=== PATIENT | male | born 1945 | race Caucasian/White ===

== ENCOUNTER 2019-09-16 11:16 | Outpatient (CLI) | payer MEDICARE, MEDICAID | END 2019-09-16 11:17 | disposition critical access hospital (66) | LOC: EMS 11:16 | PROVIDERS: ATTEND Surgery | DX: M54.5 Low back pain (principal) | CPT/HCPCS: A0425; A0429 ==

== ENCOUNTER 2019-09-16 11:35 | Emergency (ER) | payer MEDICARE, MEDICAID ==
[2019-09-16] MEDS ORDERED: KETOROLAC 60 MG/2 ML VIAL IM STA (13:05)
--- NOTE | 2019-09-16 13:08 | ED Physician Documentation ---
PD HPI BACK PAIN - Stated complaint Stated Complaint: BACK PX - Chief complaint Chief Complaint: Back Pain - History obtained from History obtained from: Patient (73-year-old male is brought in by EMS today with chief complaint of lower back pain right greater than left. The patient states that a week ago he was walking per his usual caring a bag of groceries when all of a sudden he felt a sharp pain in his lower back and he said that made him fall to the ground, he denies hitting his head or having any loss of consciousness. Since that time he has had this continued pain in his lower back radiating from side to side. He denies any loss of bowel or bladder function. He does have some numbness tingling to the balls of his feet, but he states this is chronic for him. He states he also has a chronic history of sciatica alternating sides. He has not taken any pain medicines or anti-inflammatories for this.) Review of Systems Constitutional: reports: Reviewed and negative Cardiac: reports: Reviewed and negative Respiratory: reports: Reviewed and negative Musculoskeletal: reports: Back pain. denies: Extremity pain Neurologic: reports: Reviewed and negative PD PAST MEDICAL HISTORY - Past Medical History Past Medical History: Yes Cardiovascular: None Respiratory: None Neuro: None Endocrine/Autoimmune: None GI: None : None Psych: None Musculoskeletal: None Derm: None - Past Surgical History Past Surgical History: No - Present Medications Home Medications: Ambulatory Orders Medication Instructions Recorded Confirmed Atorvastatin [Lipitor] 10 mg PO DAILY 07/29/19 07/29/19 Cholecalciferol (Vitamin D3) 25 mcg PO BID 07/29/19 07/29/19 [Vitamin D3] Cyanocobalamin (Vitamin B-12) 1,000 mcg PO BID 07/29/19 07/29/19 [Vitamin B-12] Saw [place] [Saw [place]] 450 mg PO BID 07/29/19 07/29/19 amLODIPine [Norvasc] 5 mg PO DAILY 07/29/19 07/29/19 traMADol [Ultram] 50 mg PO BID 07/29/19 07/29/19 Ibuprofen [Motrin] 800 mg PO Q8H PRN #30 tablet 09/16/19 - Allergies Allergies/Adverse Reactions: Allergies Allergy/AdvReac Type Severity Reaction Status Date / Time No Known Drug Allergies Allergy Unverified 09/16/19 11:45 - Social History Does the pt smoke?: Yes Smoking Status: Former smoker Does the pt drink ETOH?: Yes Does the pt have substance abuse?: No - Immunizations Immunizations are current?: No - POLST Patient has POLST: No PD ED PE NORMAL - General General: Alert and oriented X 3 - HEENT HEENT: Atraumatic, PERRL - Cardiac Cardiac: RRR - Respiratory Respiratory: No respiratory distress - Back Back: No CVA TTP - Extremities Extremities: No deformity, No tenderness to palpate, Normal ROM s pain, No edema PD ED PE EXPANDED - General General: No acute distress, Well developed/nourished - Back Back: Soft tissue tenderness (right paraspinous muscles. w/o sciatica pain. ), Limited ROM. No: Straight leg raise + R, Straight leg raise + L, CVA TTP right, CVA TTP left Results - Vitals Vitals: Vital Signs - 24 hr 09/16/19 09/16/19 11:42 13:44 Temperature 36.9 C Heart Rate 102 H 90 Respiratory 12 12 Rate Blood Pressure 156/69 H 150/70 H O2 Saturation 97 99 Oxygen O2 Source Room air PD MEDICAL DECISION MAKING - ED course Complexity details: reviewed results, re-evaluated patient, d/w patient (the pt was advised to start taking his Rx of Tramadol for pain control. The pt has improvement in pain after ketorolac IM. ) Departure - Departure Disposition: 01 Home, Self Care Clinical Impression: Back pain Qualifiers: Back pain location: low back pain Chronicity: acute Back pain laterality: right Sciatica presence: without sciatica Qualified Code(s): M54.5 - Low back pain Condition: Good Instructions: IBUPROFEN (Adult), ED Sciatica Prescriptions: Ibuprofen [Motrin] 800 mg PO Q8H PRN #30 tablet PRN Reason: PAIN &/OR FEVER Comments: Take the Tramadol prescription from your PCP for your pain control, use stool softners, fiber supplements to help prevent constipation. You can take the Ibuprofen as directed. Follow up with your PCP for further evaluation & testing. You may return to the ED for new or worsening symptoms. Discharge Date/Time: 09/16/19 13:46
[2019-09-16 13:46] VITALS: BP 150/70
== END 2019-09-16 13:46 | disposition home or self-care (01) ==
LOC: EDUNIT# → ED 11:35
DX: M54.5 Low back pain (principal); Z87.891 Personal history of nicotine dependence
CPT/HCPCS: 96372; 99283; 99284

== ENCOUNTER 2019-11-18 07:47 | Outpatient (CLI) | payer MEDICAID, MEDICARE, OTHER ==
[2019-11-18] MEDS ORDERED: IOVERSOL 320 100 ML VIAL IVP ONE (07:57)
[2019-11-18] MEDS ORDERED: IOVERSOL 320 50 ML VIAL ONE (07:57)
--- NOTE | 2019-11-18 15:17 | CT Report ---
Reason: CHRONIC LYMPHOCYTIC LEUKEMIA Procedure Date: 11/18/2019 Accession Number: [id number] / [id number] Procedure: CT - CHEST W CPT Code: Final Report FULL RESULT: EXAM: CT CHEST EXAM DATE: 11/18/2019 09:46 AM. CLINICAL HISTORY: CHRONIC LYMPHOCYTIC LEUKEMIA. COMPARISONS: L-SPINE 09/06/2006 12:44 PM T-SPINE 09/06/2006 12:11 PM. TECHNIQUE: Routine helical CT imaging was performed through the chest. IV contrast: None. Reconstructions: Coronal and sagittal. In accordance with CT protocol optimization, one or more of the following dose reduction techniques were utilized for this exam: automated exposure control, adjustment of mA and/or KV based on patient size, or use of iterative reconstructive technique. FINDINGS: Lungs/Pleura: Moderate paraseptal emphysema is present bilaterally. No lung masses or nodules. Mediastinum: No adenopathy or masses. Mild aortic and coronary arterial calcifications indicate atherosclerosis. Bones: Bones are diffusely osteopenic. Degenerative disk and facet disease is present at the cervicothoracic junction and there is also mild lower thoracic degenerative disk and facet disease. There are chronic appearing compression deformities of the T12, L1, and L2 vertebrae which are new since the lumbar and thoracic spine MRIs performed 09/06/2006. No bony lesion is apparent. Visualized Abdomen: Unremarkable. Other: None. IMPRESSION: 1. No thoracic adenopathy. 2. No lung masses are nodules. 3. Bilateral paraseptal emphysema. 4. Low-grade compression deformities of T12, L1, and L2, likely chronic. Bones are also osteopenic. RADIA
--- NOTE | 2019-11-18 15:29 | CT Report ---
Reason: CHRONIC LYMPHOCYTIC LEUKEMIA Procedure Date: 11/18/2019 Accession Number: [id number] / [id number] Procedure: CT - Abdomen/Pelvis W CPT Code: Final Report FULL RESULT: EXAM: CT ABDOMEN AND PELVIS WITH IV CONTRAST EXAM DATE: 11/18/2019 09:46 AM. CLINICAL HISTORY: Chronic lymphocytic leukemia. COMPARISONS: CT CHEST W 11/18/2019 9:28 AM. MRI L-SPINE 09/06/2006 12:44 PM. TECHNIQUE: Routine helical CT imaging was performed through the abdomen and pelvis. IV contrast: 100 mL Optiray 320. Enteric contrast: No. Reconstructions: Coronal and sagittal. In accordance with CT protocol optimization, one or more of the following dose reduction techniques were utilized for this exam: automated exposure control, adjustment of mA and/or KV based on patient size, or use of iterative reconstructive technique. FINDINGS: Lung Bases: Unremarkable. Liver: Normal. No masses. Gallbladder/Bile Ducts: Unremarkable. Spleen: Normal. Pancreas: Normal. Adrenal Glands: Normal. Kidneys: Normal. No masses or hydronephrosis. Retroaortic left renal vein, normal variant. Peritoneal Cavity/Bowel: Normal. No free fluid, free air or adenopathy. No masses or acute inflammatory process. The appendix is well visualized and normal. Pelvic Organs: Normal. The bladder and visualized pelvic organs are within normal limits. Vasculature: Some minimal vascular calcifications. No aneurysm. No leak. Bones: Comparing lumbar spine segments to the 2006 MRI study shows that there are multilevel areas of osteopenic anterior 2 column burst type compression injuries. T12 shows 50% height loss and about 3 mm posterior retropulsion. No stenosis. L1 shows about 30% superior endplate compression injury with posterior retropulsion of about 3 mm. L2 shows about 50% superior endplate compression with about 2 mm posterior retropulsion. No stenosis. L5 shows about 75% height loss with about 3 mm posterior retropulsion. There is diffuse global osteopenic change. No other bony fractures are noted. Left and right hip joint spaces are narrow. Other: None. IMPRESSION: 1. No abnormally enlarged lymph nodes, solid organs of the upper abdomen appear unremarkable. 2. Diffuse moderate to severe osteopenic change with multilevel old anterior 2 column compression burst type injuries involving T12, L1, L2 and L5. No severe stenosis. RADIA
[2019-11-19] MEDS ORDERED: IOVERSOL 320 100 ML VIAL IVP ONE (12:21)
[2019-11-19] MEDS ORDERED: IOVERSOL 320 50 ML VIAL PO ONE (12:21)
== END 2019-11-18 07:48 | disposition home or self-care (01) ==
LOC: LAB 07:47
PROVIDERS: ATTEND Internal Medicine
DX: C91.10 Chronic lymphocytic leukemia of B-cell type not having achieved remission (principal)
CPT/HCPCS: 71260; 74177

== ENCOUNTER 2020-09-28 10:59 | Emergency (ER) | payer MEDICAID, MEDICARE, OTHER ==
[2020-09-28] MEDS ORDERED: ALBUTEROL NEB 2.5 MG/3 ML INH STA (11:17)
[2020-09-28] MEDS ORDERED: DEXTROSE 50% ABBOJECT 25 GM/50 ML SYRINGE IVP STA (11:17)
[2020-09-28] MEDS ORDERED: INSULIN REGULAR HUMAN 100 UNIT/1 ML 10 ML MDV IVP STA (11:19)
[2020-09-28] MEDS ORDERED: SODIUM POLYSTYRENE SULFONATE 15 GM/60 ML BOTTLE PO STA (11:20)
[2020-09-28] MEDS ORDERED: CALCIUM GLUCONATE 1000 MG/10 ML VIAL IVP STA (12:15)
[2020-09-28 14:55] LABS: CALCIUM 9.2 mg/dL (8.5-10.3); POTASSIUM 5.3 mmol/L (3.5-5.0)
[2020-09-28 15:50] VITALS: BP 151/86
--- NOTE | 2020-09-28 15:53 | ED Physician Documentation ---
History of Present Illness - Stated complaint Stated Complaint: POTASSIUM LEVELS - Chief complaint Chief Complaint: General - History obtained from History obtained from: Patient - Additonal information Additional information: 74-year-old man with past medical history of multiple myeloma and CLL presents with fatigue over the past few days accompanied by elevated potassium at my clinic today of 6.6. Otherwise asymptomatic. Review of Systems Ten Systems: 10 systems reviewed and negative PD PAST MEDICAL HISTORY - Past Medical History Cardiovascular: None Respiratory: None Neuro: None Endocrine/Autoimmune: None GI: None : None Psych: None Musculoskeletal: None Derm: None - Past Surgical History Past Surgical History: No - Present Medications Home Medications: Ambulatory Orders Medication Instructions Recorded Confirmed Atorvastatin [Lipitor] 10 mg PO DAILY 07/29/19 09/28/20 Cholecalciferol (Vitamin D3) 25 mcg PO BID 07/29/19 09/28/20 [Vitamin D3] Cyanocobalamin (Vitamin B-12) 1,000 mcg PO BID 07/29/19 09/28/20 [Vitamin B-12] Saw [place] 450 mg PO BID 07/29/19 09/28/20 amLODIPine [Norvasc] 5 mg PO DAILY 07/29/19 09/28/20 traMADol [Ultram] 50 mg PO BID 07/29/19 09/28/20 Ibuprofen [Motrin] 800 mg PO Q8H PRN #30 tablet 09/16/19 09/28/20 Acyclovir [Zovirax] 400 mg PO BID 30 Days #60 tablet 09/06/20 Ondansetron HCl 8 mg PO Q8H PRN #30 tablet 09/06/20 Sulfamethox/Trimeth 800/160 1 each PO UD #12 tablet 09/06/20 [Bactrim Ds 800/160] dexAMETHasone [Decadron] 10 cap PO ONCE 09/27/20 09/28/20 - Allergies Allergies/Adverse Reactions: Allergies Allergy/AdvReac Type Severity Reaction Status Date / Time No Known Drug Allergies Allergy Verified 09/28/20 09:18 - Social History Does the pt smoke?: Yes Smoking Status: Former smoker Does the pt drink ETOH?: Yes Does the pt have substance abuse?: No - Immunizations Immunizations are current?: No - POLST Patient has POLST: No PD ED PE NORMAL - Vitals Vital signs reviewed: Yes - General General: Alert and oriented X 3, No acute distress, Well developed/nourished - HEENT HEENT: Atraumatic, PERRL, EOMI, Moist mucous membranes - Neck Neck: Supple, no meningeal sign - Cardiac Cardiac: RRR - Respiratory Respiratory: No respiratory distress - Abdomen Abdomen: Non tender, Non distended - Derm Derm: Normal color, Warm and dry - Extremities Extremities: No deformity - Neuro Neuro: Alert and oriented X 3 - Psych Psych: Normal mood, Normal affect Results - Vitals Vitals: Vital Signs - 24 hr 09/28/20 09/28/20 09/28/20 11:09 12:15 15:49 Temperature 37.1 C 36.5 C Heart Rate 96 85 99 Respiratory 19 17 12 Rate Blood Pressure 158/59 H 151/86 H O2 Saturation 100 98 Oxygen O2 Source Room air - Labs Labs: Laboratory Tests 09/28/20 14:40 Sodium 131 L Potassium 5.3 H Chloride 104 Carbon Dioxide 20 L Anion Gap 7.0 BUN 26 H Creatinine 2.0 H Estimated GFR (MDRD) 33 L Glucose 109 H Calcium 9.2 PD MEDICAL DECISION MAKING - ED course ED course: Repeat Potassium here improved to 5.3. EKG without peaked T waves. Patient will follow up outpatient on Saturday with Dr. Aguilar. Strict return precautions given. Departure - Departure Disposition: 01 Home, Self Care Clinical Impression: Hyperkalemia Condition: Good Instructions: Hyperkalemia Dc, Diet Low Potassium Dc Follow-Up: WENDY AGUILAR MD [Provider Admit Priv/Credential] - Comments: You were seen in the emergency department for hyperkalemia. The prior potassium down by giving you medications called Kayexalate, albuterol, insulin and dextrose. Please return to the emergency department if you experience any new o r worsening symptoms or other concerns. Follow-up with Dr. Aguilar on Saturday. You will need repeat blood work at that time. Discharge Date/Time: 09/28/20 16:28
== END 2020-09-28 16:28 | disposition home or self-care (01) ==
LOC: ED 10:59
DX: E87.5 Hyperkalemia (principal); Z87.891 Personal history of nicotine dependence
CPT/HCPCS: 36415; 80048; 93005; 94640; 96374; 96375; 99281; 99284; A9270; J1815

== ENCOUNTER 2021-12-20 08:20 | Outpatient (CLI) | payer OTHER ==
[2021-12-20 09:33] LABS: CHOL/HDL RATIO 3.3 (<5.0); CHOLESTEROL 132 mg/dL; HDL CHOLESTEROL 40 mg/dL; LDL CHOLESTEROL,CALCULATED 52 mg/dL; LDL/HDL RATIO 1.3 (<3.6); TRIGLYCERIDES 199 mg/dL; VLDL CHOLESTEROL 40 mg/dL
[2021-12-20 11:45] LABS: ESTIMATED AVERAGE GLUCOSE 108 mg/dL (70-100); HEMOGLOBIN A1c% 5.4 % (4.27-6.07)
== END 2021-12-20 08:21 | disposition home or self-care (01) ==
LOC: LAB 08:20
PROVIDERS: ATTEND Internal Medicine
DX: R73.03 Prediabetes (principal)
CPT/HCPCS: 36415; 80061; 83036; 83721

== ENCOUNTER 2022-04-25 08:59 | Outpatient (CLI) | payer OTHER ==
[2022-04-25 12:24] LABS: ESTIMATED AVERAGE GLUCOSE 128 mg/dL (70-100); HEMOGLOBIN A1c% 6.1 % (4.27-6.07)
== END 2022-04-25 09:00 | disposition home or self-care (01) ==
LOC: LAB 08:59
PROVIDERS: ATTEND Internal Medicine
DX: R73.03 Prediabetes (principal)
CPT/HCPCS: 36415; 83036

== ENCOUNTER 2022-05-02 15:09 | Outpatient (CLI) | payer OTHER ==
--- NOTE | 2022-05-02 17:18 | XRAY Report ---
PROCEDURE: Chest 2 View X-Ray INDICATIONS: PHENUMONIA,PLURTAL EFFUSION TECHNIQUE: 2 view(s) of the chest. COMPARISON: None. FINDINGS: Surgical changes and devices: None. Lungs and pleura: Large right-sided pleural effusion is likely present with complete opacification of right hemithorax. Left lung is clear. No left-sided pleural effusion or pneumothorax. Mediastinum: Mediastinal contours are normal. Heart size is normal. Bones and chest wall: No suspicious bony abnormalities. Soft tissues appear unremarkable. IMPRESSION: Likely large right pleural effusion with complete atelectasis of right lung. Left lung i s clear. Reviewed by: Dion Curry MD on 05/02/2022 5:17 PM PDT Approved by: Dion Curry MD on 05/02/2022 5:17 PM PDT Station ID: [id number]
== END 2022-05-02 15:10 | disposition home or self-care (01) ==
LOC: DI 15:09
PROVIDERS: ATTEND Internal Medicine
DX: C91.10 Chronic lymphocytic leukemia of B-cell type not having achieved remission (principal); C90.00 Multiple myeloma not having achieved remission

== ENCOUNTER 2022-05-03 10:19 | Outpatient (CLI) | payer OTHER ==
[2022-05-03 10:37] LABS: INR 1.3 (0.8-1.2); PT - PROTHROMBIN TIME 14.6 secs (9.9-12.6)
[2022-05-03] MEDS ORDERED: BUPIVACAINE 0.5% PF 10 ML VIAL ONE (11:07)
[2022-05-03] MEDS ORDERED: BUPIVACAINE 0.5% PF 10 ML VIAL IM ONE (12:40)
--- NOTE | 2022-05-03 12:44 | Ultrasound Report ---
PROCEDURE: Thoracentesis Puncture INDICATIONS: PLEURAL EFFUSION TECHNIQUE: The indications, alternatives, benefits, risks, and complications of the procedure were explained to the patient. Written informed consent was obtained and placed in the chart. The chest was examined sonographically, and an appropriate site was chosen for thoracentesis. The skin was prepared and sebastian ped in the usual sterile fashion, and 1% lidocaine was infiltrated from the skin down through the ple ural surface. A 19-gauge catheter-covered needle was then introduced into the pleural space, the cat heter was advanced and the needle was withdrawn, and thereafter pleural fluid was aspirated. The cat heter was then removed and a dressing was applied. COMPARISON: None. FINDINGS: Access site: Right hemithorax. Needle: One-Step centesis catheter with introducer needle. Fluid volume and description: Hemorrhagic 2 L Fluid sent for diagnostic testing: Yes Medications: 1% lidocaine for local anaesthesia. Complications: Small right pneumothorax on post chest x-ray. IMPRESSION: Successful ultrasound-guided thoracentesis. Reviewed by: Jade Enciso MD on 05/03/2022 12:42 PM PDT Approved by: Jade Enciso MD on 05/03/2022 12:42 PM PDT Station ID: [id number]
--- NOTE | 2022-05-03 12:44 | XRAY Report ---
PROCEDURE: Post Thoracentesis 1V CXR INDICATIONS: POST THORACENTESIS TECHNIQUE: One view of the chest was acquired. COMPARISON: Chest x-ray 05/02/2022 FINDINGS: Surgical changes and devices: None. Lungs and pleura: Interval decreased right pleural fluid although remaining prominent. There is a sm all right pneumothorax measuring approximately 6 mm. Mediastinum: Mediastinal contours appear normal. Heart size is normal. Bones and chest wall: No suspicious bony lesions. Overlying soft tissues appear unremarkable. IMPRESSION: Small right pneumothorax without midline shift. Reviewed by: Jade Enciso MD on 05/03/2022 12:43 PM PDT Approved by: Jade Enciso MD on 05/03/2022 12:43 PM PDT Station ID: [id number]
[2022-05-03 14:11] LABS: BF CLARITY BLOODY; BF COLOR BLOODY; BF SOURCE PLEURAL; CC,BF RBC 61000 /mm^3; CC,BF WBC 376 /mm^3
[2022-05-03 14:43] LABS: EOSINOPHILS %,BODY FLUID 9 %; LYMPHOCYTES %,BODY FLUID 68 %; MESOTHELIAL %, BF 10 %; MONOCYTES %,BODY FLUID 12 %; NEUTROPHILS %, BF 1 %
[2022-05-03 15:24] VITALS: BP 144/75
--- NOTE | 2022-05-03 15:57 | XRAY Report ---
PROCEDURE: Post Thoracentesis 1V CXR INDICATIONS: pnuemothorax TECHNIQUE: One view of the chest was acquired. COMPARISON: Chest x-ray 05/03/2022 FINDINGS: Surgical changes and devices: None. Lungs and pleura: Previous pneumothorax has increased in size currently measuring 1.3 cm compared to 0.6 cm. No midline shift Mediastinum: Mediastinal contours appear normal. Heart size is normal. Bones and chest wall: No suspicious bony lesions. Overlying soft tissues appear unremarkable. IMPRESSION: Interval increased size of pneumothorax without midline shift. Reviewed by: Jade Enciso MD on 05/03/2022 3:56 PM PDT Approved by: Jade Enciso MD on 05/03/2022 3:56 PM PDT Station ID: [id number]
== END 2022-05-03 10:20 | disposition home or self-care (01) ==
LOC: LAB 10:19
PROVIDERS: ATTEND Internal Medicine
DX: C91.10 Chronic lymphocytic leukemia of B-cell type not having achieved remission (principal); J90 Pleural effusion, not elsewhere classified; J95.811 Postprocedural pneumothorax
CPT/HCPCS: 32555; 36415; 85610; 87070; 87205; 89051

== ENCOUNTER 2022-05-03 16:03 | Observation (INO) | payer OTHER ==
[2022-05-03] MEDS ORDERED: LIDOCAINE 2%-EPI 1:100000 20 ML MDV SUBQ STA (16:29)
--- NOTE | 2022-05-03 16:37 | ED Physician Documentation ---
History of Present Illness - Stated complaint Stated Complaint: COMPLICATIONS - Chief complaint Chief Complaint: Resp - History obtained from History obtained from: Patient - History of Present Illness Timing: Today Pain level max: 0 Pain level now: 0 - Additonal information Additional information: 76-year-old male with chronic CLL who was having a thoracentesis today, after the thoracentesis for the pleural effusion noted to have a pneumothorax. They repeated an x-ray several hours later which showed an increase in size of pneumothorax. Patient was sent to the emergency department for tube thoracostomy. Patient states that he has felt short of breath at home but is currently not short of breath. Feels much better after the thoracentesis. No fever, no chills. No cough. No congestion. Nothing makes it better or worse Review of Systems Ten Systems: 10 systems reviewed and negative Constitutional: denies: Fever, Chills Nose: denies: Rhinorrhea / runny nose, Congestion Respiratory: denies: Cough, Wheezing GI: denies: Abdominal Pain, Nausea, Vomiting, Diarrhea Musculoskeletal: denies: Back pain Neurologic: denies: Headache PD PAST MEDICAL HISTORY - Past Medical History Cardiovascular: None Respiratory: None Neuro: None Endocrine/Autoimmune: None GI: None : None Psych: None Musculoskeletal: None Derm: None - Past Surgical History Past Surgical History: No - Present Medications Home Medications: Ambulatory Orders Medication Instructions Recorded Confirmed Atorvastatin [Lipitor] 10 mg PO DAILY 07/29/19 05/02/22 Cholecalciferol (Vitamin D3) 25 mcg PO BID 07/29/19 05/02/22 [Vitamin D3] Cyanocobalamin (Vitamin B-12) 1,000 mcg PO BID 07/29/19 05/02/22 [Vitamin B-12] Saw [place] 450 mg PO BID 07/29/19 05/02/22 amLODIPine [Norvasc] 5 mg PO DAILY 07/29/19 05/02/22 traMADol [Ultram] 50 mg PO BID 07/29/19 05/02/22 Ibuprofen [Motrin] 800 mg PO Q8H PRN #30 tablet 09/16/19 05/02/22 Acyclovir [Zovirax] 400 mg PO BID 30 Days #60 tablet 09/06/20 05/02/22 ondansetron HCL [Ondansetron HCl] 8 mg PO Q8H PRN #30 tablet 09/06/20 05/02/22 dexAMETHasone [Decadron] 10 cap PO ONCE 09/27/20 05/02/22 Lenalidomide [Revlimid] 10 mg PO DAILY 05/03/21 05/02/22 Sulfamethox/Trimeth 800/160 1 tablet PO UD 90 Days #36 tablet 08/14/21 05/02/22 [Bactrim Ds] Sulfamethox/Trimeth 800/160 1 tablet PO DAILY 30 Days #12 08/16/21 05/02/22 [Bactrim Ds] tablet Albuterol Sulf [Ventolin Hfa 1 - 2 puffs INH Q4HR PRN #18 gm 05/02/22 Inhaler] Albuterol Sulf [Ventolin Hfa 1 - 2 puffs INH Q4HR PRN #18 gm 05/02/22 Inhaler] Azithromycin [Zithromax] 250 mg PO UD 5 Days #6 tablet 05/02/22 predniSONE [Prednisone 21-TAB dose 10 mg PO UD #1 each 05/02/22 pack] - Allergies Allergies/Adverse Reactions: Allergies Allergy/AdvReac Type Severity Reaction Status Date / Time No Known Drug Allergies Allergy Verified 05/03/22 16:11 - Social History Does the pt smoke?: Yes Smoking Status: Former smoker Does the pt drink ETOH?: Yes Does the pt have substance abuse?: No - Immunizations Immunizations are current?: No - POLST Patient has POLST: No PD ED PE NORMAL - Vitals Vital signs reviewed: Yes - General General: Alert and oriented X 3, No acute distress, Well developed/nourished - HEENT HEENT: Moist mucous membranes - Neck Neck: Supple, no meningeal sign - Cardiac Cardiac: RRR - Respiratory Respiratory: No respiratory distress, Other (Diminished breath sounds right side) - Abdomen Abdomen: Soft, Non tender, Non distended - Back Back: No spinal TTP - Derm Derm: Warm and dry - Extremities Extremities: No edema - Neuro Neuro: Alert and oriented X 3 - Psych Psych: Normal mood, Normal affect Results - Vitals Vitals: Vital Signs - 24 hr 05/03/22 16:09 Temperature 36.8 C Heart Rate 103 H Respiratory 23 Rate Blood Pressure 165/75 H O2 Saturation 93 Oxygen O2 Source Room air - Rads (name of study) cxr Radiology: Final report received, EMP read contemporaneously, See rad report Procedures - Chest Tube (location) other Chest tube preparation: Consent obtained, Time out completed, Sterile prep and drape Chest tube location: Right, Intercostal space - enter (3rd), Other (anterior mid clavicular) Chest tube anesthesia: Lidocaine Chest tube size: 13 Chest tube return: Air, Blood, Connected to suction Chest tube after care: Confirmed with xray, Pt tolerated well PD MEDICAL DECISION MAKING - ED course Complexity details: reviewed old records, reviewed results, re-evaluated patient, considered differential, d/w patient, d/w property consultant ED course: 76-year-old male with a pneumothorax after a thoracentesis today. It was increasing in size on subsequent chest x-ray. Sent here for tube thoracostomy. Chest tube was placed. Tolerated well. Thora vent chest tube was used. Improved on repeat chest x-ray. Discussed the case with Dr. Redmond, general surgery who will place the patient in observation for further care. Had about 900 mL of serosanguineous fluid returned after chest tube placement. This document was made in part using voice recognition software. While efforts are made to proofread this document, sound alike and grammatical errors may occur. IMPRESSION: 1. Partial improvement of right pneumothorax post chest tube insertion. No evidence of tension. 2. Small to moderate residual right pleural effusion. Departure - Departure Disposition: ED Place in Observation Clinical Impression: Acute pneumothorax, Pleural effusion, Thoracostomy tube in place Condition: Stable Discharge Date/Time: 05/03/22 18:30
[2022-05-03] MEDS ORDERED: LIDOCAINE MPF 2%-EPI 1:200000 20 ML VIAL SUBQ STA (16:49)
[2022-05-03] MEDS ORDERED: SODIUM CHLORIDE FLUSH 0.9% 10 ML SYRINGE IVP PRN (17:11)
[2022-05-03] MEDS ORDERED: MORPHINE 2 MG/ML CARPUJECT IVP PRN (17:11)
[2022-05-03] MEDS ORDERED: ACETAMINOPHEN 325 MG TABLET PO PRN (17:11)
[2022-05-03] MEDS ORDERED: ONDANSETRON ODT 4 MG TABLET TL PRN (17:11)
[2022-05-03 17:23] LABS: BASOPHILS # (AUTO) 0.1 10^3/uL (0.0-0.1); BASOPHILS % (AUTO) 0.6 %; EOSINOPHILS # (AUTO) 0.1 10^3/uL (0.0-0.7); EOSINOPHILS % (AUTO) 0.7 %; HCT - HEMATOCRIT 35.8 % (42.0-52.0); HGB - HEMOGLOBIN 11.2 g/dL (14.0-18.0); LYMPHOCYTES # (AUTO) 1.2 10^3/uL (1.5-3.5); LYMPHOCYTES % (AUTO) 11.8 %; MEAN CORPUSCULAR HEMOGLOBIN 31.5 pg (27.0-31.0); MEAN CORPUSCULAR HGB CONC 31.3 g/dL (32.0-36.0); MEAN CORPUSCULAR VOLUME 100.6 fL (80.0-94.0); MEAN PLATELET VOLUME 8.9 fL (7.4-11.4); MONOCYTES % (AUTO) 9.8 %; NEUTROPHILS % (AUTO) 76.6 %; PLT - PLATELET COUNT 414 10^3/uL (130-450); RED BLOOD COUNT 3.56 10^6/uL (4.70-6.10); WHITE BLOOD COUNT 10.5 x10^3/uL (4.8-10.8)
[2022-05-03 17:34] LABS: ALBUMIN 2.9 g/dL (3.2-5.5); ALBUMIN/GLOBULIN RATIO 0.6 (1.0-2.2); BILIRUBIN,TOTAL 0.7 mg/dL (0.2-1.0); CALCIUM 8.7 mg/dL (8.5-10.3); CREATININE 1.2 mg/dL (0.6-1.2); TOTAL PROTEIN 7.5 g/dL (6.7-8.2)
--- NOTE | 2022-05-03 17:42 | XRAY Report ---
PROCEDURE: Chest 1 View X-Ray INDICATIONS: s/p chest tube TECHNIQUE: One view of the chest was acquired. COMPARISON: Films performed earlier the same day at 1516 hours FINDINGS: Surgical changes and devices: New right-sided chest tube. Lungs and pleura: There is been partial reinflation of the right lung with a small residual upper lo be pneumothorax. Residual small to moderate size right pleural effusion. The left lung is fully infla veronika and clear. Mediastinum: Stable mediastinal contour including a tortuous thoracic aorta. Normal size heart. Bones and chest wall: No suspicious bony lesions. Overlying soft tissues appear unremarkable. IMPRESSION: 1. Partial improvement of right pneumothorax post chest tube insertion. No evidence of tension. 2. Small to moderate residual right pleural effusion. Reviewed by: Mali Parmar MD on 05/03/2022 4:40 PM [facility] Approved by: Mali Parmar MD on 05/03/2022 4:40 PM D[facility] Station ID: [id number]
[2022-05-03] MEDS ORDERED: oxyCODONE 5 MG TABLET PO STA (17:55)
[2022-05-03] MEDS ORDERED: AZITHROMYCIN 250 MG TABLET PO ONE (18:00)
--- NOTE | 2022-05-03 18:13 | SURGERY HX AND PHYSICAL(T) ---
Surgical History & Physical - Chief Complaint/HPI Chief Complaint: shortness of breath, pneumothorax after thoracentesis History of Present Illness: This is a 76-year-old gentleman with chronic CLL who was seen by his oncologist yesterday and noted to have marked shortness of breath. The patient was noted to have a pneumonia about 3 weeks ago. Patient tells me he was unable to take more than 2 or 3 steps without being so short of breath he needed to sit down. The patient had a chest x-ray which demonstrated complete opacification of the right lung secondary to a pleural effusion. This morning, the patient underwent a thoracentesis by interventional radiology. Approximately 2 L of serosanguineous fluid was removed. Post procedure chest x-ray revealed a pneumothorax. Several hours later, repeat x-ray showed an increase in the size of the pneumothorax. At this time, the patient was transferred to the emergency department where a thoracostomy tube was placed with significant output of 1900 mL serosanguineous fluid and also a moderate amount of air. His chest tube is now to suction. I have been consulted for admission. At the time of my interview, the patient denies any shortness of breath. He has been coughing a little bit since his chest tube was placed. He complains of some chest pain at the chest tube insertion site. He has no other complaint of pain. He denies any fevers or chills. - PMH/PSH/Social Hx Neurological History: None Cardiovascular: Hypertension, High cholesterol Respiratory: None, Other (as per HPI, +smoking history, quit 5 years ago) Skin: None Endocrine/Autoimmune: None Gastrointestinal: None Urinary: None Musculoskeletal: None Blood Disorders: None Psychiatric: None PMH Other: CLL Smoking Status: Former smoker Does the pt drink ETOH?: Yes Frequency: Occasional Does the pt have substance abuse?: No - Family Hx Family Hx: Unremarkable - Home Meds and Allergies Home Medications: Atorvastatin [Lipitor] 10 mg PO DAILY 07/29/19 Cholecalciferol (Vitamin D3) [Vitamin D3] 25 mcg PO BID 07/29/19 Cyanocobalamin (Vitamin B-12) [Vitamin B-12] 1,000 mcg PO BID 07/29/19 Saw [place] 450 mg PO BID 07/29/19 amLODIPine [Norvasc] 5 mg PO DAILY 07/29/19 traMADol [Ultram] 50 mg PO BID 07/29/19 dexAMETHasone [Decadron] 10 cap PO ONCE 09/27/20 Lenalidomide [Revlimid] 10 mg PO DAILY 05/03/21 Allergies/Adverse Reactions: Allergies Allergy/AdvReac Type Severity Reaction Status Date / Time No Known Drug Allergies Allergy Verified 05/03/22 16:11 - Review of Systems Constitutional: Other (A complete 10 point review of symptoms is otherwise negative except for that noted in HPI and PMH.) - Vital Signs Heart Rate: 108 Blood Pressure: 144/68 Temperature: 36.8 C Respiratory Rate: 18 O2 Saturation: 94 Weight (kg): 82.554 kg Height: 1.91 m - Physical Exam General Appearance: positive: No acute distress, Alert Eyes Bilatera: positive: Normal inspection, PERRL, EOMI ENT: positive: ENT inspection nml Neck: positive: Trachea midline Respiratory: positive: Breath sounds nml (left), Rhonchi (R sided), Other (R anterior chest tube in place, 1900mL serosang fluid out since placement, 2+ air leak with cough) Cardiovascular: positive: Tachycardia (mild, 110s) Peripheral Pulses: positive: 2+ Abdomen: positive: Non-tender, No distention. negative: Guarding, Rebound Skin: positive: Color nml Extremities: positive: Non-tender, Full ROM Neurologic/Psychiatric: positive: Oriented x3 - Patient Review Patient Review: Problems were reviewed with the patient during this visit. Medications were reviewed with the patient during this visit. Allergies were reviewed this patient during this visit. Pertinent Tests Reviewed: All pertitent test for this patient were reviewed. - Assessment & Plan Assessment and Plan: 76-year-old gentleman with 3-week history of shortness of breath, status postthoracentesis, now with persist pleural effusion and new pneumothorax, status post chest tube placement on 05/03/2022. 1. Pleural effusion, pneumothorax -Fluid from thoracentesis this morning sent for cytology and analysis -2 L of fluid removed at the thoracentesis, and an additional 1900 mL of fluid have drained since the chest tube was placed. -R Lung is partially reexpanded on repeat chest x-ray after chest tube placement. -Chest tube is to continuous wall suction at -20 cm of water, 2+ airleak with cough -Plan to leave tube to suction overnight. If lung expanded on a.m. chest x-ray, plan to place tube to waterseal tomorrow morning. -Plan for chest tube removal when output has decreased and lung remains expanded when chest tube is to waterseal. -I discussed the imaging findings and plan of care with the patient. I explained that he will be here at least until tomorrow afternoon. He voiced understanding, his questions were answered, and he is agreeable to this plan of care. 2. Presumed community-acquired pneumonia -The patient was started on a steroid taper and Z-Bernardo by his oncology provider yesterday. These medications have been continued on admission 3. CLL, BPH, hypertension, hyperlipidemia -The patient's oncologist stopped his CLL medication yesterday -All other home medications have been restarted SCDs for DVT prophylaxis Regular diet Full code The patient has been admitted under observation status at this time. There are currently no beds available on the [facility] floor, so the patient will be observed in the ICU under floor status. I explained to the patient that his care will be transitioned to my partner Dr. Trav Yang tomorrow AM.
[2022-05-03] MEDS ORDERED: ALBUTEROL NEB 2.5 MG/3 ML INH PRN (18:23)
[2022-05-03] MEDS: ACYCLOVIR 200 MG CAPSULE PO SCH (20:29)
[2022-05-03] MEDS: ATORVASTATIN 10 MG TABLET PO SCH (20:31)
[2022-05-03] MEDS: SODIUM CHLORIDE FLUSH 0.9% 10 ML SYRINGE IVP SCH (20:31)
[2022-05-03] MEDS: oxyCODONE 5 MG TABLET PO PRN (23:05)
[2022-05-04] MEDS: oxyCODONE 5 MG TABLET PO PRN (02:59)
[2022-05-04] MEDS: predniSONE 20 MG TABLET PO SCH (08:43)
[2022-05-04] MEDS: amLODIPine 5 MG TABLET PO SCH (08:47)
[2022-05-04] MEDS: ACYCLOVIR 200 MG CAPSULE PO SCH ×2 (08:47→20:33)
[2022-05-04] MEDS: SODIUM CHLORIDE FLUSH 0.9% 10 ML SYRINGE IVP SCH ×3 (08:49→20:33)
[2022-05-04] MEDS ORDERED: SULFAMETH/TRIMETH DS 800/160 MG TABLET PO SCH ×2 (09:00)
[2022-05-04] MEDS ORDERED: LENALIDOMIDE 10 MG PO SCH (09:00)
--- NOTE | 2022-05-04 09:05 | XRAY Report ---
PROCEDURE: Chest 1 View X-Ray INDICATIONS: pleural effusion, PTX, s/p CT placement TECHNIQUE: One view of the chest was acquired. COMPARISON: Chest radiographs 05/03/2022 FINDINGS: Surgical changes and devices: Right-sided chest tube is seen in stable position. Lungs and pleura: Right pneumothorax has nearly completely resolved. Small to moderate pleural effus ion appears mildly increased in size. There is atelectasis of the adjacent right lung. Left lung is c lear. Mediastinum: No mediastinal shift. Cardiomediastinal silhouette is stable. Bones and chest wall: No suspicious bony lesions. Overlying soft tissues appear unremarkable. IMPRESSION: 1.Stable right-sided chest tube with near complete resolution of a right apical pneumothorax. 2.Mildly increased size of a small moderate right pleural effusion. Reviewed by: Shaun Mustafa MD on 05/04/2022 9:04 AM PDT Approved by: Shaun Mustafa MD on 05/04/2022 9:04 AM PDT Station ID: [id number]
--- NOTE | 2022-05-04 10:24 | PHARMACY PROGRESS NOTE ---
- Best Possible Medication History Admit Date and Time: 05/03/22 1711 Processed by: Pharmacy Medication History completed: Yes Patient Interview: Completed Secondary Source(s): Insurance records As the person ultimately responsible for medication therapy, providers are able to order a medication from an existing home medication list in [facility] via the "Reconcile Routine" prior to Confirmation of that medication by instructional support specialist. Such practice is discouraged except when the physician, in their clinical judgment, deems that a medical need exists for a medication without regard to previous use.
--- NOTE | 2022-05-04 14:28 | PROVIDER PROGRESS NOTE ---
Subjective - Subjective Pt reports feeling: Improved (breathing much improved) Objective - Vital Signs/Intake & Output Reviewed Vital Signs: Yes Vital Signs: Vital Signs x48h Temp Pulse Resp BP Pulse Ox O2 Flow Rate 05/04/22 12:50 37.1 C 106 H 22 136/76 H 95 0.5 05/04/22 09:00 36.8 C 114 H 21 140/66 H 93 0.5 05/04/22 07:49 1 Intake & Output: Intake & Output 05/01/22 05/02/22 05/03/22 05/04/22 23:59 23:59 23:59 23:59 Intake Total 390 Output Total 50 1050 Balance -50 -660 - Objective General Appearance: positive: No acute distress, Alert Eyes Bilateral: positive: PERRL, EOMI, No scleral icterus Respiratory: positive: No respiratory distress, Other (chest tube possible airleak dressing reinforced serosanguinous drainage) Abdomen: positive: No distention Neurologic/Psychiatric: positive: Oriented x3 - Lab Results Fish Bones: 05/03/22 17:18 05/03/22 17:18 Other Labs: Lab Results x24hrs 05/03/22 05/03/22 05/03/22 Range/Units 19:27 17:18 17:18 WBC 10.5 (4.8-10.8) x10^3/uL RBC 3.56 L (4.70-6.10) 10^6/uL Hgb 11.2 L (14.0-18.0) g/dL Hct 35.8 L (42.0-52.0) % MCV 100.6 H (80.0-94.0) fL MCH 31.5 H (27.0-31.0) pg MCHC 31.3 L (32.0-36.0) g/dL RDW 14.0 (12.0-15.0) % Plt Count 414 (130-450) 10^3/uL MPV 8.9 (7.4-11.4) fL Neut # (Auto) 8.0 H (1.5-6.6) 10^3/uL Lymph # (Auto) 1.2 L (1.5-3.5) 10^3/uL [place] # (Auto) 1.0 (0.0-1.0) 10^3/uL Eos # (Auto) 0.1 (0.0-0.7) 10^3/uL Baso # (Auto) 0.1 (0.0-0.1) 10^3/uL Absolute Nucleated RBC 0.00 x10^3/uL Nucleated RBC % 0.0 /100WBC Sodium 135 (135-145) mmol/L Potassium 4.0 (3.5-5.0) mmol/L Chloride 96 L (101-111) mmol/L Carbon Dioxide 27 (21-32) mmol/L Anion Gap 12.0 (6-13) BUN 14 (6-20) mg/dL Creatinine 1.2 (0.6-1.2) mg/dL Estimated GFR (MDRD) 59 L (>89) Glucose 115 H (70-100) mg/dL Calcium 8.7 (8.5-10.3) mg/dL Total Bilirubin 0.7 (0.2-1.0) mg/dL AST 20 (10-42) IU/L ALT 24 (10-60) IU/L Alkaline Phosphatase 100 (42-121) IU/L Total Protein 7.5 (6.7-8.2) g/dL Albumin 2.9 L (3.2-5.5) g/dL Globulin 4.6 H (2.1-4.2) g/dL Albumin/Globulin Ratio 0.6 L (1.0-2.2) Nasal Screen MRSA (PCR) NEGATIVE (NEGATIVE) SARS-CoV-2 (PCR) 05/03/22 Range/Units 17:17 WBC (4.8-10.8) x10^3/uL RBC (4.70-6.10) 10^6/uL Hgb (14.0-18.0) g/dL Hct (42.0-52.0) % MCV (80.0-94.0) fL MCH (27.0-31.0) pg MCHC (32.0-36.0) g/dL RDW (12.0-15.0) % Plt Count (130-450) 10^3/uL MPV (7.4-11.4) fL Neut # (Auto) (1.5-6.6) 10^3/uL Lymph # (Auto) (1.5-3.5) 10^3/uL [place] # (Auto) (0.0-1.0) 10^3/uL Eos # (Auto) (0.0-0.7) 10^3/uL Baso # (Auto) (0.0-0.1) 10^3/uL Absolute Nucleated RBC x10^3/uL Nucleated RBC % /100WBC Sodium (135-145) mmol/L Potassium (3.5-5.0) mmol/L Chloride (101-111) mmol/L Carbon Dioxide (21-32) mmol/L Anion Gap (6-13) BUN (6-20) mg/dL Creatinine (0.6-1.2) mg/dL Estimated GFR (MDRD) (>89) Glucose (70-100) mg/dL Calcium (8.5-10.3) mg/dL Total Bilirubin (0.2-1.0) mg/dL AST (10-42) IU/L ALT (10-60) IU/L Alkaline Phosphatase (42-121) IU/L Total Protein (6.7-8.2) g/dL Albumin (3.2-5.5) g/dL Globulin (2.1-4.2) g/dL Albumin/Globulin Ratio (1.0-2.2) Nasal Screen MRSA (PCR) (NEGATIVE) SARS-CoV-2 (PCR) NOT DETECTED - Diagnostic Imaging Diagnostic Imaging Results: positive: Final report reviewed (small right ptx present/ much improved), Read independently Assessment/Plan - Problem List (1) Acute pneumothorax Impression: continue present care cxr am tomorrow
[2022-05-04] MEDS: AZITHROMYCIN 250 MG TABLET PO SCH (16:12)
[2022-05-04] MEDS: IBUPROFEN 800 MG TABLET PO PRN (16:12)
[2022-05-04] MEDS: ATORVASTATIN 10 MG TABLET PO SCH (19:15)
[2022-05-05] MEDS: SODIUM CHLORIDE FLUSH 0.9% 10 ML SYRINGE IVP SCH ×2 (00:30→08:58)
[2022-05-05] MEDS: IBUPROFEN 800 MG TABLET PO PRN (05:26)
--- NOTE | 2022-05-05 07:31 | XRAY Report ---
PROCEDURE: Chest 1 View X-Ray INDICATIONS: f/u pt TECHNIQUE: One view of the chest was acquired. COMPARISON: Several prior CXR including 05/04/2022, 05/03/2022, 05/02/2022. CT chest of 11/18/2019. FINDINGS: Surgical changes and devices: Right pleural drain with the tip at the apex appears similar. Lungs and pleura: Right apical pneumothorax is no longer appreciated. Moderate right pleural effusio n is similar. No left pleural effusion. Right lung volume loss. Similar opacity at the right lung bas e Mediastinum: Mediastinal contours appear unchanged. Heart size is within normal limits. Bones and chest wall: No suspicious bony lesions. Overlying soft tissues appear unremarkable. IMPRESSION: Right apical pneumothorax is no longer appreciated. Right pleural drain is unchanged. Moderate right pleural effusion is similar. Reviewed by: Demarcus Villarreal MD on 05/05/2022 6:30 AM DIGNA Approved by: Demarcus Villarreal MD on 05/05/2022 6:30 AM DIGNA Station ID: [id number]
[2022-05-05] MEDS: predniSONE 20 MG TABLET PO SCH (08:57)
[2022-05-05] MEDS: ACYCLOVIR 200 MG CAPSULE PO SCH (08:58)
[2022-05-05] MEDS: AZITHROMYCIN 250 MG TABLET PO SCH (08:58)
[2022-05-05] MEDS: amLODIPine 5 MG TABLET PO SCH (08:58)
--- NOTE | 2022-05-05 14:37 | Discharge Plan ---
Discharge Plan Problem Reviewed?: Yes Disposition: Home, Self Care Condition: Good Diet: Regular Activity Restrictions: Activity as Tolerated Shower Restrictions: No (keep dressing dry) Driving Restrictions: No Instruction Topics: Effusion Pleural, Tubes Chest Health Concerns: fluid right lung and air leak right lung/ much improved Plan of Treatment: follow up emergency [facility] saturday or saturday please call to make an appointment [phone] Assessment: much improved after right chest fluid and air removed Additional Instructions or Follow Up instructions: as above follow up in the surgery office saturday or saturday please call to make an appointment [phone] No Smoking: If you smoke, Please STOP! Call for help. Follow-up with: Vince Ann MD [Primary Care Provider] -
--- NOTE | 2022-05-05 14:41 | DISCHARGE SUMMARY ---
"Discharge Summary Admit Date: 05/03/22 Discharge Date: 05/05/22 Discharging Provider: abiodun weaver md Code Status: Attempt Resuscitation Discharge Facility Name: [facility] - DIAGNOSES Admission Diagnoses: history right pleural effusion following pneumonia pneumothorax after pleuralcentesis requiring chest tube Discharge Diagnoses with Status of Each Condition: home with anterior chest tube in good condition. much improved - HPI History of Present Illness: as above - CONSULTS | PROCEDURES Procedures: chest tube per ED and then chest tube care and observation - HOSPITAL COURSE Hospital Course: much improved. little fluid drainage and air leak much improved by time of discharge - ALLERGIES Allergies/Adverse Reactions: Allergies Allergy/AdvReac Type Severity Reaction Status Date / Time No Known Drug Allergies Allergy Verified 05/03/22 16:11 - MEDICATIONS Home Medications: Ambulatory Orders Medication Instructions Recorded Confirmed Cholecalciferol (Vitamin D3) 25 mcg PO DAILY 07/29/19 05/04/22 [Vitamin D3] Cyanocobalamin (Vitamin B-12) 1,000 mcg PO DAILY 07/29/19 05/04/22 [Vitamin B-12] Saw [place] 450 mg PO DAILY 07/29/19 05/04/22 traMADol [Ultram] 50 mg PO TID PRN 07/29/19 05/04/22 Acyclovir [Zovirax] 400 mg PO BID 30 Days #60 tablet 09/06/20 05/04/22 Lenalidomide [Revlimid] 10 mg PO DAILY 05/03/21 05/04/22 Sulfamethox/Trimeth 800/160 1 tablet PO UD 90 Days #36 tablet 08/14/21 05/04/22 [Bactrim Ds] Albuterol Sulf [Ventolin Hfa 1 - 2 puffs INH Q4HR PRN #18 gm 05/02/22 05/04/22 Inhaler] Azithromycin [Zithromax] 250 mg PO UD 5 Days #6 tablet 05/02/22 05/04/22 predniSONE [Prednisone 21-TAB dose 10 mg PO UD #1 each 05/02/22 05/04/22 pack] Naproxen 250 mg PO TID PRN 05/04/22 05/04/22 metFORMIN [Glucophage] 500 mg PO BIDWM 05/04/22 05/04/22 - PHYSICAL EXAM AT DISCHARGE General Appearance: positive: No acute distress, Alert Eyes Bilateral: positive: PERRL, EOMI, No scleral icterus ENT: positive: No signs of dehydration Neck: positive: Thyroid nml, No JVD Respiratory: positive: No respiratory distress Abdomen: positive: No distention Neurologic/Psychiatric: positive: Oriented x3 - LABS Result Diagrams: 05/03/22 17:18 05/03/22 17:18 - DIAGNOSTIC IMAGING Diagnostic Imaging Results: Final report reviewed (no pneumothorax and minimal pleural effusion), Read independently - QUALITY (Female Hip Fx Only) Was patient sent home on osteoporosis medication?: No - FOLLOW UP Follow Up: surgery office saturday or saturday please call to make an appointment [phone]"
[2022-05-05 15:00] VITALS: BP 132/80
== END 2022-05-05 15:10 | disposition home or self-care (01) ==
LOC: ED 16:03 → ICU 17:11
PROVIDERS: ADMIT Surgery; ATTEND Surgery
DX: J95.811 Postprocedural pneumothorax (principal); C91.10 Chronic lymphocytic leukemia of B-cell type not having achieved remission; I10 Essential (primary) hypertension; E78.00 Pure hypercholesterolemia, unspecified; J90 Pleural effusion, not elsewhere classified; N40.0 Benign prostatic hyperplasia without lower urinary tract symptoms; Z20.822 Contact with and (suspected) exposure to COVID-19; Z79.52 Long term (current) use of systemic steroids; Z79.899 Other long term (current) drug therapy; Z87.891 Personal history of nicotine dependence
CPT/HCPCS: 32551; 36415; 71045; 80053; 85025; 87150; 87635; 99283; 99285; A9270; G0378; J7512; 80048

== ENCOUNTER 2022-05-10 10:50 | Outpatient (CLI) | payer MEDICARE ==
--- NOTE | 2022-05-10 12:21 | XRAY Report ---
PROCEDURE: Chest 1 View X-Ray INDICATIONS: Follow up for resolution of pneumothorax TECHNIQUE: One view of the chest was acquired. COMPARISON: Multiple prior studies including the most recent from 05/09/2022 FINDINGS: Surgical changes and devices: None. Lungs and pleura: Small apical right pneumothorax, similar size compared to the prior study. No evid ence of mediastinal shift. Stable moderate to large right pleural effusion, also without change. Left lung remains fully aerated. Mediastinum: Stable cardiomediastinal contour. No central vascular congestion. Bones and chest wall: Stable quantity of moderate subcutaneous emphysema in the right axillary regio n extending up the right neck. No acute osseous changes. IMPRESSION: 1. Stable size of small right apical pneumothorax. 2. Stable size of moderate to large residual right pleural effusion. 3. Stable quantity of subcutaneous emphysema. Reviewed by: Mali Parmar MD on 05/10/2022 12:19 PM PDT Approved by: Mali Parmar MD on 05/10/2022 12:19 PM PDT Station ID: [id number]
== END 2022-05-10 10:51 | disposition home or self-care (01) ==
LOC: DI 10:50
PROVIDERS: ATTEND Internal Medicine
DX: J93.9 Pneumothorax, unspecified (principal); J90 Pleural effusion, not elsewhere classified; T79.7XXA Traumatic subcutaneous emphysema, initial encounter

== ENCOUNTER 2022-05-30 12:25 | Emergency (ER) | payer OTHER ==
[2022-05-30 13:29] LABS: BASOPHILS % (AUTO) 0.3 %; EOSINOPHILS % (AUTO) 0.5 %; HCT - HEMATOCRIT 33.5 % (42.0-52.0); HGB - HEMOGLOBIN 10.7 g/dL (14.0-18.0); LYMPHOCYTES # (AUTO) 0.8 10^3/uL (1.5-3.5); LYMPHOCYTES % (AUTO) 12.8 %; MEAN CORPUSCULAR HEMOGLOBIN 31.6 pg (27.0-31.0); MEAN CORPUSCULAR HGB CONC 31.9 g/dL (32.0-36.0); MEAN CORPUSCULAR VOLUME 98.8 fL (80.0-94.0); MONOCYTES # (AUTO) 0.8 10^3/uL (0.0-1.0); MONOCYTES % (AUTO) 12.2 %; NEUTROPHILS # (AUTO) 4.8 10^3/uL (1.5-6.6); PLT - PLATELET COUNT 396 10^3/uL (130-450); RED BLOOD COUNT 3.39 10^6/uL (4.70-6.10); RED CELL DISTRIBUTION WIDTH 14.2 % (12.0-15.0); WHITE BLOOD COUNT 6.5 x10^3/uL (4.8-10.8)
[2022-05-30 13:36] LABS: INR 1.2 (0.8-1.2); PT - PROTHROMBIN TIME 13.2 secs (9.9-12.6)
[2022-05-30 13:38] LABS: CALCIUM 8.9 mg/dL (8.5-10.3); CREATININE 1.3 mg/dL (0.6-1.2); POTASSIUM 4.5 mmol/L (3.5-5.0)
--- NOTE | 2022-05-30 14:33 | XRAY Report ---
PROCEDURE: Chest 2 View X-Ray INDICATIONS: dyspnea TECHNIQUE: 2 views of the chest were acquired. COMPARISON: 07/10/2021 FINDINGS: Surgical changes and devices: None. Lungs and pleura: There is complete opacification of the right hemithorax with mediastinal deviation to the left. The left lung is grossly clear. Mediastinum: Mediastinal contours are normal. Heart size is normal. Bones and chest wall: No suspicious bony abnormalities. Soft tissues appear unremarkable. IMPRESSION: Findings are consistent with a massive pleural effusion and underlying atelectasis versus consolidati on. Findings are consistent with either an empyema or malignant effusion, as there is contralateral m ediastinal shift. Reviewed by: Amadou Hinton MD on 05/30/2022 2:32 PM PST Approved by: Amadou Hinton MD on 05/30/2022 2:32 PM PST Station ID: [id number]
[2022-05-30] MEDS ORDERED: LIDOCAINE 1%-EPI 1:100000 20 ML MDV SUBQ STA (15:57)
--- NOTE | 2022-05-30 15:57 | ED Physician Documentation ---
PD HPI DYSPNEA - Stated complaint Stated Complaint: SOA - Chief complaint Chief Complaint: Resp - History obtained from History obtained from: Patient - Additional information Additional information: 76-year-old gentleman with history of multiple myeloma and CLL has a recurrent right pleural effusion of unclear etiology. He had it drained in early May. Cytology was negative. The procedure was complicated by a postprocedural pneumothorax and did have a chest tube as well. Over the last week has become progressively short of breath again and now cannot walk across the room without symptomatology. He denies fever or cough. Review of Systems Ten Systems: 10 systems reviewed and negative Constitutional: denies: Fever, Chills Throat: reports: Reviewed and negative Cardiac: reports: Reviewed and negative PD PAST MEDICAL HISTORY - Past Medical History Cardiovascular: None Respiratory: None Neuro: None Endocrine/Autoimmune: None GI: None : None Psych: None Musculoskeletal: None Derm: None - Past Surgical History Past Surgical History: No Derm: Other - Present Medications Home Medications: Ambulatory Orders Medication Instructions Recorded Confirmed Cholecalciferol (Vitamin D3) 25 mcg PO DAILY 07/29/19 05/04/22 [Vitamin D3] Cyanocobalamin (Vitamin B-12) 1,000 mcg PO DAILY 07/29/19 05/04/22 [Vitamin B-12] Saw [place] 450 mg PO DAILY 07/29/19 05/04/22 traMADol [Ultram] 50 mg PO TID PRN 07/29/19 05/04/22 Acyclovir [Zovirax] 400 mg PO BID 30 Days #60 tablet 09/06/20 05/04/22 Lenalidomide [Revlimid] 10 mg PO DAILY 05/03/21 05/04/22 Sulfamethox/Trimeth 800/160 1 tablet PO UD 90 Days #36 tablet 08/14/21 05/04/22 [Bactrim Ds] Albuterol Sulf [Ventolin Hfa 1 - 2 puffs INH Q4HR PRN #18 gm 05/02/22 05/04/22 Inhaler] Azithromycin [Zithromax] 250 mg PO UD 5 Days #6 tablet 05/02/22 05/04/22 predniSONE [Prednisone 21-TAB dose 10 mg PO UD #1 each 05/02/22 05/04/22 pack] Naproxen 250 mg PO TID PRN 05/04/22 05/04/22 metFORMIN [Glucophage] 500 mg PO BIDWM 05/04/22 05/04/22 - Allergies Allergies/Adverse Reactions: Allergies Allergy/AdvReac Type Severity Reaction Status Date / Time No Known Drug Allergies Allergy Verified 05/03/22 16:11 - Social History Does the pt smoke?: Yes Smoking Status: Former smoker Does the pt drink ETOH?: Yes Does the pt have substance abuse?: No - Immunizations Immunizations are current?: No - POLST Patient has POLST: No PD ED PE NORMAL - Vitals Vital signs reviewed: Yes - General General: Alert and oriented X 3, No acute distress - HEENT HEENT: PERRL, EOMI - Neck Neck: Supple, no meningeal sign, No bony TTP - Cardiac Cardiac: RRR, No murmur - Respiratory Respiratory: Other (Absent right lung sounds except at the very apex where he has diminished right lung sounds.) - Extremities Extremities: Other (Trace pitting pedal edema) - Neuro Neuro: Alert and oriented X 3, Normal speech Results - Vitals Vitals: Vital Signs - 24 hr 05/30/22 05/30/22 12:57 15:40 Temperature 36.1 C L 36.5 C Heart Rate 102 H 102 H Respiratory 20 20 Rate Blood Pressure 132/74 H 132/74 H O2 Saturation 96 96 Oxygen O2 Source Room air - EKG (time done) 1308 Rate: Rate (enter#) (103) Rhythm: Sinus tachycardia [place]: Normal QRS: Normal Ischemia: Normal ST segments - Labs Labs: Laboratory Tests 05/30/22 05/30/22 05/30/22 13:22 13:22 13:22 WBC 6.5 RBC 3.39 L Hgb 10.7 L Hct 33.5 L MCV 98.8 H MCH 31.6 H MCHC 31.9 L RDW 14.2 Plt Count 396 MPV 8.0 Neut # (Auto) 4.8 Lymph # (Auto) 0.8 L [place] # (Auto) 0.8 Eos # (Auto) 0.0 Baso # (Auto) 0.0 Absolute Nucleated RBC 0.00 Nucleated RBC % 0.0 PT 13.2 H INR 1.2 Sodium 135 Potassium 4.5 Chloride 96 L Carbon Dioxide 30 Anion Gap 9.0 BUN 20 Creatinine 1.3 H Estimated GFR (MDRD) 54 L Glucose 117 H Calcium 8.9 Fluid Source Fluid Color Fluid Clarity Fluid WBC Fluid RBC 05/30/22 16:20 WBC RBC Hgb Hct MCV MCH MCHC RDW Plt Count MPV Neut # (Auto) Lymph # (Auto) [place] # (Auto) Eos # (Auto) Baso # (Auto) Absolute Nucleated RBC Nucleated RBC % PT INR Sodium Potassium Chloride Carbon Dioxide Anion Gap BUN Creatinine Estimated GFR (MDRD) Glucose Calcium Fluid Source PLEURAL Fluid Color BLOODY Fluid Clarity CLOUDY Fluid WBC 365 Fluid RBC [id number] Procedures - Thoracentesis Preparation: Consent obtained (Discussed risks and benefits, especially risks of pneumothorax given his history of same), Sterile prep and drape, Sitting Technique: Catheter over needle, Right, Ultrasound used Fluid: Bloody (But not opaque), Sent for cell count, Sent for culture, Other (Not sent for cytology as negative cytology on the last 1.) PD MEDICAL DECISION MAKING - ED course ED course: 76-year-old gentleman with the above history presents with a recurrent pleural effusion on the right of unclear etiology. He was feeling much better respiratory ramos after the thoracentesis of 2.3 L, and there was no evidence of postprocedural pneumothorax on chest x-ray. Departure - Departure Disposition: 01 Home, Self Care Clinical Impression: Pleural effusion Condition: Good Record reviewed to determine appropriate education?: Yes Instructions: ED Effusion Pleural Comments: Follow-up with Dr. Barfield next week as scheduled. Return for new or worsening symptoms. Let him know that we were able to drain 2.3 L of your pleural effusion with improvement in your symptoms, more work needs to be done to figure out why this keeps happening.
[2022-05-30 16:37] LABS: BF CLARITY CLOUDY; BF COLOR BLOODY; BF SOURCE PLEURAL; CC,BF RBC 94000 /mm^3; CC,BF WBC 365 /mm^3
--- NOTE | 2022-05-30 16:50 | XRAY Report ---
PROCEDURE: Post Thoracentesis 1V CXR INDICATIONS: post thoracentesis TECHNIQUE: One view of the chest was acquired. COMPARISON: CXR earlier today, 05/10/2022. FINDINGS: Surgical changes and devices: None. Lungs and pleura: No pneumothorax demonstrated. There is aeration in the right hemithorax now seen. Large right pleural effusion. No left pleural effusion. Left lung is clear. Mediastinum: Decreased leftward mediastinal shift.. Heart size is obscured. Bones and chest wall: No suspicious bony lesions. Overlying soft tissues appear unremarkable. IMPRESSION: No pneumothorax post right thoracentesis. Large right pleural effusion. Decreased mediastinal shift. Reviewed by: Demarcus Villarreal MD on 05/30/2022 4:49 PM PST Approved by: Demarcus Villarreal MD on 05/30/2022 4:49 PM PST Station ID: [id number]
[2022-05-30 17:05] VITALS: BP 143/82
[2022-05-30 17:13] LABS: LYMPHOCYTES %,BODY FLUID 46 %; MACROPHAGES %,BODY FLUID 18 %; NEUTROPHILS %, BF 21 %
[2022-05-30 17:14] LABS: BASOPHILS %,BODY FLUID 2 %; EOSINOPHILS %,BODY FLUID 7 %; MESOTHELIAL %, BF 6 %
== END 2022-05-30 17:10 | disposition home or self-care (01) ==
LOC: ED 12:25
DX: Z87.891 Personal history of nicotine dependence (principal); J90 Pleural effusion, not elsewhere classified
CPT/HCPCS: 32554; 36415; 80048; 85025; 85610; 87070; 87205; 89051; 93005; 99282

== ENCOUNTER 2022-06-08 10:32 | Inpatient (IN) | payer OTHER ==
[2022-06-08 11:16] LABS: BASOPHILS % (AUTO) 0.2 %; EOSINOPHILS % (AUTO) 0.1 %; HCT - HEMATOCRIT 33.1 % (42.0-52.0); HGB - HEMOGLOBIN 10.4 g/dL (14.0-18.0); LYMPHOCYTES # (AUTO) 0.6 10^3/uL (1.5-3.5); LYMPHOCYTES % (AUTO) 7.5 %; MEAN CORPUSCULAR HEMOGLOBIN 30.7 pg (27.0-31.0); MEAN CORPUSCULAR HGB CONC 31.4 g/dL (32.0-36.0); MEAN CORPUSCULAR VOLUME 97.6 fL (80.0-94.0); MEAN PLATELET VOLUME 8.4 fL (7.4-11.4); MONOCYTES # (AUTO) 0.9 10^3/uL (0.0-1.0); MONOCYTES % (AUTO) 11.2 %; NEUTROPHILS # (AUTO) 6.7 10^3/uL (1.5-6.6); NEUTROPHILS % (AUTO) 80.5 %; PLT - PLATELET COUNT 434 10^3/uL (130-450); RED BLOOD COUNT 3.39 10^6/uL (4.70-6.10); RED CELL DISTRIBUTION WIDTH 14.4 % (12.0-15.0); WHITE BLOOD COUNT 8.4 x10^3/uL (4.8-10.8)
--- NOTE | 2022-06-08 11:25 | XRAY Report ---
PROCEDURE: Chest 1 View X-Ray INDICATIONS: SOA TECHNIQUE: One view of the chest was acquired. COMPARISON: 05/30/2022. FINDINGS: Surgical changes and devices: None. Lungs and pleura: There is moderate to large right pleural effusion slightly decreased compared to p revious study. Left lung remains clear. No gross pneumothorax. Mediastinum: Mediastinal contours appear normal. Heart size is normal. Bones and chest wall: No suspicious bony lesions. Overlying soft tissues appear unremarkable. IMPRESSION: . Persistent moderate to large right pleural effusion slightly decreased since previous study. No wilian ss pneumothorax. Left lung remains clear. Reviewed by: Dion Curry MD on 06/08/2022 11:24 AM PST Approved by: Dion Curry MD on 06/08/2022 11:24 AM PST Station ID: [id number]
[2022-06-08 11:31] LABS: ALBUMIN 2.5 g/dL (3.2-5.5); ALBUMIN/GLOBULIN RATIO 0.5 (1.0-2.2); BILIRUBIN,TOTAL 0.4 mg/dL (0.2-1.0); CALCIUM 8.7 mg/dL (8.5-10.3); CREATININE 1.1 mg/dL (0.6-1.2); POTASSIUM 4.1 mmol/L (3.5-5.0); TOTAL PROTEIN 7.4 g/dL (6.7-8.2)
[2022-06-08 11:45] LABS: INR 1.6 (0.8-1.2); PT - PROTHROMBIN TIME 17.1 secs (9.9-12.6)
--- NOTE | 2022-06-08 13:00 | ED Physician Documentation ---
PD HPI DYSPNEA - Stated complaint Stated Complaint: FLUID ON CHEST - Chief complaint Chief Complaint: Resp - History obtained from History obtained from: Patient - Additional information Additional information: Patient is a 76-year-old male with a history of CLL And multiple myeloma presenting for evaluation of shortness of breath. He has had a recurrent right- sided pleural effusion that has required thoracentesis.He has had 2 this month, most recently 1 week ago. He reports he felt better for 3 to 4 days After the most recent 1 but then he started feeling very short of breath again. He states he is unsure of what the cause of the effusion is as they have ruled out cancer and infection. He does follow with Dr. Barfield. He did not contact Dr. Barfield with his recent symptoms. He does not take a blood thinner but has been using Aleve for back pain.He denies chest pain, fever. Review of Systems Constitutional: denies: Fever Nose: denies: Congestion Cardiac: denies: Chest pain / pressure Respiratory: reports: Dyspnea Neurologic: denies: Headache PD PAST MEDICAL HISTORY - Past Medical History Cardiovascular: None Respiratory: None Neuro: None Endocrine/Autoimmune: None GI: None : None Psych: None Musculoskeletal: None Derm: None - Past Surgical History Past Surgical History: No Derm: Other - Present Medications Home Medications: Ambulatory Orders Medication Instructions Recorded Confirmed Cholecalciferol (Vitamin D3) 25 mcg PO DAILY 07/29/19 05/04/22 [Vitamin D3] Cyanocobalamin (Vitamin B-12) 1,000 mcg PO DAILY 07/29/19 05/04/22 [Vitamin B-12] Saw [place] 450 mg PO DAILY 07/29/19 05/04/22 traMADol [Ultram] 50 mg PO TID PRN 07/29/19 05/04/22 Acyclovir [Zovirax] 400 mg PO BID 30 Days #60 tablet 09/06/20 05/04/22 Lenalidomide [Revlimid] 10 mg PO DAILY 05/03/21 05/04/22 Sulfamethox/Trimeth 800/160 1 tablet PO UD 90 Days #36 tablet 08/14/21 05/04/22 [Bactrim Ds] Albuterol Sulf [Ventolin Hfa 1 - 2 puffs INH Q4HR PRN #18 gm 05/02/22 05/04/22 Inhaler] Azithromycin [Zithromax] 250 mg PO UD 5 Days #6 tablet 05/02/22 05/04/22 predniSONE [Prednisone 21-TAB dose 10 mg PO UD #1 each 05/02/22 05/04/22 pack] Naproxen 250 mg PO TID PRN 05/04/22 05/04/22 metFORMIN [Glucophage] 500 mg PO BIDWM 05/04/22 05/04/22 - Allergies Allergies/Adverse Reactions: Allergies Allergy/AdvReac Type Severity Reaction Status Date / Time No Known Drug Allergies Allergy Verified 06/08/22 10:47 - Social History Does the pt smoke?: Yes Smoking Status: Current every day smoker Does the pt drink ETOH?: Yes Does the pt have substance abuse?: No - Immunizations Immunizations are current?: No - POLST Patient has POLST: No PD ED PE NORMAL - General General: Alert and oriented X 3, No acute distress, Well developed/nourished - HEENT HEENT: Atraumatic - Neck Neck: Supple, no meningeal sign - Cardiac Cardiac: RRR, No murmur - Respiratory Respiratory: No respiratory distress, Other (Absent lung sounds on the right; Bandage in place from most recent thoracentesis with no redness or swelling) - Abdomen Abdomen: Soft, Non tender, Non distended - Extremities Extremities: No calf tenderness / cord, Other (Trace pitting edema bilaterally) - Neuro Neuro: Alert and oriented X 3, Normal speech Results - Vitals Vitals: Vital Signs - 24 hr 06/08/22 06/08/22 06/08/22 10:39 11:22 13:00 Temperature 36.5 C Heart Rate 105 H 83 95 Respiratory 24 22 22 Rate Blood Pressure 140/73 H 140/72 H 132/78 H O2 Saturation 99 97 97 If not protocol : Oxygen Flow, liters/minute 06/08/22 06/08/22 13:26 17:00 Temperature Heart Rate 80 112 H Respiratory 13 25 H Rate Blood Pressure 96/78 141/83 H O2 Saturation 100 100 If not protocol 2 : Oxygen Flow, liters/minute Oxygen O2 Source Nasal cannula - EKG (time done) 1322 Rate: Rate (enter#) (95) Rhythm: NSR Intervals: No: Prolonged QT Ischemia: No: ST elevation c/w ischemia - Labs Labs: Laboratory Tests 06/08/22 06/08/22 06/08/22 11:11 11:11 11:11 WBC 8.4 RBC 3.39 L Hgb 10.4 L Hct 33.1 L MCV 97.6 H MCH 30.7 MCHC 31.4 L RDW 14.4 Plt Count 434 MPV 8.4 Neut # (Auto) 6.7 H Lymph # (Auto) 0.6 L [place] # (Auto) 0.9 Eos # (Auto) 0.0 Baso # (Auto) 0.0 Absolute Nucleated RBC 0.00 Nucleated RBC % 0.0 PT 17.1 H INR 1.6 H Sodium 135 Potassium 4.1 Chloride 97 L Carbon Dioxide 28 Anion Gap 10.0 BUN 18 Creatinine 1.1 Estimated GFR (MDRD) 65 L Glucose 127 H Calcium 8.7 Total Bilirubin 0.4 AST 17 ALT 16 Alkaline Phosphatase 88 Total Protein 7.4 Albumin 2.5 L Globulin 4.8 H Albumin/Globulin Ratio 0.5 L SARS-CoV-2 (PCR) 06/08/22 19:18 WBC RBC Hgb Hct MCV MCH MCHC RDW Plt Count MPV Neut # (Auto) Lymph # (Auto) [place] # (Auto) Eos # (Auto) Baso # (Auto) Absolute Nucleated RBC Nucleated RBC % PT INR Sodium Potassium Chloride Carbon Dioxide Anion Gap BUN Creatinine Estimated GFR (MDRD) Glucose Calcium Total Bilirubin AST ALT Alkaline Phosphatase Total Protein Albumin Globulin Albumin/Globulin Ratio SARS-CoV-2 (PCR) NOT DETECTED Procedures - Chest Tube (location) right 4th anterior axillary line Chest tube preparation: Consent obtained, Time out completed, Sterile prep and drape Chest tube location: Right, Anterior axillary line Chest tube anesthesia: Lidocaine Chest tube size: 8 Chest tube return: Other (Dark appearing pleural fluid easily aspirated and sent for cytology.) Chest tube after care: Sutured, Confirmed with xray, Pt tolerated well, Other (Unable to find adapter for pigtail to suction cannister; d/w Dr. Yang; able to find a tubing that would work after some time and able to hook to suction/water seal with bubbles visualized) PD MEDICAL DECISION MAKING - ED course Complexity details: reviewed results, re-evaluated patient, d/w patient ED course: Patient presenting for evaluation of shortness of breath. Has recurrent right pleural effusions. Has had previous complications from thoracentesis. His INR is slightly elevated. Discussed with IR who agrees to perform procedure with ultrasound. I did discuss with oncology given frequent presentations x 1 month. D/W Dr. Lozano. Requests to repeat cytology and also asks for mixing study due to elevated INR. Will pass on message to Dr. Barfield who will follow up on these labs. Post procedure pt reports feeling better but unfortunately has a pneumothorax. I placed a pigtail catheter without issue other than delay in finding appropriate connector for tubing. I have sent pleural fluid for cytology. I was told that [facility] no longer does mixing studies in house. Will attempt to order as a send out. D/W Dr. Yang who has seen the patient in the ER and will admit for further management. - Critical Care Time(min): 31 Time Includes: Direct patient care, Reassess patient, Coordinate care, Medical consult Procedures excluded from critical care time: Chest tube Departure - Departure Disposition: 66 [facility] DC/Xfer Clinical Impression: Postprocedural pneumothorax, Recurrent pleural effusion Condition: Good
[2022-06-08] MEDS ORDERED: lidocaine 1% 20 ML MDV ONE (13:59)
[2022-06-08] MEDS ORDERED: LIDOCAINE 1%-EPI 1:100000 20 ML MDV SUBQ STA (16:17)
[2022-06-08] MEDS ORDERED: fentaNYL 100 MCG/2 ML VIAL IVP STA (16:18)
[2022-06-08] MEDS ORDERED: ONDANSETRON 4 MG/2 ML VIAL IVP STA (16:18)
--- NOTE | 2022-06-08 16:22 | XRAY Report ---
PROCEDURE: Post Thoracentesis 1V CXR INDICATIONS: post procedure TECHNIQUE: One view of the chest was acquired. COMPARISON: None. FINDINGS: Surgical changes and devices: None. Lungs and pleura: Right pleural effusion. Poorly visualized lung markings. Mediastinum: Mediastinal contours appear normal. Heart size is normal. Bones and chest wall: No suspicious bony lesions. Overlying soft tissues appear unremarkable. IMPRESSION: Poorly visualized lung markings suspicious for pneumothorax. Lateral decubitus is recommended. Reviewed by: Jade Enciso MD on 06/08/2022 4:20 PM PST Approved by: Jade Enciso MD on 06/08/2022 4:20 PM PST Station ID: [id number]
--- NOTE | 2022-06-08 16:23 | Ultrasound Report ---
PROCEDURE: Thoracentesis Puncture INDICATIONS: recurrent pleural effusion TECHNIQUE: The indications, alternatives, benefits, risks, and complications of the procedure were explained to the patient. Written informed consent was obtained and placed in the chart. The chest was examined sonographically, and an appropriate site was chosen for thoracentesis. The skin was prepared and sebastian ped in the usual sterile fashion, and 1% lidocaine was infiltrated from the skin down through the ple ural surface. A 19-gauge catheter-covered needle was then introduced into the pleural space, the cat heter was advanced and the needle was withdrawn, and thereafter pleural fluid was aspirated. The cat heter was then removed and a dressing was applied. COMPARISON: None. FINDINGS: Access site: Right hemithorax. Needle: One-Step centesis catheter with introducer needle. Fluid volume and description: 1100 cc bloody Fluid sent for diagnostic testing: No Medications: 1% lidocaine for local anaesthesia. Complications: None; post-procedural chest radiograph is pending to assess for pneumothorax. IMPRESSION: Successful ultrasound-guided thoracentesis. Reviewed by: Jade Enciso MD on 06/08/2022 4:22 PM PST Approved by: Jade Enciso MD on 06/08/2022 4:22 PM PST Station ID: [id number]
--- NOTE | 2022-06-08 16:23 | XRAY Report ---
PROCEDURE: Post Thoracentesis 1V CXR INDICATIONS: post procedure TECHNIQUE: One view of the chest was acquired. COMPARISON: None. FINDINGS: Surgical changes and devices: None. Lungs and pleura: History right pleural effusion. No lateral lung markings. Mediastinum: Mediastinal contours appear normal. Heart size is normal. Bones and chest wall: No suspicious bony lesions. Overlying soft tissues appear unremarkable. IMPRESSION: Right pneumothorax. The above findings were discussed with Dr. [address] at 4:00 PM on 06/08/22 Reviewed by: Jade Enciso MD on 06/08/2022 4:21 PM PST Approved by: Jade Enciso MD on 06/08/2022 4:21 PM PST Station ID: [id number]
[2022-06-08] MEDS ORDERED: lidocaine 1% 20 ML MDV SUBQ ONE (16:29)
--- NOTE | 2022-06-08 18:40 | XRAY Report ---
PROCEDURE: Chest 1 View X-Ray INDICATIONS: post pigtail TECHNIQUE: One view of the chest was acquired. COMPARISON: Chest radiographs from earlier the same day. FINDINGS: Surgical changes and devices: Interval placement of a right-sided chest tube. Lungs and pleura: Large right hydropneumothorax is again seen with atelectasis of the majority of th e right lung. Left lung is clear. Mediastinum: Mediastinal contours appear normal. Heart size is normal. Bones and chest wall: No suspicious bony lesions. Overlying soft tissues appear unremarkable. IMPRESSION: Status post placement of a right-sided pleural drainage catheter. Large right hydropneumothorax is re demonstrated. Reviewed by: Shaun Mustafa MD on 06/08/2022 6:39 PM PST Approved by: Shaun Mustafa MD on 06/08/2022 6:39 PM PST Station ID: [id number]
[2022-06-08] MEDS ORDERED: SODIUM CHLORIDE FLUSH 0.9% 10 ML SYRINGE IVP PRN (19:03)
[2022-06-08] MEDS ORDERED: ALBUTEROL NEB 2.5 MG/3 ML INH PRN (19:10)
--- NOTE | 2022-06-08 19:12 | XRAY Report ---
PROCEDURE: Chest 1 View X-Ray INDICATIONS: tube to suction TECHNIQUE: One view of the chest was acquired. COMPARISON: Multiple radiographs from earlier the same day. FINDINGS: Surgical changes and devices: Stable right-sided pigtail pleural drainage catheter. Lungs and pleura: Moderate to large right hydropneumothorax has minimally decreased in size when com pared to the exam from approximately 1 hour prior. Left lung is clear. Mediastinum: Mediastinal contours appear normal. Heart size is normal. Bones and chest wall: No suspicious bony lesions. Overlying soft tissues appear unremarkable. IMPRESSION: Stable pleural drainage catheter and minimally decreased size of a right hydropneumothora x. Reviewed by: Shaun Mustafa MD on 06/08/2022 7:11 PM PST Approved by: Shaun Mustafa MD on 06/08/2022 7:11 PM PST Station ID: [id number]
--- NOTE | 2022-06-08 19:19 | HISTORY & PHYSICAL EXAMINATION ---
Chief Complaint - Chief Complaint Chief Complaint: pneumothorax after thoracentesis History of Present Illness - Admitted From Admitted From:: ed - History Obtained From Records Reviewed: yes History obtained from: pt and ED MD Exam Limitations: none - History of Present Illness HPI Comment/Other: recurrent right pleural effusion with recurrent aspiration and recurrent pneumothorax. no distress. work up to date no cancer as a cause History - Past Medical History Cardiovascular: reports: None Respiratory: reports: None Neuro: reports: None Endocrine/Autoimmune: reports: None GI: reports: None : reports: None Psych: reports: None Musculoskeletal: reports: None Derm: reports: None - Past Surgical History Derm: reports: Other - POLST Patient has POLST: No Meds/Allgy - Home Medications Home Medications: Ambulatory Orders Medication Instructions Recorded Confirmed Cholecalciferol (Vitamin D3) 25 mcg PO DAILY 07/29/19 05/04/22 [Vitamin D3] Cyanocobalamin (Vitamin B-12) 1,000 mcg PO DAILY 07/29/19 05/04/22 [Vitamin B-12] Saw [place] 450 mg PO DAILY 07/29/19 05/04/22 traMADol [Ultram] 50 mg PO TID PRN 07/29/19 05/04/22 Acyclovir [Zovirax] 400 mg PO BID 30 Days #60 tablet 09/06/20 05/04/22 Lenalidomide [Revlimid] 10 mg PO DAILY 05/03/21 05/04/22 Sulfamethox/Trimeth 800/160 1 tablet PO UD 90 Days #36 tablet 08/14/21 05/04/22 [Bactrim Ds] Albuterol Sulf [Ventolin Hfa 1 - 2 puffs INH Q4HR PRN #18 gm 05/02/22 05/04/22 Inhaler] Azithromycin [Zithromax] 250 mg PO UD 5 Days #6 tablet 05/02/22 05/04/22 predniSONE [Prednisone 21-TAB dose 10 mg PO UD #1 each 05/02/22 05/04/22 pack] Naproxen 250 mg PO TID PRN 05/04/22 05/04/22 metFORMIN [Glucophage] 500 mg PO BIDWM 05/04/22 05/04/22 - Allergies Allergies/Adverse Reactions: Allergies Allergy/AdvReac Type Severity Reaction Status Date / Time No Known Drug Allergies Allergy Verified 06/08/22 10:47 Review of Systems - Other Findings Other Findings: 10 pt ros as above otherwise unremarkable no respiratory distress Exam - Vital Signs Reviewed Vital Signs: Yes Vital Signs: Vital Signs x48h Pulse Resp BP Pulse Ox O2 Flow Rate 06/08/22 17:00 112 H 25 H 141/83 H 100 2 06/08/22 13:26 80 13 96/78 100 06/08/22 13:00 95 22 132/78 H 97 06/08/22 11:22 83 22 140/72 H 97 - Physical Exam General Appearance: positive: No acute distress, Alert Eyes Bilateral: positive: PERRL Respiratory: positive: No respiratory distress, Other (clear on the left diminished on the right) Cardiovascular: positive: Regular rate & rhythm Abdomen: positive: Non-tender, No distention Neurologic/Psychiatric: positive: Oriented x3 Conclusion/Plan - Problem List (1) Postprocedural pneumothorax Conclusion/Plan: plan admit chest tube has been placed per ED cxr in am and close observation - Lab Results Fish Bones: 06/08/22 11:11 06/08/22 11:11
[2022-06-08] MEDS: ACYCLOVIR 200 MG CAPSULE PO SCH (21:06)
[2022-06-08] MEDS: metFORMIN 500 MG TABLET PO SCH (21:06)
[2022-06-08] MEDS: traMADol 50 MG TABLET PO PRN (21:17)
[2022-06-08] MEDS: ZOLPIDEM 5 MG TABLET PO PRN (21:17)
[2022-06-08] MEDS: ACETAMINOPHEN 325 MG TABLET PO PRN (21:17)
[2022-06-09] MEDS: SODIUM CHLORIDE FLUSH 0.9% 10 ML SYRINGE IVP SCH ×3 (00:02→16:49)
--- NOTE | 2022-06-09 08:42 | XRAY Report ---
PROCEDURE: Chest 1 View X-Ray INDICATIONS: pneumothorax TECHNIQUE: One view of the chest was acquired. COMPARISON: Several priors on 06/08/2022 FINDINGS: Surgical changes and devices: There is a right-sided pleural drain Lungs and pleura: A small to moderate right-sided pneumothorax is seen, which is improved compared t o the 06/08/2022 study. Opacity seen at the right lung base. The left lung appears clear. Mediastinum: Mild to moderate cardiomegaly is seen. Bones and chest wall: No suspicious bony lesions. Age-appropriate degenerative changes are seen. O verlying soft tissues appear unremarkable. IMPRESSION: Right-sided pleural drain placed, with an improving pneumothorax. Opacity is seen at the right lung base. Pleural effusion with atelectasis are considered most likely. Reviewed by: Jose L Damon MD on 06/09/2022 7:41 AM [facility] Approved by: Jose L Damon MD on 06/09/2022 7:41 AM [facility] Station ID: [id number]
[2022-06-09] MEDS: SULFAMETH/TRIMETH DS 800/160 MG TABLET PO SCH (09:53)
[2022-06-09] MEDS: AZITHROMYCIN 250 MG TABLET PO SCH (09:54)
[2022-06-09] MEDS: metFORMIN 500 MG TABLET PO SCH ×2 (09:54→21:15)
[2022-06-09] MEDS: ACYCLOVIR 200 MG CAPSULE PO SCH ×2 (10:15→21:15)
[2022-06-09] MEDS: traMADol 50 MG TABLET PO PRN (10:15)
--- NOTE | 2022-06-09 11:26 | PROVIDER PROGRESS NOTE ---
Subjective - Subjective Pt reports feeling: Improved Subjective: appears well Objective - Vital Signs/Intake & Output Reviewed Vital Signs: Yes Vital Signs: Vital Signs x48h Temp Pulse Resp BP Pulse Ox O2 Flow Rate 06/09/22 11:04 116 H 26 H 116/78 98 2 06/09/22 10:00 110 H 20 121/60 98 2 06/09/22 08:07 36.5 C 113 H 24 154/104 H 100 06/09/22 06:55 97 24 97 06/09/22 05:44 87 20 125/71 99 06/09/22 04:15 36.9 C 95 24 117/71 98 2 Intake & Output: Intake & Output 06/06/22 06/07/22 06/08/22 06/09/22 23:59 23:59 23:59 23:59 Output Total 400 1100 Balance -400 -1100 - Objective General Appearance: positive: No acute distress, Alert Respiratory: positive: No respiratory distress, Other (chest tube is small and has pulled back. with sterile technique the tube is advanced and secured.) Abdomen: positive: Non-tender, No distention Neurologic/Psychiatric: positive: Oriented x3 - Lab Results Fish Bones: 06/08/22 11:11 06/08/22 11:11 Other Labs: Lab Results x24hrs 06/08/22 06/08/22 06/08/22 Range/Units 19:18 11:11 11:11 PT 17.1 H (9.9-12.6) secs INR 1.6 H (0.8-1.2) Sodium 135 (135-145) mmol/L Potassium 4.1 (3.5-5.0) mmol/L Chloride 97 L (101-111) mmol/L Carbon Dioxide 28 (21-32) mmol/L Anion Gap 10.0 (6-13) BUN 18 (6-20) mg/dL Creatinine 1.1 (0.6-1.2) mg/dL Estimated GFR (MDRD) 65 L (>89) Glucose 127 H (70-100) mg/dL Calcium 8.7 (8.5-10.3) mg/dL Total Bilirubin 0.4 (0.2-1.0) mg/dL AST 17 (10-42) IU/L ALT 16 (10-60) IU/L Alkaline Phosphatase 88 (42-121) IU/L Total Protein 7.4 (6.7-8.2) g/dL Albumin 2.5 L (3.2-5.5) g/dL Globulin 4.8 H (2.1-4.2) g/dL Albumin/Globulin Ratio 0.5 L (1.0-2.2) SARS-CoV-2 (PCR) NOT DETECTED - Diagnostic Imaging Diagnostic Imaging Results: positive: Read independently Assessment/Plan - Problem List (1) Postprocedural pneumothorax Impression: recurrent right pleural effusion and pneumothorax after aspiration. he has a small chest tube. it is advanced with sterile technique. he strongly does not want a larger tube placed at this time plan observation. recheck cxr in am. after tube was advanced air and several hundred ml serosanguinous fluid came out
[2022-06-09] MEDS: SENNA 8.6 MG TABLET PO SCH (18:52)
[2022-06-09] MEDS: DOCUSATE SODIUM 250 MG CAPSULE PO SCH (18:52)
[2022-06-10] MEDS: SODIUM CHLORIDE FLUSH 0.9% 10 ML SYRINGE IVP SCH ×3 (00:54→16:35)
[2022-06-10] MEDS: traMADol 50 MG TABLET PO PRN ×2 (02:22→09:03)
--- NOTE | 2022-06-10 08:49 | XRAY Report ---
PROCEDURE: Chest 1 View X-Ray INDICATIONS: follow up effusion and ptx TECHNIQUE: One view of the chest was acquired. COMPARISON: None. FINDINGS: Surgical changes and devices: A right-sided pleural drain is again seen in stable position. Lungs and pleura: There is a right-sided pneumothorax, which is smaller in size on the current study than on the prior. There is also improved right-sided pleural effusion. Mediastinum: The aorta is prominent and tortuous. The cardiac contours are within normal limits. Bones and chest wall: No suspicious bony lesions. Overlying soft tissues appear unremarkable. IMPRESSION: Improving right-sided pneumothorax and pleural effusion. Right-sided pleural drain seen in place. Reviewed by: Jose L Damon MD on 06/10/2022 7:48 AM [facility] Approved by: Jose L Damon MD on 06/10/2022 7:48 AM [facility] Station ID: [id number]
[2022-06-10] MEDS ORDERED: polyethylene glycoL 3350 17 GM PACKET PO SCH (09:00)
[2022-06-10] MEDS: SENNA 8.6 MG TABLET PO SCH (09:02)
[2022-06-10] MEDS: DOCUSATE SODIUM 250 MG CAPSULE PO SCH (09:03)
[2022-06-10] MEDS: SULFAMETH/TRIMETH DS 800/160 MG TABLET PO SCH (09:03)
[2022-06-10] MEDS: metFORMIN 500 MG TABLET PO SCH ×2 (09:03→21:48)
[2022-06-10] MEDS: AZITHROMYCIN 250 MG TABLET PO SCH (09:03)
[2022-06-10] MEDS: ACYCLOVIR 200 MG CAPSULE PO SCH ×2 (09:03→21:48)
--- NOTE | 2022-06-10 10:12 | PROVIDER PROGRESS NOTE ---
Subjective - Prog Note Date Prog Note Date: 06/10/22 Prog Note Time: 10:09 - Subjective Pt reports feeling: No change Subjective: Breathing ok. Patient states he is tolerating diet no n/v. He did not sleep well overnight, 2/2 pain. Objective - Vital Signs/Intake & Output Reviewed Vital Signs: Yes Vital Signs: Vital Signs x48h Temp Pulse Resp BP Pulse Ox 06/10/22 07:30 36.8 C 55 L 16 129/53 L 97 Intake & Output: Intake & Output 06/07/22 06/08/22 06/09/22 06/10/22 23:59 23:59 23:59 23:59 Intake Total 940 240 Output Total 400 8761 400 Balance -400 -6723 -160 - Objective General Appearance: positive: No acute distress, Alert Eyes Bilateral: positive: Normal inspection, PERRL, EOMI ENT: positive: ENT inspection nml, Pharynx nml Neck: positive: Nml inspection, Thyroid nml, Trachea midline Respiratory: positive: No respiratory distress, Other (decreased breath sounds on right, no wheezes or ronchi. CT dressing replaced to obtain occlusive dressing.) Cardiovascular: positive: Regular rate & rhythm Abdomen: positive: Non-tender, No distention Skin: positive: Color nml, No rash - Lab Results Fish Bones: 06/08/22 11:11 06/08/22 11:11 Other Labs: Lab Results x24hrs 06/08/22 Range/Units 21:15 POC Whole Bld Glucose 138 H (70 - 100) mg/dL - Diagnostic Imaging Diagnostic Imaging Results: positive: Final report reviewed, Read independently Diagnostic Imaging Comments: I personally reviewed the image and report from this study. 50% PTX today, improving slowly. Marked improvement in effusion since yesterday. Assessment/Plan - Problem List (1) Postprocedural pneumothorax Impression: PTX slowly improving on CXR. - pigtail to remain to suction today, suction increased to -[id number]. - repeat CXR in AM - patient had slow resolution of PTX previously as well. - Patient would benefit from CT surgery consult, likely VATS candidate given two recent PTX and recurrent effusion.
[2022-06-10] MEDS: HYDROcod/ACETAM 5/325 MG TABLET PO PRN ×2 (11:54→21:52)
[2022-06-10] MEDS: ACETAMINOPHEN 325 MG TABLET PO PRN (11:55)
[2022-06-10] MEDS: polyethylene glycoL 3350 17 GM PACKET PO SCH (21:48)
[2022-06-11] MEDS: SODIUM CHLORIDE FLUSH 0.9% 10 ML SYRINGE IVP SCH ×3 (01:34→17:25)
[2022-06-11] MEDS: HYDROcod/ACETAM 5/325 MG TABLET PO PRN ×4 (05:57→22:03)
--- NOTE | 2022-06-11 07:36 | PROVIDER PROGRESS NOTE ---
Subjective - Prog Note Date Prog Note Date: 06/11/22 Prog Note Time: 07:32 - Subjective Pt reports feeling: Improved Subjective: Patient feels his breathing is improved from yesterday. Notes persistent "bubbling" from [facility]. No BM. Poor appetite. He did sleep better last night. Objective - Vital Signs/Intake & Output Vital Signs: Vital Signs x48h Temp Pulse Resp BP Pulse Ox 06/11/22 00:00 36.7 C 102 H 18 123/66 96 Intake & Output: Intake & Output 06/08/22 06/09/22 06/10/22 06/11/22 23:59 23:59 23:59 23:59 Intake Total 940 720 Output Total 400 1555 800 380 Balance -400 -1135 -80 -380 - Lab Results Fish Bones: 06/08/22 11:11 06/08/22 11:11 Assessment/Plan - Problem List (1) Postprocedural pneumothorax Impression: Persistent air leak despite increased suction, PTX is stable to slightly smaller today. - pain controlled - patient refusing larger tube. He may need transfer for further discussion of VATS if he is not improving in the next day or two. (2) Constipation due to opioid therapy Impression: - on BID miralax, colace, bowel protocol - tolerating diet, though not very hungry
[2022-06-11] MEDS: polyethylene glycoL 3350 17 GM PACKET PO SCH ×2 (08:28→22:01)
[2022-06-11] MEDS: ACYCLOVIR 200 MG CAPSULE PO SCH ×2 (08:29→22:00)
[2022-06-11] MEDS: SULFAMETH/TRIMETH DS 800/160 MG TABLET PO SCH (08:29)
[2022-06-11] MEDS: DOCUSATE SODIUM 250 MG CAPSULE PO SCH ×3 (08:29→22:01)
[2022-06-11] MEDS: metFORMIN 500 MG TABLET PO SCH ×2 (08:29→22:01)
[2022-06-11] MEDS: AZITHROMYCIN 250 MG TABLET PO SCH (08:29)
--- NOTE | 2022-06-11 08:53 | XRAY Report ---
PROCEDURE: Chest 1 View X-Ray INDICATIONS: PTX TECHNIQUE: One view of the chest was acquired. COMPARISON: 06/10/2022 FINDINGS: Again noted is a small bore right-sided chest tube in unchanged position. Again there is a moderate s ized right pneumothorax which appears stable from prior examination. Areas of consolidation involving the patient's right lung are unchanged. Left lung is clear. Heart and mediastinal contours appear within normal limits. Pulmonary vascularity is normal. There may be a small right pleural effusion present. IMPRESSION: 1. Stable appearance of right-sided chest tube and moderate-sized right pneumothorax. 2. Stable consolidation involving the patient's right lung. 3. Question small right pleural effusion. Reviewed by: Rogelio Bennett MD on 06/11/2022 8:52 AM PST Approved by: Rogelio Bennett MD on 06/11/2022 8:52 AM PST Station ID: [id number]
[2022-06-11] MEDS: SENNA 8.6 MG TABLET PO SCH ×3 (11:11→22:05)
[2022-06-11] MEDS: ZOLPIDEM 5 MG TABLET PO PRN (22:10)
[2022-06-12] MEDS: SODIUM CHLORIDE FLUSH 0.9% 10 ML SYRINGE IVP SCH ×3 (00:38→15:50)
[2022-06-12] MEDS: HYDROcod/ACETAM 5/325 MG TABLET PO PRN ×4 (07:26→20:11)
[2022-06-12] MEDS: ACYCLOVIR 200 MG CAPSULE PO SCH ×2 (08:40→20:11)
[2022-06-12] MEDS: SULFAMETH/TRIMETH DS 800/160 MG TABLET PO SCH (08:40)
[2022-06-12] MEDS: DOCUSATE SODIUM 250 MG CAPSULE PO SCH ×2 (08:40→20:11)
[2022-06-12] MEDS: MULTIVITAMIN W/MINERALS TABLET PO SCH (08:40)
[2022-06-12] MEDS: polyethylene glycoL 3350 17 GM PACKET PO SCH ×2 (08:41→20:11)
[2022-06-12] MEDS: metFORMIN 500 MG TABLET PO SCH ×2 (08:41→20:11)
[2022-06-12] MEDS: SENNA 8.6 MG TABLET PO SCH ×2 (08:41→20:12)
[2022-06-12] MEDS: AZITHROMYCIN 250 MG TABLET PO SCH (08:41)
--- NOTE | 2022-06-12 10:30 | XRAY Report ---
PROCEDURE: Chest 1 View X-Ray INDICATIONS: Pneumothorax TECHNIQUE: One view of the chest was acquired. COMPARISON: 06/11/2022 FINDINGS: Slight increase in size of right pneumothorax when compared with prior study. Right-sided chest tube is in unchanged position. Areas of consolidation within the right lung are also stable. IMPRESSION: Slight increase in size of right pneumothorax when compared with prior exam. Reviewed by: Link Candelaria MD on 06/12/2022 9:28 AM [facility] Approved by: Link Candelaria MD on 06/12/2022 9:28 AM [facility] Station ID: [id number]
--- NOTE | 2022-06-12 11:12 | PHARMACY PROGRESS NOTE ---
- Best Possible Medication History Admit Date and Time: 06/08/221902 Processed by: Pharmacy Medication History completed: Yes Patient Interview: Pt unable to participate Secondary Source(s): Pharmacy records ([facility] since [facility] didn't know meds) As the person ultimately responsible for medication therapy, providers are able to order a medication from an existing home medication list in [facility] via the "Reconcile Routine" prior to Confirmation of that medication by application support technician. Such practice is discouraged except when the physician, in their clinical judgment, deems that a medical need exists for a medication without regard to previous use.
--- NOTE | 2022-06-12 11:58 | PROVIDER PROGRESS NOTE ---
Subjective - Subjective Pt reports feeling: No change (was feeling better yesterday with easier breathing. today much like he has been for many weeks) Objective - Vital Signs/Intake & Output Reviewed Vital Signs: Yes Vital Signs: Vital Signs x48h Temp Pulse Resp BP Pulse Ox 06/12/22 07:42 36.3 C L 92 16 108/66 100 Intake & Output: Intake & Output 06/09/22 06/10/22 06/11/22 06/12/22 23:59 23:59 23:59 23:59 Intake Total 421 774 1899 100 Output Total 2075 800 1130 385 Balance -1135 -80 140 -285 - Objective General Appearance: positive: No acute distress, Alert Eyes Bilateral: positive: PERRL, EOMI Respiratory: positive: No respiratory distress, Other (chest tube with continu ous air leak.) Abdomen: positive: Non-tender, No distention Neurologic/Psychiatric: positive: Oriented x3 - Lab Results Fish Bones: 06/08/22 11:11 06/08/22 11:11 - Diagnostic Imaging Diagnostic Imaging Results: positive: Read independently Assessment/Plan - Problem List (1) Postprocedural pneumothorax Impression: was slowly improving with small air leak by pleural vac inspection. now appears to have a continuous air leak no distress. he really would like to go home cxr shows right lung more down today. we discussed further treatment is recommended. he has not wanted a larger chest tube. this was suggested days ago. we discussed continuing with the current chest tube is not a good option recommend larger chest tube placement or transfer to a higher level of care facility with thoracic surgery. he has been having difficulties with a right pleural effusion for over 2 months and has developed a pneumothorax after thoracentesis twice now. to date no evidence of malignancy. called placed to [facility] thoracic surgery about an hour ago. waiting to hear. if cannot transfer for more definitive care, plan/ recommendation larger chest tube placement soon.
--- NOTE | 2022-06-12 12:09 | DISCHARGE TRANSFER SUMMARY ---
"Transfer Summary Admit Date: 06/08/22 Transfer Date: 06/12/22 Discharging Provider: abiodun weaver md Code Status: Attempt Resuscitation Discharge Disposition: Transfer Acute Care Hosp Discharge Facility Name: [facility] Transfer to Location: [facility] Dr Daniel Arce, thoracic surgery - DIAGNOSES Admission Diagnoses: recurrent pleural effusion and pneumothorax after aspiration Discharge Diagnoses with Status of Each Condition: transfer in stable condition with chest tube - HPI History of Present Illness: recurring right pleural effusion over the last couple months. negative work up for malignancy. he has had the pleural effusion drained twice with resulting pneumothorax twice. - CONSULTS | PROCEDURES Consultations: Discussed with Dr Andrey Arce, thoracic surgery at [facility]. Procedures: Chest tube placement per ED 06/08/2022 chest tube care - HOSPITAL COURSE Hospital Course: He is failing non operative management of a recurring right pleural effusion and now with persistent pneumothorax Plan transfer to [facility] for definitive care - ALLERGIES Allergies/Adverse Reactions: Allergies Allergy/AdvReac Type Severity Reaction Status Date / Time No Known Drug Allergies Allergy Verified 06/08/22 10:47 - MEDICATIONS Home Medications: Ambulatory Orders Medication Instructions Recorded Confirmed Acyclovir [Zovirax] 400 mg PO BID 30 Days #60 tablet 09/06/20 06/12/22 Sulfamethox/Trimeth 800/160 1 tablet PO UD 90 Days #36 tablet 08/14/21 06/12/22 [Bactrim Ds] metFORMIN [Glucophage] 500 mg PO BIDWM 05/04/22 06/12/22 Albuterol Sulf [Ventolin Hfa 2 puffs INH QID PRN 06/12/22 06/12/22 Inhaler] Ondansetron [Ondansetron Odt] 1 tab PO Q8H PRN 06/12/22 06/12/22 Sildenafil Citrate 1 tab PO DAILY PRN 06/12/22 06/12/22 - PHYSICAL EXAM AT DISCHARGE General Appearance: positive: No acute distress, Alert Eyes Bilateral: positive: PERRL, EOMI ENT: positive: No signs of dehydration Neck: positive: No JVD Abdomen: positive: Non-tender, No distention Neurologic/Psychiatric: positive: Oriented x3 - LABS Result Diagrams: 06/08/22 11:11 06/08/22 11:11 - DIAGNOSTIC IMAGING Diagnostic Imaging Results: Read independently - FOLLOW UP Follow Up: [facility] thoracic surgery"
[2022-06-12 23:16] LABS: B. PARAPERTUSSIS- RESP PCR PAN NOT DETECTED; B. PERTUSSIS- RESP PCR PANEL NOT DETECTED; C. PNEUMONIAE- RESP PCR PANEL NOT DETECTED; CORONAVIRUS 229E-RESP PCR NOT DETECTED; CORONAVIRUS HKU1-RESP PCR NOT DETECTED; CORONAVIRUS NL63-RESP PCR NOT DETECTED; CORONAVIRUS OC43-RESP PCR NOT DETECTED; HUMAN METAPNEUMOVIRUS NOT DETECTED; INFLUENZA A- RESP PCR PANEL NOT DETECTED; INFLUENZA B - RESP PCR PANEL NOT DETECTED; M. PNEUMONIAE- RESP PCR PANEL NOT DETECTED; PARAINFLUENZA VIRUS 1 NOT DETECTED; PARAINFLUENZA VIRUS 2 NOT DETECTED; PARAINFLUENZA VIRUS 3 NOT DETECTED; PARAINFLUENZA VIRUS 4 NOT DETECTED; RHINOVIRUS/ENTEROVIRUS NOT DETECTED; RSV- RESP PCR PANEL NOT DETECTED; SARS-CoV-2 -RESP PCR PANEL NOT DETECTED
[2022-06-13] MEDS: ZOLPIDEM 5 MG TABLET PO PRN (00:21)
[2022-06-13] MEDS: HYDROcod/ACETAM 5/325 MG TABLET PO PRN ×5 (00:21→20:12)
[2022-06-13] MEDS: SODIUM CHLORIDE FLUSH 0.9% 10 ML SYRINGE IVP SCH ×3 (00:21→17:05)
[2022-06-13] MEDS: DOCUSATE SODIUM 250 MG CAPSULE PO SCH ×2 (07:56→14:51)
[2022-06-13] MEDS: SENNA 8.6 MG TABLET PO SCH ×2 (07:56→20:12)
[2022-06-13] MEDS: metFORMIN 500 MG TABLET PO SCH ×2 (07:56→20:13)
[2022-06-13] MEDS: polyethylene glycoL 3350 17 GM PACKET PO SCH ×2 (07:56→20:12)
[2022-06-13] MEDS: SULFAMETH/TRIMETH DS 800/160 MG TABLET PO SCH (08:00)
[2022-06-13] MEDS: MULTIVITAMIN W/MINERALS TABLET PO SCH (08:00)
[2022-06-13] MEDS: AZITHROMYCIN 250 MG TABLET PO SCH (08:00)
[2022-06-13] MEDS: ACYCLOVIR 200 MG CAPSULE PO SCH ×2 (08:00→20:13)
[2022-06-13] MEDS: traMADol 50 MG TABLET PO PRN (08:00)
[2022-06-14] MEDS: HYDROcod/ACETAM 5/325 MG TABLET PO PRN ×5 (01:32→20:39)
[2022-06-14] MEDS: SENNA 8.6 MG TABLET PO SCH ×2 (01:32→16:12)
[2022-06-14] MEDS: SODIUM CHLORIDE FLUSH 0.9% 10 ML SYRINGE IVP SCH ×3 (01:40→16:13)
[2022-06-14] MEDS: AZITHROMYCIN 250 MG TABLET PO SCH (08:18)
[2022-06-14] MEDS: metFORMIN 500 MG TABLET PO SCH ×2 (08:19→20:40)
[2022-06-14] MEDS: MULTIVITAMIN W/MINERALS TABLET PO SCH (08:19)
[2022-06-14] MEDS: ACYCLOVIR 200 MG CAPSULE PO SCH ×2 (08:20→20:40)
[2022-06-14] MEDS: SULFAMETH/TRIMETH DS 800/160 MG TABLET PO SCH (08:20)
[2022-06-14] MEDS: DOCUSATE SODIUM 250 MG CAPSULE PO SCH (08:20)
[2022-06-14] MEDS: polyethylene glycoL 3350 17 GM PACKET PO SCH ×3 (08:21→20:42)
--- NOTE | 2022-06-14 09:52 | PROVIDER PROGRESS NOTE ---
Subjective - Subjective Pt reports feeling: No change (breathing is ok) Objective - Vital Signs/Intake & Output Reviewed Vital Signs: Yes Vital Signs: Vital Signs x48h Temp Pulse Resp BP Pulse Ox 06/14/22 08:00 36.5 C 103 H 16 128/67 93 Intake & Output: Intake & Output 06/11/22 06/12/22 06/13/22 06/14/22 23:59 23:59 23:59 23:59 Intake Total 1270 1010 1200 240 Output Total 1130 1135 1255 825 Balance 140 -125 -55 -585 - Objective General Appearance: positive: No acute distress, Alert Eyes Bilateral: positive: PERRL, EOMI Neck: positive: No JVD, Trachea midline Respiratory: positive: No respiratory distress, Other (chest tube with continued air leak and 350 to 500 ml serosanguinous fluid each day) Abdomen: positive: Non-tender Neurologic/Psychiatric: positive: Oriented x3 - Lab Results Fish Bones: 06/08/22 11:11 06/08/22 11:11 Assessment/Plan - Problem List (1) Postprocedural pneumothorax Impression: awaiting transfer to [facility] when bed is available he is to transfer to [facility] for definitive treatment by Dr Arce, thoracic surgery
[2022-06-15] MEDS: SODIUM CHLORIDE FLUSH 0.9% 10 ML SYRINGE IVP SCH ×3 (01:08→17:59)
[2022-06-15] MEDS: HYDROcod/ACETAM 5/325 MG TABLET PO PRN ×5 (03:06→23:10)
--- NOTE | 2022-06-15 09:07 | PROVIDER PROGRESS NOTE ---
Subjective - Subjective Pt reports feeling: No change (breathing is the same. not normal however, not bad either) Objective - Vital Signs/Intake & Output Reviewed Vital Signs: Yes Intake & Output: Intake & Output 06/12/22 06/13/22 06/14/22 06/15/22 23:59 23:59 23:59 23:59 Intake Total 1010 1200 1320 640 Output Total 1135 1255 1125 485 Balance -125 -55 195 155 - Objective General Appearance: positive: No acute distress, Alert Eyes Bilateral: positive: PERRL, EOMI Respiratory: positive: No respiratory distress Abdomen: positive: No distention Neurologic/Psychiatric: positive: Oriented x3 - Lab Results Fish Bones: 06/08/22 11:11 06/08/22 11:11 Assessment/Plan - Problem List (1) Postprocedural pneumothorax Impression: persistent pneumothorax and 300 to 500 ml right chest thin serosanguinous drainage per day still awaiting transfer to [facility] for definite care per thoracic surgery Dr Arce transfer delay due to bed availability
[2022-06-15] MEDS: DOCUSATE SODIUM 250 MG CAPSULE PO SCH (09:19)
[2022-06-15] MEDS: SULFAMETH/TRIMETH DS 800/160 MG TABLET PO SCH (09:19)
[2022-06-15] MEDS: MULTIVITAMIN W/MINERALS TABLET PO SCH (09:19)
[2022-06-15] MEDS: ACYCLOVIR 200 MG CAPSULE PO SCH ×2 (09:22→20:41)
[2022-06-15] MEDS: AZITHROMYCIN 250 MG TABLET PO SCH (09:22)
[2022-06-15] MEDS: metFORMIN 500 MG TABLET PO SCH ×2 (09:22→20:41)
[2022-06-15] MEDS: SENNA 8.6 MG TABLET PO SCH ×2 (09:23→20:42)
[2022-06-15] MEDS: polyethylene glycoL 3350 17 GM PACKET PO SCH ×2 (09:23→20:41)
--- NOTE | 2022-06-15 11:49 | PROVIDER PROGRESS NOTE ---
Progress Note I contacted the [facility] ([phone]) regarding information about bed availability. The nursing postal supervisor was unaware of the request for this patient's transfer. I arranged to have the patient's face sheet faxed to their nursing postal supervisor ( ) and provided my phone number to the nursing postal supervisor so that he could contact me when a bed became available. Keron Joseph. General Surgery Service
--- NOTE | 2022-06-15 14:52 | Discharge Plan ---
Discharge Plan Problem Reviewed?: No Disposition: 02 Transfer Acute Care Hosp Condition: Good Diet: Regular Activity Restrictions: No Restrictions Shower Restrictions: Yes (Need to protect pleural catheter if in shower) Instruction Topics: Tubes Chest, Pneumothorax Plan of Treatment: Transfer to Medical Hospitalist Service at [facility] for evaluation and management of malignant right pleural effusion and persistent air leak. Dr. Arce was notified last week of this intent by Dr. Paul Yang. Assessment: Evaluation and management of malignant right pleural effusion Additional Instructions or Follow Up instructions: None No Smoking: If you smoke, Please STOP! Call for help. Follow-up with: Vince Ann MD [Primary Care Provider] -
[2022-06-15] MEDS: traMADol 50 MG TABLET PO PRN (20:41)
[2022-06-16] MEDS: SODIUM CHLORIDE FLUSH 0.9% 10 ML SYRINGE IVP SCH ×3 (00:44→16:46)
[2022-06-16] MEDS: traMADol 50 MG TABLET PO PRN ×3 (02:39→20:44)
[2022-06-16] MEDS: HYDROcod/ACETAM 5/325 MG TABLET PO PRN ×5 (04:55→21:35)
--- NOTE | 2022-06-16 08:39 | PROVIDER PROGRESS NOTE ---
Progress Note S: No complaints other than SOB with exertion. Tolerating a diet; Moving his bowels O: VSS afeb; AAO; In no pain and minimal SOB. The right pleural catheter continued to drain fluid. There is a persistent air leak in the pleuravac but it seems to be less than yesterday. The amount of fluid from the pleuravac was 745 ml yesterday and 150 ml so far today on 20 cm wall suction to the pleuravac. A: Chronic, recurrent right pleural effusion with post-thoracentesis pneumothorax with a persistent air-leak. The patient is awaiting transfer to [facility] with the intent to receive future care from Dr. Arce, a thoracic surgeon. This transfer was arranged by Dr Yang earlier this week. I contacted the [facility] ([phone]) regarding information about bed availability this morning and they do not anticipate an open bed until after the weekend. P: Continue supportive care. Increase wall suction to 40 and obtain a CXR at noon today. Transfer when bed available. Keron Joseph MD General Surgery Service
[2022-06-16] MEDS: SENNA 8.6 MG TABLET PO SCH ×2 (09:08→21:34)
[2022-06-16] MEDS: ACYCLOVIR 200 MG CAPSULE PO SCH ×2 (09:08→21:33)
[2022-06-16] MEDS: SULFAMETH/TRIMETH DS 800/160 MG TABLET PO SCH (09:08)
[2022-06-16] MEDS: MULTIVITAMIN W/MINERALS TABLET PO SCH (09:08)
[2022-06-16] MEDS: AZITHROMYCIN 250 MG TABLET PO SCH (09:09)
[2022-06-16] MEDS: polyethylene glycoL 3350 17 GM PACKET PO SCH ×2 (09:09→21:32)
[2022-06-16] MEDS: metFORMIN 500 MG TABLET PO SCH ×2 (09:10→21:34)
[2022-06-16] MEDS: DOCUSATE SODIUM 250 MG CAPSULE PO SCH (09:10)
--- NOTE | 2022-06-16 12:05 | XRAY Report ---
PROCEDURE: Chest 1 View X-Ray INDICATIONS: FU left pleural effusion and pneumothorax TECHNIQUE: One view of the chest was acquired. COMPARISON: 06/12/2022 FINDINGS: Surgical changes and devices: Pigtail catheter projects over the right lower chest Lungs and pleura: There is a possible small right pleural effusion. No change in large right pneumot horax. Mediastinum: Mediastinal contours appear normal. Heart size is normal. Bones and chest wall: No suspicious bony lesions. Overlying soft tissues appear unremarkable. IMPRESSION: No significant change in large right pneumothorax. Possible small right pleural effusion. Right later al decubitus positioning may help with drainage of the effusion. Reviewed by: Megan Mckeon MD on 06/16/2022 11:03 AM [facility] Approved by: Megan Mckeon MD on 06/16/2022 11:03 AM [facility] Station ID: [id number]
--- NOTE | 2022-06-16 13:20 | PROVIDER PROGRESS NOTE ---
Progress Note Kaleb is resting comfortably watching soccer on television. He has no resting SOB. His pleuravac still demonstrates an air leak and continues to drain pleural fluid. His 1200 CXR is unchanged from previous - the right lung is poorly inflated and surrounded by pleural fluid below and air above. The pigtail catheter is within the pleural space. Although I think Kaleb might benefit from one (or two) large bore pleural catheters to evacuate the pleural fluid with the intent to permit the lung to expand and hopefully seal the air leak, he refuses this option and only wants to wait until he can be evaluated by Dr. Arce, a Thoracic surgeon he has been advised to see by his friends. I think this is a better option as a VATS proced ure would be definitive therapy of his chronic, recurrent pleural effusion. Of concern, however, is that the catheter has already been in place for 8 days. Continued supportive care until a bed becomes available at [facility] is the current plan. Keron Joseph MD General Surgery Service
[2022-06-17] MEDS: SODIUM CHLORIDE FLUSH 0.9% 10 ML SYRINGE IVP SCH ×4 (00:44→20:18)
[2022-06-17] MEDS: HYDROcod/ACETAM 5/325 MG TABLET PO PRN ×5 (01:45→20:15)
[2022-06-17] MEDS: polyethylene glycoL 3350 17 GM PACKET PO SCH ×2 (08:40→21:08)
[2022-06-17] MEDS: ACYCLOVIR 200 MG CAPSULE PO SCH ×2 (08:40→20:14)
[2022-06-17] MEDS: SULFAMETH/TRIMETH DS 800/160 MG TABLET PO SCH (08:40)
[2022-06-17] MEDS: traMADol 50 MG TABLET PO PRN ×2 (08:40→15:09)
[2022-06-17] MEDS: DOCUSATE SODIUM 250 MG CAPSULE PO SCH ×2 (08:40→21:08)
[2022-06-17] MEDS: MULTIVITAMIN W/MINERALS TABLET PO SCH (08:40)
[2022-06-17] MEDS: SENNA 8.6 MG TABLET PO SCH ×2 (08:40→20:15)
[2022-06-17] MEDS: AZITHROMYCIN 250 MG TABLET PO SCH (08:40)
[2022-06-17] MEDS: metFORMIN 500 MG TABLET PO SCH (08:41)
--- NOTE | 2022-06-17 10:44 | PROVIDER PROGRESS NOTE ---
Progress Note S: Kaleb feels fine. He is frustrated at the delay regarding transfer to [facility] but understands the circumstances. He has no worsening of his SOB. O: His pleural catheter is well secured to the right chest wall and is functioning. The dressing is clean and dry. He continues to demonstrate a continuous air leak in the pleura-vac and the daily output of pleural effusion is between 500 ml and 800 ml. A/P: Continue supportive care until transfer to [facility] Tomorrow I will contact the Thoracic Surgeon to see if he can accelerate the transfer process. Keron Joseph MD General Surgery Service
[2022-06-18] MEDS: HYDROcod/ACETAM 5/325 MG TABLET PO PRN ×4 (00:25→23:35)
[2022-06-18] MEDS: traMADol 50 MG TABLET PO PRN ×3 (03:38→17:18)
[2022-06-18] MEDS: AZITHROMYCIN 250 MG TABLET PO SCH (08:43)
[2022-06-18] MEDS: MULTIVITAMIN W/MINERALS TABLET PO SCH (08:43)
[2022-06-18] MEDS: DOCUSATE SODIUM 250 MG CAPSULE PO SCH ×3 (08:44→21:21)
[2022-06-18] MEDS: ACYCLOVIR 200 MG CAPSULE PO SCH ×2 (08:45→21:20)
[2022-06-18] MEDS ORDERED: PROCHLORPERAZINE 5 MG TABLET PO PRN (08:48)
[2022-06-18] MEDS: SULFAMETH/TRIMETH DS 800/160 MG TABLET PO SCH (08:50)
[2022-06-18] MEDS: SODIUM CHLORIDE FLUSH 0.9% 10 ML SYRINGE IVP SCH ×2 (08:50→15:59)
[2022-06-18] MEDS: SENNA 8.6 MG TABLET PO SCH ×2 (08:51→23:35)
[2022-06-18] MEDS: polyethylene glycoL 3350 17 GM PACKET PO SCH ×2 (08:52→21:21)
--- NOTE | 2022-06-18 09:07 | PROVIDER PROGRESS NOTE ---
Progress Note Kaleb's clinical status is unchanged. His air leak persists and he continues to drain 400- 500 ml from his pleural catheter. The dressing is dry and the catheter is secured. Regarding our efforts to execute the transfer: I called the [facility] ([phone]). I was directed to the voice mail system and so I left a message for them to contact me at [phone] regarding this patient's transfer status. I called [facility] ([phone]) in an attempt to determine if Dr. Arce could somehow expedite this patient's transfer. I was told that Dr. Arce was in surgery until later this morning and that he would call me back when he became available. My name and phone number were provided. I called the [facility] on [address] in [place] ([phone]) in an attempt to reach Dr. Ann, the load out worker that directed the patient to seek out Dr. Arce for management of his recurrent pleural effusion and persistent air leak with the hope that he could expedite this patient's transfer. I left a message for him to return my call at his earliest convenience as this was the only option available to me. Keron Joseph MD General Surgery Service
--- NOTE | 2022-06-18 10:17 | PROVIDER PROGRESS NOTE ---
Progress Note S: Dr Ann was kind enough to call back and provide me additional information. Although the 05/03/22 thoracentesis results were negative for cancer, the June 08, 2022 thoracentesis results are highly suspicious for malignancy with the primary suspected to be in the UGI tract or biliary tree. These results can now be found in [facility], Laboratory, Visit 06/08/22. We also discussed the possibility of transfer to the Thor[facility] Surgeons in [place] if [facility] remains full. I discussed the report with Kaleb and in my opinion, the cytology results do not change our plan for him to be seen by our Thoracic Surgery colleagues because one of the options for management of malignant pleural effusions is VATS with pleural biopsy and talc poudrage. In addition, the persistent air leak may be amenable to staple closure. I also contacted the oncology clinic and they will let his oncologist, Dr. Barfield, know of this malignant pleural effusion and how he would to proceed with workup while an in-patient. O: Right pleural catheter continues to pull 500-800 ml/day of effusion - this results in an enormous loss of daily protein. The air leak persists. He has considerable extremity muscle wasting and his oral intake is less than 50% of that recommended during this hospitalization. He continues to lose weight (>7.5% over the last 3 months) and has lost over 22 kg since October 2021. 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 Will discuss with Dr. Barfield. 2) Persistent right lung air leak -controlled with pleural pigtail catheter. Will require full lung expansion and/or stapled closure for resolution. 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
[2022-06-18] MEDS ORDERED: iohexoL-300 100 ML VIAL ONE (14:16)
[2022-06-18] MEDS ORDERED: DIATRIZOATE MEGLU/DIATRIZO SOD 30 ML BOTTLE PO ONE ×2 (14:16→17:22)
[2022-06-18] MEDS ORDERED: SENNA 8.6 MG TABLET PO SCH (15:59)
--- NOTE | 2022-06-18 16:50 | CT Report ---
PROCEDURE: ABDOMEN/PELVIS W INDICATIONS: Malignant pleural effusion CONTRAST: 100ml Omnipaque 300 TECHNIQUE: After the administration of intravenous and oral contrast, 5 mm thick sections acquired from the diap hragms to the symphysis. 5 mm thick coronal and sagittal reformats were acquired. For radiation dos e reduction, the following was used: automated exposure control, adjustment of mA and/or kV accordin g to patient size. COMPARISON: None. FINDINGS: Image quality: Excellent. ABDOMEN: Lung bases: There is a right basilar hydropneumothorax present. Visualized portions of the right ther e is likely trace focal fat at the falciform ligament. Lung base appear consolidated with trace air b ronchograms suggesting a trapped lung. The left lung base is clear. Solid organs: Liver and spleen are normal in size and enhancement. Gallbladder is unremarkable Tommy iary system is non dilated. Pancreas enhances normally. No adrenal nodules. Kidneys demonstrate no rmal size and enhancement, without hydronephrosis. Peritoneum and bowel: Bowel loops demonstrate normal wall thickness and caliber. The appendix is thi n-walled and gas-filled. No free fluid or air. Nodes and vessels: No retroperitoneal or mesenteric adenopathy by size criteria. Aorta and inferior vena cava are normal in size. There are scattered atheromatous calcifications throughout the abdomi nal aorta. Miscellaneous: No ventral hernias. PELVIS: Genitourinary: Bladder wall thickness is normal. Miscellaneous: No inguinal hernias or adenopathy. Bones: No suspicious bony lesions. Multilevel severe compression deformities are present, some of wh ich are new when compared with the prior CT dated 11/18/2019. Findings suggest severe multilevel osteo porotic fractures. IMPRESSION: 1. 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 2. No infradiaphragmatic metastasis. However, there are multiple severe compression deformities of th e lumbar spine. These likely represent osteoporotic fractures although pathologic fractures in the se tting of spine metastasis cannot be excluded. 3. No acute intra-abdominal findings. Normal appendix. Reviewed by: Dominga Rico MD on 06/18/2022 4:48 PM PST Approved by: Dominga Rico MD on 06/18/2022 4:48 PM PST Station ID: [id number]
[2022-06-18] MEDS ORDERED: iohexoL-300 100 ML VIAL IVP ONE (17:22)
--- NOTE | 2022-06-18 17:28 | CONSULTATION NOTE ---
Palliative Care Consultation - Referral Referring Provider: Dr. Rickie Joseph MD Time of Visit: [id number] Referral setting: Hospitalized patient Referral Reason: Goals of Care/Symptom Management - Information Sources Records reviewed: Previous records reviewed History/Review of Systems obtained from: Patient Exam limitations: No limitations - History of Present Illness Brief History of Present Illness: This is a 76-year-old gentleman who has been hospitalized since 06/08 with pneumothorax, currently awaiting transfer to tertiary care center for further thoracic surgery evaluation and management. He does have a right pleural catheter which continues to pull significant amount of fluid of effusion, with persistent air leak. He does understand this is a priority. Patient's other understanding is that he does have now cancer cells in his lung fluid, and are trying to understand the underlying etiology of this. Patient in the context of this wants to "get his ducks in a row". I am familiar with patient from caring for his friend who on hospice. Patient has history of chronic lymphocytic leukemia since 05/2019, as well as presented with multiple myeloma, he was getting Revlimid, which since has been held secondary to awaiting resolution of her underlying etiology of pleural effusions. Patient has received Velcade, and was on maintenance. Patient does have known burst fractures of T12, L1, L2 and L5. And reports that he was having increased issues with shortness of breath, limiting his functional status as well as concern for his independence. Patient does live alone, has many friends and family who are willing to help. Patient also has a history of hypercalcemia. Patient just received CT scan of his abdomen, they are looking given his pathology from his last thoracentesis, on 06/08 showed suspicion for malignancy of the GI tract or biliary tree. He most likely is going to need scoping EGD and colonoscopy for further evaluation, CT scan does not appear to have shown any definitive findings. In follow-up with Dr. Barfield, this does make patient stage IV disease, with findin gs in the pleura, and currently unknown primary. Palliative care meeting with patient to define goals of care, evaluate priorities, establish rapport, and evaluate symptom management. Palliative care is consultative in nature, will review recommendations at end of note. Medical/Surgical History - Past Medical History Cardiovascular: reports: None Respiratory: reports: Shortness of breath, Other (recurrent pleural effusion/pneumothorax) Neuro: None Endocrine/Autoimmune: reports: None GI: reports: None : reports: Renal insuffiency (CKD III) HEENT: reports: Chronic hearing loss Psych: reports: None Musculoskeletal: reports: Other (Multiple Myeloma with hx pathological fx) Derm: reports: Other (hx of cyst on right eyebrow) MRSA Hx?: No - Past Surgical History Derm: reports: Other Social History - Living Situation Living arrangement: At home Living Situation: Alone Support System: Patient social history is quite complex, he has been 4 times, does have son whom he does not want involved in his care, [place], he does stay in contact with his daughter Abigail, and sees his granddaughter Delmi who is the apple of his eye. He is very much estranged from his son. He also has a daughter in [place], whom he is in contact with whom he finds most supportive is his stepdaughter Meg, who is also the executor for his will. He would also like her to be his healthcare DPOA, as well as to finish putting his affairs in order.Patient has had a long and colorful life, has been in construction, has been able to go around the world, reports he is been in movies, and feels like he has lived a good life. He does not perceive himself as depressed. He has some very good friends, who are quite supportive and will continue to support him through his current process. He does though live alone, has had more trouble meeting his care needs, mostly this is related to his dyspnea and progressive weakness. He has had functional decline. Family History - Family History Family History: Mother: (there were six children, 4 alive, one brother has "bone cancer"), Father: , Sister: , Brother: Medications/Allergies - Medications Active Medication List: Active Medications Acetaminophen (Acetaminophen 325 Mg Tablet) 650 mg PO Q4HR PRN PRN Reason: Pain 1 to 4, or Fever Last Admin: 06/10/22 11:55 Dose: 650 mg Hydrocodone Bitart/Acetaminophen (Hydrocod/Acetam 5/325 Mg Tablet) 1 tab PO Q4HR PRN PRN Reason: Pain 5 to 7 Last Admin: 06/18/22 06:16 Dose: 1 tab Acyclovir (Acyclovir 200 Mg Capsule) 400 mg PO BID AYANNA Last Admin: 06/18/22 08:45 Dose: 400 mg Albuterol (Albuterol Neb 2.5 Mg/3 Ml) 2.5 mg INH Q4H PRN PRN Reason: Wheezing Azithromycin (Azithromycin 250 Mg Tablet) 250 mg PO DAILY [facility] Last Admin: 06/18/22 08:43 Dose: 250 mg Diatrizoate Meglum/Diatrizoate Sod (Diatrizoate Meglu/Diatrizo Sod 30 Ml Bottle) 30 ml PO ONCE ONE Stop: 06/18/22 17:23 Last Admin: 06/18/22 17:22 Dose: 30 ml Docusate Sodium (Docusate Sodium 250 Mg Capsule) 250 - 500 mg PO BID [facility] Last Admin: 06/18/22 17:18 Dose: 500 mg Iohexol (Iohexol-300 100 Ml Vial) 100 ml IVP ONCE ONE Stop: 06/18/22 17:23 Last Admin: 06/18/22 17:22 Dose: 100 ml Multivitamins/Minerals (Multivitamin W/Minerals Tablet) 1 tab PO DAILYWM [facility] Last Admin: 06/18/22 08:43 Dose: 1 tab Polyethylene Glycol (Polyethylene Glycol 3350 17 Gm Packet) 17 gm PO BID [facility] Last Admin: 06/18/22 08:52 Dose: 17 gm Prochlorperazine Maleate (Prochlorperazine 5 Mg Tablet) 5 mg PO Q6HR PRN PRN Reason: Nausea / Vomiting Last Admin: 06/18/22 11:01 Dose: 5 mg Senna (Senna 8.6 Mg Tablet) 8.6 - 17.2 mg PO BID [facility] Last Admin: 06/18/22 17:18 Dose: 17.2 mg Sodium Chloride (Sodium Chloride Flush 0.9% 10 Ml Syringe) 10 ml IVP PRN PRN PRN Reason: NEEDED PER PROVIDER ORDERS Sodium Chloride (Sodium Chloride Flush 0.9% 10 Ml Syringe) 10 ml IVP 0100,0900,1700 [facility] Last Admin: 06/18/22 15:59 Dose: 10 ml Tramadol HCl (Tramadol 50 Mg Tablet) 50 mg PO Q6H PRN PRN Reason: PAIN Last Admin: 06/18/22 17:18 Dose: 50 mg Trimethoprim/Sulfamethoxazole (Sulfameth/Trimeth Ds 800/160 Mg Tablet) 1 tab PO DAILY [facility] Last Admin: 06/18/22 08:50 Dose: 1 tab Zolpidem Tartrate (Zolpidem 5 Mg Tablet) 5 mg PO QPM PRN PRN Reason: Insomnia Last Admin: 06/13/22 00:21 Dose: 5 mg metFORMIN [Glucophage] 500 mg PO BIDWM 05/04/22 Albuterol Sulf [Ventolin Hfa Inhaler] 2 puffs INH QID PRN 06/12/22 Ondansetron [Ondansetron Odt] 1 tab PO Q8H PRN 06/12/22 Sildenafil Citrate 1 tab PO DAILY PRN 06/12/22 - Allergies Allergies/Adverse Reactions: Allergies Allergy/AdvReac Type Severity Reaction Status Date / Time No Known Drug Allergies Allergy Verified 06/08/22 10:47 Review of Systems - Constitutional Constitutional: reports: Fatigue, Weakness, Poor appetite, Weight loss (severe was originally 220; after regained weight to 195 two months ago felt good; now 154 reports part poor appetite and some issues with meal prep) - Ears, Nose & Throat Ears, Nose & Throat: reports: Hearing loss - Cardiovascular Cardiovascular: reports: Exertional dyspnea, Decr. exercise tolerance. denies: Chest pain - Respiratory Respiratory: reports: Cough, SOB at rest, SOB with exertion, Pleuritic pain - Gastrointestinal Gastrointestinal: reports: Constipation (has been problematic), Nausea (today), Poor appetite, Early satiety, Other (taste changes) - Genitourinary Genitourinary: denies: Incontinence - Musculoskeletal Musculoskeletal: reports: Muscle weakness - Integumentary Integumentary: reports: Dryness - Neurological Neurological: reports: General weakness - Psychiatric Psychiatric: denies: Depression, Anxiety - Hematologic/Lymphatic Hematologic/Lymph: reports: Anemia (10.4 worsening) - All Other Systems All Other Systems: reports: Reviewed and negative Physical Exam - Vital Signs Vital Signs: Vital Signs x48h Temp Pulse Resp BP Pulse Ox 06/18/22 16:00 36.7 C 97 18 136/86 H 95 - Physical Exam General Appearance: positive: No acute distress Eyes Bilateral: positive: Normal inspection ENT: positive: No signs of dehydration Neck: positive: Trachea midline Respiratory: positive: Other (respiratory effort with conversation) Abdomen: positive: Non-tender, Soft Skin: positive: Pallor, Other (CT with dressing) Extremities: positive: No pedal edema, Other (mostly in room; limited mobililty with chest tube; has had decline in functional status prioir to this with dyspnea) Neurologic/Psychiatric: positive: Oriented x3, Mood/affect nml, Weakness Palliative Care - POLST Patient has POLST: No Pain: Pain worsening, Location (at chest tube exit site; worsens with cough and movement), Severity (3-4 /10; "pain pills" lasting only about 3 hours, understands he can have them every 4), Pattern (pain persistent) Tiredness/Fatigue: Severe (7-10) Drowsiness/Sedation: Moderate (4-6) Nausea: Mild (1-3) Anorexia: Severe (7-10), Weight loss Dyspnea: Severe (7-10) Depression: None Anxiety: Mild (1-3) Feelings of wellbeing/Perceived Quality of Life: Fair, Worsening Sleep: Variable sleep pattern Constipation: Yes, Opoid induced, Unmanaged - Palliative Care Discussion: Patient is aware of the seriousness of his illness, is aware they are trying to work him up. He understands it is positive for cancer, and most likely could be "terminal". He had had a good experience with his friend whom he had taken care of with hospice support, and his ultimate goal is to have the same. He wants to get his ducks in a row, he has identified friends and family who are willing to be caregivers if things continue to progress quickly, he does understand that he is waiting for further follow-ups and staging, though this does make him stage IV at this time with it in the pleural fluid. For his quality of life, he does need follow-up from the thoracic surgery, to be able to manage his current acute pneumothorax.We did discuss in the context of what is most important to him, he feels like he has lived a good life, is not to prolong suffering, and to make sure he is taking care of everything ahead of time. Did provide patient with advance care planning form that includes the range of both DPOA, directives, and care after . He is going to read through and we will meet in follow-up tomorrow. He is aware he may leave it anytime, have talked to his oncologist, will get an outpatient referral to follow along with patient's journey. Palli ative care will continue to build rapport, and help define goals of care further as work-up continues. Results - Lab Results Lab results reviewed: Yes Jacob Bones: 06/08/22 11:11 06/08/22 11:11 Impression and Recommendations - Palliative Care Impression: This is a 76-year-old gentleman with known CLL and multiple myeloma, now presenting a second time with pneumothorax, pleural effusion, awaiting transfer to thoracic surgery. Patient does present with fairly high symptom burden, weight loss, and functional decline. Patient is interested in "getting his ducks in a row" and working on his advanced care planning goals. Palliative care meeting with patient, to review pain and symptom management advance care planning and anticipatory guidance. Recommendations/Counseling Done: 1. Acute pain. Patient does present with persistent acute pain at chest tube exit site, patient has both hydrocodone 5 mg / 325 mg and tramadol 50 mg ordered, these are equanalgesic. Would consider given patient's level of acute pain, and medications only lasting 3 hours, transitioning to oxycodone 5 mg every 3 hours as needed for acute uncontrolled pain. This would not limit with acetaminophen, and be more consistent as patient is not benefiting from all terminating [place] and tramadol. 2.Anorexia. Did follow-up with Dr. Barfield, patient is no longer on Velcade, does not need to be on prophylaxis, can discontinue the Bactrim, as well as acyclovir. This may help with his appetite. Would also recommend and patient in agreement to try mirtazapine, I would initiate at 7.5 mg at bedtime, as patient has both insomnia, and would benefit appetite sleep and address any underlying depression. Then increase to 15 mg in 1 week. 3. Constipation. Patient on adequate bowel program. 4. Advance care planning. Counseling provided regarding the continuum of care, introducing advance care planning documents, creating report in the setting of goals clarification. We will continue to follow, until transfer, and patient aware to contact me after he returns home, for ongoing outpatient support. 60 minutes with getting 50% of this done in counseling regarding the continuum of care, pain and symptom management, role of palliative care, and anticipatory guidance.
[2022-06-19] MEDS: SODIUM CHLORIDE FLUSH 0.9% 10 ML SYRINGE IVP SCH ×3 (01:20→16:00)
[2022-06-19] MEDS: HYDROcod/ACETAM 5/325 MG TABLET PO PRN ×4 (04:45→20:23)
[2022-06-19] MEDS: SENNA 8.6 MG TABLET PO SCH ×3 (05:51→16:00)
--- NOTE | 2022-06-19 07:49 | PROVIDER PROGRESS NOTE ---
Progress Note Patient comfortable; Chest tube still with air leak and evacuation of pleural fluid. Patient's appetite is poor and he may benefit from an appetite stimulant (Mirtazapine, 7.5 mg PO QHS) which I will start today. He is having bowel motions and is not uncomfortable. Was seen at his request by Palliative Care yesterday and I appreciate the recommendations. I spoke with Dr. Ann last evening and he will try to contact a couple Thoracic Surgeons to see if they can assist us in this patient's care. Keron Joseph MD General Surgery Service
[2022-06-19] MEDS: polyethylene glycoL 3350 17 GM PACKET PO SCH ×2 (09:01→22:25)
[2022-06-19] MEDS: AZITHROMYCIN 250 MG TABLET PO SCH (09:02)
[2022-06-19] MEDS: traMADol 50 MG TABLET PO PRN (09:02)
[2022-06-19] MEDS: MULTIVITAMIN W/MINERALS TABLET PO SCH (09:02)
[2022-06-19] MEDS: DOCUSATE SODIUM 250 MG CAPSULE PO SCH ×2 (09:12→22:25)
[2022-06-19] MEDS ORDERED: MIRTAZAPINE 15 MG TABLET PO SCH (21:00)
[2022-06-20] MEDS: HYDROcod/ACETAM 5/325 MG TABLET PO PRN ×4 (00:03→16:26)
[2022-06-20] MEDS: SODIUM CHLORIDE FLUSH 0.9% 10 ML SYRINGE IVP SCH ×2 (00:04→08:54)
[2022-06-20] MEDS: traMADol 50 MG TABLET PO PRN (03:15)
[2022-06-20] MEDS: ZOLPIDEM 5 MG TABLET PO PRN (03:15)
[2022-06-20] MEDS: MULTIVITAMIN W/MINERALS TABLET PO SCH (07:56)
[2022-06-20] MEDS: AZITHROMYCIN 250 MG TABLET PO SCH (07:56)
[2022-06-20] MEDS: DOCUSATE SODIUM 250 MG CAPSULE PO SCH (07:56)
[2022-06-20] MEDS: polyethylene glycoL 3350 17 GM PACKET PO SCH (08:46)
--- NOTE | 2022-06-20 08:46 | PROVIDER PROGRESS NOTE ---
Progress Note S: Kaleb is clinically stable. He has SOB on exertion but is otherwise comfortable. He is tolerating a diet and his bowels are functional. O: There is a persistent air leak from the right pleural catheter. The catheter is now pulling 200-400 ml of clear serous effusion daily. The catheter is secured to the right chest wall. A: Malignant right pleural effusion with continuous air leak, awaiting transfer to a facility with VATS capabilities. The patient has a preference for Dr. Arce, (Thoracic Surgery at [facility] [place]) as Dr. rAce was recommended by his PCP. Plan: 1) I contacted the nursing drilling supervisor at [facility] [place] this morning and she thinks they may have a bed open up today on the surgical floor. She will contact me later with an update. I will check a CBC and BMP today as his last set of labs were on admission. 2) Another option (which is less than ideal) would be to discharge the patient to home with the pleura-vac, have home nursing care by Hospice or Visiting nurses or have him seen in our Surgery clinic or our ED for assistance with the pleura-vac, and arrange for this patient to be seen by Dr. Arce as an out- patient. He would need an out-patient referral from his PCP, Dr. Ann who is not in the office today. I discussed this with Dr. Barfield, the patient's oncologist who sees this option as reasonable given the delay in transfer. Keron Joseph MD General Surgery Service
[2022-06-20 09:03] LABS: BASOPHILS % (AUTO) 0.3 %; EOSINOPHILS % (AUTO) 0.2 %; HCT - HEMATOCRIT 35.4 % (42.0-52.0); HGB - HEMOGLOBIN 11.3 g/dL (14.0-18.0); LYMPHOCYTES % (AUTO) 9.7 %; MEAN CORPUSCULAR HEMOGLOBIN 30.7 pg (27.0-31.0); MEAN CORPUSCULAR HGB CONC 31.9 g/dL (32.0-36.0); MEAN CORPUSCULAR VOLUME 96.2 fL (80.0-94.0); MEAN PLATELET VOLUME 8.1 fL (7.4-11.4); MONOCYTES # (AUTO) 1.1 10^3/uL (0.0-1.0); MONOCYTES % (AUTO) 10.4 %; NEUTROPHILS # (AUTO) 8.1 10^3/uL (1.5-6.6); NEUTROPHILS % (AUTO) 78.9 %; PLT - PLATELET COUNT 498 10^3/uL (130-450); RED BLOOD COUNT 3.68 10^6/uL (4.70-6.10); RED CELL DISTRIBUTION WIDTH 14.6 % (12.0-15.0); WHITE BLOOD COUNT 10.2 x10^3/uL (4.8-10.8)
[2022-06-20 09:21] LABS: CALCIUM 8.6 mg/dL (8.5-10.3); CREATININE 1.4 mg/dL (0.6-1.2); POTASSIUM 3.8 mmol/L (3.5-5.0)
[2022-06-20] MEDS ORDERED: MAG HYDROX/AL HYDROX/SIMETH 30 ML UDC PO PRN (11:36)
--- NOTE | 2022-06-20 14:42 | PROVIDER PROGRESS NOTE ---
Progress Note General Surgery Transfer Note Kaleb has been accepted in transfer to the Medical Hospitalist Service at [facility]. Transfer is expected to occur this afternoon. The patient is hemodynamically stable with labs as shown below: H&H 11.2/45.4; WBC 10.2k; Ply 498k K 3.8; Na 136; Bun 21; Cr 1.4; Glu 132 All questions for me from the receiving facility physician have been addressed and I have given her my cell number if further information is required. Keron Joseph MD General Surgery Service
[2022-06-20 16:09] VITALS: BP 101/58
[2022-06-20] MEDS ORDERED: FAMOTIDINE 20 MG TABLET PO SCH (21:00)
== END 2022-06-20 16:35 | disposition short-term general hospital (02) | DRG 199 ==
LOC: ED 10:32 → EEVIPCON 19:03 → MS3 19:03 → MS2 06-14 13:01
PROVIDERS: ADMIT Surgery; ATTEND Surgery
DX: J95.811 Postprocedural pneumothorax (principal); E43 Unspecified severe protein-calorie malnutrition; C24.9 Malignant neoplasm of biliary tract, unspecified; J91.0 Malignant pleural effusion; C91.10 Chronic lymphocytic leukemia of B-cell type not having achieved remission; C90.00 Multiple myeloma not having achieved remission; C26.9 Malignant neoplasm of ill-defined sites within the digestive system; Z20.822 Contact with and (suspected) exposure to COVID-19; N18.30 Chronic kidney disease, stage 3 unspecified; R53.1 Weakness; D64.9 Anemia, unspecified; K59.03 Drug induced constipation; T40.2X5A Adverse effect of other opioids, initial encounter; R63.0 Anorexia; Z68.20 Body mass index [BMI] 20.0-20.9, adult; Z51.5 Encounter for palliative care; M62.50 Muscle wasting and atrophy, not elsewhere classified, unspecified site; F17.200 Nicotine dependence, unspecified, uncomplicated
CPT/HCPCS: 32551; 32555; 36415; 71045; 74177; 80048; 80053; 85025; 85610; 87633; 93005; 93306; 96374; 99291; A9270; Q9963; Q9967

== ENCOUNTER 2022-07-12 08:38 | Outpatient (CLI) | payer OTHER ==
[2022-07-12 12:43] LABS: BASOPHILS % (AUTO) 0.4 %; EOSINOPHILS % (AUTO) 0.5 %; HCT - HEMATOCRIT 34.2 % (42.0-52.0); HGB - HEMOGLOBIN 10.7 g/dL (14.0-18.0); LYMPHOCYTES # (AUTO) 0.9 10^3/uL (1.5-3.5); LYMPHOCYTES % (AUTO) 10.8 %; MEAN CORPUSCULAR HGB CONC 31.3 g/dL (32.0-36.0); MEAN CORPUSCULAR VOLUME 99.1 fL (80.0-94.0); MEAN PLATELET VOLUME 8.7 fL (7.4-11.4); MONOCYTES # (AUTO) 0.8 10^3/uL (0.0-1.0); MONOCYTES % (AUTO) 9.8 %; NEUTROPHILS # (AUTO) 6.2 10^3/uL (1.5-6.6); PLT - PLATELET COUNT 491 10^3/uL (130-450); RED BLOOD COUNT 3.45 10^6/uL (4.70-6.10); RED CELL DISTRIBUTION WIDTH 15.2 % (12.0-15.0); WHITE BLOOD COUNT 7.9 x10^3/uL (4.8-10.8)
[2022-07-12 12:45] LABS: ALBUMIN 2.5 g/dL (3.2-5.5); ALBUMIN/GLOBULIN RATIO 0.6 (1.0-2.2); BILIRUBIN,TOTAL 0.3 mg/dL (0.2-1.0); CALCIUM 8.8 mg/dL (8.5-10.3); POTASSIUM 4.5 mmol/L (3.5-5.0)
[2022-07-12 13:12] LABS: FOLATE 22.44 ng/mL (5.90 - >24.8)
== END 2022-07-12 08:39 | disposition home or self-care (01) ==
LOC: LAB.N 08:38
PROVIDERS: ATTEND Nurse Practitioner Adult Health
DX: C91.10 Chronic lymphocytic leukemia of B-cell type not having achieved remission (principal)
CPT/HCPCS: 36415; 80053; 82607; 82746; 83540; 84466; 85025

== ENCOUNTER 2022-09-27 09:49 | Day surgery (SDC) | payer MEDICARE, MEDICAID ==
[~2022-09-27 09:49] MED LIST: CEFAZOLIN 2G/50ML 0.9% NS 2 GM/50 ML BAG IV ONE
[2022-09-27] MEDS ORDERED: LACTATED RINGERS 1,000 ML IV ONE ×2 (09:59→11:38)
[2022-09-27] MEDS ORDERED: MIDAZOLAM 2 MG/2 ML VIAL ONE (10:05)
[2022-09-27] MEDS ORDERED: fentaNYL 100 MCG/2 ML VIAL ONE (10:05)
[2022-09-27] MEDS ORDERED: PROPOFOL 500 MG/50 ML 500 MG/50 ML VIAL ONE (10:06)
--- NOTE | 2022-09-27 10:10 | ANESTHESIA ---
Pre-Anesthesia VS, & Labs - Diagnosis lung cancer - Procedure port placement Height: 6 ft 3 in - NPO >8 hours Home Medications and Allergies Home Medications: Ambulatory Orders Naproxen Sodium [Aleve] 220 mg PO PRN PRN 09/24/22 traMADol [Ultram] 50 mg PO QID PRN 09/24/22 Naproxen Sodium [Aleve] 220 mg PO PRN PRN 09/24/22 traMADol [Ultram] 50 mg PO QID PRN 09/24/22 Allergies/Adverse Reactions: Allergies Allergy/AdvReac Type Severity Reaction Status Date / Time No Known Drug Allergies Allergy Verified 06/08/22 10:47 Anes History & Medical History - Anesthetic History Family history of Anesthesia Complications: Denies Family history of Malignant Hyperthermia: Denies - Medical History Cardiovascular: reports: None Pulmonary: reports: Shortness of breath, Other Gastrointestinal: reports: None Urinary: reports: Renal insuffiency Neuro: reports: None Musculoskeletal: reports: Osteoarthritis Endocrine/Autoimmune: reports: None Blood Disorders: reports: None Skin: reports: Other Smoking Status: Former smoker - Surgical History General: reports: Other Dermatologic: reports: Other Exam General: Alert, Oriented x3, Cooperative Dental: WNL, Poor dentition Mouth Openin Fingerbreadth Neck Mobility: Normal Mallampati classification: II Respiratory: Decreased breath sounds, Rhonchi (R), Inspiration Cardiovascular: Regular rate Plan Anesthesia Type: Total IV Consent for Procedure(s) Verified and Reviewed: Yes Code Status: Attempt Resuscitation ASA classification: 3-Severe systemic disease Is this case an emergency?: No
--- NOTE | 2022-09-27 10:15 | HISTORY & PHYSICAL EXAMINATION ---
Chief Complaint - Chief Complaint Chief Complaint: here for chemotherapy port History of Present Illness - History Obtained From Records Reviewed: yes History obtained from: pt Exam Limitations: none - History of Present Illness HPI Comment/Other: history malignant right pleural effusion and adenoca right lung. improved after treatment at [facility] History - Past Medical History Cardiovascular: reports: None Respiratory: reports: Shortness of breath, Other Neuro: reports: None Endocrine/Autoimmune: reports: None GI: reports: None : reports: Renal insuffiency HEENT: reports: Chronic vision loss, Chronic hearing loss Psych: reports: None Musculoskeletal: reports: Osteoarthritis Derm: reports: Other MRSA Hx?: No - Past Surgical History General: reports: Other Derm: reports: Other - Family & Social History Family History: Mother: (there were six children, 4 alive, one brother has "bone cancer"), Father: , Sister: , Brother: Living Situation: Alone - POLST Patient has POLST: No Meds/Allgy - Home Medications Home Medications: Ambulatory Orders Medication Instructions Recorded Confirmed Naproxen Sodium [Aleve] 220 mg PO PRN PRN 09/24/22 09/24/22 traMADol [Ultram] 50 mg PO QID PRN 09/24/22 09/24/22 - Allergies Allergies/Adverse Reactions: Allergies Allergy/AdvReac Type Severity Reaction Status Date / Time No Known Drug Allergies Allergy Verified 06/08/22 10:47 Review of Systems - Other Findings Other Findings: 10 pt ros as above otherwise unremarkable Exam - Vital Signs Reviewed Vital Signs: Yes - Physical Exam General Appearance: positive: No acute distress, Alert Eyes Bilateral: positive: PERRL, EOMI ENT: positive: No signs of dehydration Neck: positive: No JVD, Trachea midline Respiratory: positive: No respiratory distress Cardiovascular: positive: Regular rate & rhythm Abdomen: positive: No distention Neurologic/Psychiatric: positive: Oriented x3 Conclusion/Plan - Problem List (1) Lung cancer Conclusion/Plan: plan port placement. parq held and consent obtained
[2022-09-27] MEDS ORDERED: BUPIVACAINE 0.5% PF 30 ML VIAL ONE (10:21)
[2022-09-27] MEDS ORDERED: LIDOCAINE MPF 2%-EPI 1:200000 20 ML VIAL ONE (10:21)
[2022-09-27] MEDS ORDERED: PHENYLEPHRINE 10 MG/ML VIAL ONE (10:56)
[2022-09-27] MEDS ORDERED: LIDOCAINE 2%-EPI 1:100000 20 ML MDV SUBQ ONE ×2 (11:15)
[2022-09-27] MEDS ORDERED: BUPIVACAINE 0.5% PF 30 ML VIAL INFIL ONE ×2 (11:16)
[2022-09-27] MEDS ORDERED: HYDROcod/ACETAM 5/325 MG TABLET PO PRN (11:40)
--- NOTE | 2022-09-27 11:44 | OPERATIVE REPORT ---
Operative Report - General Procedure Date: 09/27/22 Planned Procedure: power port placement Pre-Op Diagnosis: lung cancer and need for chemotherapy port Procedure Performed: left subclavian power port placement fluorosocopic guidance Post Op Diagnosis: same - Procedure Note Primary Surgeon: abiodun weaevr Anesthesia Technique: Local, MAC Pathology: none Drain/Tube Type: Other (none) Indications: as above Findings: tip at junction svc and atrium good flush and flow Complications: none - Other Other Information/Narrative: The patient was properly identified brought to the operating room and placed in supine position. Monitored anesthesia care was given as well as IV sedation. A towel roll was placed under the upper back. The patient was prepped and draped in a sterile fashion and given preoperative antibiotics. Local anesthetic was given. The left subclavian vein was easily accessed first pass with a needle. Guide wire placed and position confirmed. A subcutaneous pocket on the left upper chest was created measuring approximately 2-1/2 cm. Portacatheter tubing was then placed subcutaneous up to the venous access point. The portacatheter tubing was then easily placed with the use of a dilator peel-away sheath. The tubing was aspirated and flushed with saline. Under fluoroscopic guidance the tubing was pulled back to the junction of the atrium and the superior vena cava. The portacatheter aspirated and flushed easily assuring good position. The portacatheter was then cut to size and further assembled. The port was secured to subcutaneous tissue with 2 interrupted 4-0 Prolene sutures. The port again was aspirated and flushed now with heparin. Buried interrupted subdermal 3-0 Vicryl sutures were then placed. Skin was closed with buried interrupted and running 4-0 Monocryl subcuticular suture. Dressing was applied. The patient tolerated the procedure well was awakened and brought to recovery in good condition.
[2022-09-27 12:20] VITALS: BP 133/77
--- NOTE | 2022-09-27 14:52 | ANESTHESIA POST OP EVALUATION ---
Anesthesia Post Eval - Post Anesthesia Eval Vitals: Last Vital Signs Temp 36.5 C 09/27/22 11:40 Pulse 82 09/27/22 12:19 Resp 18 09/27/22 12:19 BP 133/77 H 09/27/22 12:19 Pulse Ox 94 09/27/22 12:19 O2 Flow Rate CV Function Including HR & BP: Stable Pain Control: Satisfactory Nausea & Vomiting: Negative Mental Status: Baseline Respiratory Status: Airway Patent Hydration Status: Satisfactory Anesthesia Complications: None
--- NOTE | 2022-09-27 17:58 | XRAY Report ---
PROCEDURE: OR C-Arm Procedure INDICATIONS: Portacath Placement FLUORO TIME: 0:27 min TECHNIQUE: Single intraoperative fluoroscopic image of the chest was obtained. COMPARISON: None. FINDINGS: Single fluoroscopic view of the chest demonstrates a central venous catheter projecting over the righ t medial chest with distal tip terminating near the lower SVC/cavoatrial junction. IMPRESSION: Intraoperative fluoroscopic support for tunneled Port-A-Cath placement. Please see operative note for further details. Reviewed by: Neal Krishna MD on 09/27/2022 5:57 PM PDT Approved by: Neal Krishna MD on 09/27/2022 5:57 PM PDT Station ID: [id number]
== END 2022-09-27 09:50 | disposition home or self-care (01) ==
LOC: SDS 09:49
PROVIDERS: ATTEND Surgery
DX: C34.90 Malignant neoplasm of unspecified part of unspecified bronchus or lung (principal); Z87.891 Personal history of nicotine dependence
CPT/HCPCS: 36561; C1788; J0690; J7120

== ENCOUNTER 2022-10-01 16:37 | Outpatient (CLI) | payer MEDICARE, MEDICAID ==
--- NOTE | 2022-10-01 19:35 | XRAY Report ---
PROCEDURE: Chest 2 View X-Ray INDICATIONS: MALIGNANT PLEURAL EFFUSION TECHNIQUE: 2 views of the chest were acquired. COMPARISON: CT chest 08/29/2022 chest x-ray 06/16/2022 FINDINGS: Surgical changes and devices: Left-sided Port-A-Cath in place Lungs and pleura: Large right hydropneumothorax with air-fluid level partially aerated lung noted. No chest tube. Left lung and pleural space unremarkable. Mediastinum: Mediastinal contours are normal. Heart size is normal. No mediastinal shift Bones and chest wall: No suspicious bony abnormalities. Soft tissues appear unremarkable. IMPRESSION: Large right hydropneumothorax without chest tube Left-sided Port-A-Cath in place Reviewed by: Amish Erickson MD on 10/01/2022 6:34 PM DIGNA Approved by: Amish Erickson MD on 10/01/2022 6:34 PM DIGNA Station ID: [id number]
== END 2022-10-01 16:38 | disposition home or self-care (01) ==
LOC: DI 16:37
PROVIDERS: ATTEND Internal Medicine
DX: J94.8 Other specified pleural conditions (principal)

== ENCOUNTER 2022-10-02 11:31 | Inpatient (IN) | payer MEDICARE, MEDICAID ==
[~2022-10-02 11:31] MED LIST changes: -CEFAZOLIN 2G/50ML 0.9% NS 2 GM/50 ML BAG IV ONE; +iohexoL-300 100 ML VIAL IV ONE
[2022-10-02] MEDS ORDERED: fentaNYL 100 MCG/2 ML VIAL IVP STA (11:43)
[2022-10-02] MEDS ORDERED: PROPOFOL 200 MG/20 ML VIAL IVP STA ×2 (11:43→12:28)
[2022-10-02] MEDS ORDERED: LIDOCAINE 1%-EPI 1:100000 20 ML MDV SUBQ STA (11:43)
[2022-10-02] MEDS ORDERED: SODIUM CHLORIDE 0.9% 1,000 ML IV STA (11:44)
[2022-10-02] MEDS ORDERED: ceFAZolin 1 GM in SODIUM CHLORIDE 0.9% MINIBAG 100 ML IV STA (11:44)
--- NOTE | 2022-10-02 11:46 | ED Physician Documentation ---
PD HPI CHEST PAIN - Stated complaint Stated Complaint: CHEST FLUID - Chief complaint Chief Complaint: Resp - History obtained from History obtained from: Patient - Additional information Additional information: 77-year-old gentleman with CLL and more recent diagnosis of lung adenocarcinoma preparing for treatment, just got a chest port placed a few days ago. He had an outpatient x-ray yesterday showing a large right hydropneumothorax and presents to the emergency department with progressive dyspnea and right-sided chest pain. He reportedly had VATS a couple of months ago for this. x He was subsequently sent to [facility] after admission here in June to have the VATS. Had a catheter in at that time and that stayed in until about 2 weeks ago. His thoracic surgeon is Dr. Arce at [facility]. He states that the catheter was removed about 2 weeks ago. PD PAST MEDICAL HISTORY - Past Medical History Cardiovascular: None Respiratory: Shortness of breath, Other Neuro: None Endocrine/Autoimmune: None GI: None : Renal insuffiency HEENT: Chronic vision loss, Chronic hearing loss Psych: None Musculoskeletal: Osteoarthritis Derm: Other - Past Surgical History Past Surgical History: No General: Other Derm: Other - Present Medications Home Medications: Ambulatory Orders Medication Instructions Recorded Confirmed Naproxen Sodium [Aleve] 220 mg PO PRN PRN 09/24/22 09/27/22 traMADol [Ultram] 50 mg PO QID PRN 09/24/22 09/27/22 Lidocaine/Prilocain 2.5% Cream 5 applic TOP UD #1 each 10/01/22 [Emla 2.5% Cream] Prochlorperazine Maleate 10 mg PO Q6HR PRN #30 tablet 10/01/22 - Allergies Allergies/Adverse Reactions: Allergies Allergy/AdvReac Type Severity Reaction Status Date / Time No Known Drug Allergies Allergy Verified 10/02/22 11:39 - Social History Does the pt smoke?: Yes Smoking Status: Former smoker Does the pt drink ETOH?: Yes Does the pt have substance abuse?: No - Immunizations Immunizations are current?: No - POLST Patient has POLST: No PD ED PE NORMAL - Vitals Vital signs reviewed: Yes (Hypoxic, tachycardic and tachypneic) - General General: Alert and oriented X 3, Other (Thin cachectic gentleman who appears dyspneic) - Cardiac Cardiac: Other (Irregularly irregular) - Respiratory Respiratory: Other (Absent breath sounds on the right) - Abdomen Abdomen: Normal bowel sounds, Soft, Non tender - Extremities Extremities: No edema, No calf tenderness / cord - Neuro Neuro: Alert and oriented X 3, Normal speech Results - Vitals Vitals: Vital Signs - 24 hr 10/02/22 10/02/22 10/02/22 11:35 11:55 12:00 Temperature 36.6 C Heart Rate 108 H 105 H 110 H Respiratory 28 H 22 14 Rate Blood Pressure 117/59 L 115/89 H O2 Saturation 81 L 100 If not protocol : Oxygen Flow, liters/minute 10/02/22 10/02/22 10/02/22 12:26 12:41 13:01 Temperature Heart Rate 111 H 123 H 107 H Respiratory 25 H 26 H 18 Rate Blood Pressure 110/62 100/62 100/62 O2 Saturation 100 99 97 If not protocol 2 2 : Oxygen Flow, liters/minute 10/02/22 10/02/22 10/02/22 13:39 14:29 14:33 Temperature Heart Rate 130 H 110 H 107 H Respiratory 18 18 20 Rate Blood Pressure 125/72 97/48 L 97/64 O2 Saturation 125 H 99 98 If not protocol 2 2 2 : Oxygen Flow, liters/minute 10/02/22 10/02/22 10/02/22 15:06 15:35 16:12 Temperature Heart Rate 111 H 104 H 114 H Respiratory 18 18 18 Rate Blood Pressure 160/136 H 111/84 H 119/60 O2 Saturation 93 99 99 If not protocol 2 2 : Oxygen Flow, liters/minute Oxygen O2 Source Nasal cannula Oxygen Flow Rate 2 - EKG (time done) 1152 EKG releavant findings:: EKG personally interpreted by author of this note. Relevant findings are: Rate: Rate (enter#) (107) Rhythm: Atrial fibrillation [place]: Normal QRS: Low voltage Ischemia: Non specific changes - Labs Labs: Laboratory Tests 10/02/22 10/02/22 10/02/22 11:49 11:49 11:49 WBC 14.0 H RBC 3.93 L Hgb 12.0 L Hct 37.2 L MCV 94.7 H MCH 30.5 MCHC 32.3 RDW 13.6 Plt Count 434 MPV 8.7 Neut # (Auto) 12.5 H Lymph # (Auto) 0.5 L [place] # (Auto) 0.8 Eos # (Auto) 0.0 Baso # (Auto) 0.0 Absolute Nucleated RBC 0.00 Nucleated RBC % 0.0 PT 13.5 H INR 1.2 Sodium 133 L Potassium 3.9 Chloride 97 L Carbon Dioxide 29 Anion Gap 7.0 BUN 25 H Creatinine 1.2 Estimated GFR (MDRD) 59 L Glucose 148 H Calcium 8.4 L SARS-CoV-2 (PCR) 10/02/22 12:50 WBC RBC Hgb Hct MCV MCH MCHC RDW Plt Count MPV Neut # (Auto) Lymph # (Auto) [place] # (Auto) Eos # (Auto) Baso # (Auto) Absolute Nucleated RBC Nucleated RBC % PT INR Sodium Potassium Chloride Carbon Dioxide Anion Gap BUN Creatinine Estimated GFR (MDRD) Glucose Calcium SARS-CoV-2 (PCR) NOT DETECTED Procedures - Chest Tube (location) - Major right 5th middle axillary line Chest tube preparation: Consent obtained, Time out completed, Sterile prep and drape Chest tube location: Right, Intercostal space - enter (5th), Mid axillary line Chest tube anesthesia: Lidocaine Chest tube size: 16 Chest tube return: Connected to suction, Other (Slightly bloody but nonopaque fluid) Chest tube after care: Sutured, Confirmed with xray, Pt tolerated well - Procedural sedation Sedation prep: Informed consent, Time out completed, ASA 3 - severe disease Sedation Medications: propofol (50mg IVP x 2) Mallampati classification: I Patient status during sedation: Responds to tactile Sedation recovery: Recovered uneventfully, Back to baseline Time in sedation (Minutes): 15 PD Medical Decision Making - ED course Complexity details: reviewed old records (Records from hospitalization in June and most recent heme-onc outpatient records) ED course: 77-year-old gentleman with 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 He was attended to expeditiously and appeared stable enough to hold off for conscious sedation for chest tube which we did do. He was sedated and a 16 [place] right chest tube was placed with copious blood-tinged output and improvement in his vital signs. Subsequently I spoke with Dr. Mendez for admission here and she deferred to a facility with cardiothoracic surgery. At 1 PM I discussed the case with Dr. Daniel Arce, the patient's cardiothoracic surgeon who felt there were no further surgical options for him, and a pleurodesis was already trialed and unsuccessful because he was never able to reinflate the lung. Defers to oncology for any further treatment and palliation. I discussed the case with Dr. Mendez again around 1:10 PM. She will come down and assessed the patient and probably call the cardiothoracic surgeon again when she is able. Subsequently Dr. Mendez did call me back at around 4 PM and notes that we actually have Pleurx catheters here and she would be comfortable putting 1 and if he does not have decreased chest tube output over the next few days. Departure - Departure Disposition: 66 [facility] DC/Xfer Clinical Impression: Recurrent pleural effusion, Acute pneumothorax, Lung cancer Condition: Serious
[2022-10-02 11:56] LABS: BASOPHILS % (AUTO) 0.3 %; EOSINOPHILS % (AUTO) 0.1 %; HCT - HEMATOCRIT 37.2 % (42.0-52.0); LYMPHOCYTES # (AUTO) 0.5 10^3/uL (1.5-3.5); LYMPHOCYTES % (AUTO) 3.8 %; MEAN CORPUSCULAR HEMOGLOBIN 30.5 pg (27.0-31.0); MEAN CORPUSCULAR HGB CONC 32.3 g/dL (32.0-36.0); MEAN CORPUSCULAR VOLUME 94.7 fL (80.0-94.0); MEAN PLATELET VOLUME 8.7 fL (7.4-11.4); MONOCYTES # (AUTO) 0.8 10^3/uL (0.0-1.0); MONOCYTES % (AUTO) 5.4 %; NEUTROPHILS # (AUTO) 12.5 10^3/uL (1.5-6.6); NEUTROPHILS % (AUTO) 89.6 %; PLT - PLATELET COUNT 434 10^3/uL (130-450); RED BLOOD COUNT 3.93 10^6/uL (4.70-6.10); RED CELL DISTRIBUTION WIDTH 13.6 % (12.0-15.0)
[2022-10-02 12:03] LABS: INR 1.2 (0.8-1.2); PT - PROTHROMBIN TIME 13.5 secs (9.9-12.6)
[2022-10-02 12:29] LABS: CALCIUM 8.4 mg/dL (8.5-10.3); CREATININE 1.2 mg/dL (0.6-1.2); POTASSIUM 3.9 mmol/L (3.5-5.0)
[2022-10-02] MEDS ORDERED: NAPROXEN 250 MG TABLET PO STA (12:43)
[2022-10-02] MEDS ORDERED: traMADol 50 MG TABLET PO STA (12:43)
--- NOTE | 2022-10-02 12:57 | XRAY Report ---
PROCEDURE: Chest for Line Placement INDICATIONS: post chest tube TECHNIQUE: One view of the chest was acquired. COMPARISON: None. FINDINGS: Surgical changes and devices: Left chest wall port tip projects over the high right atrium. Right-si ded chest tube present. Lungs and pleura: Moderate right-sided hydropneumothorax. Significant atelectasis of the right lung. Mediastinum: Mediastinal contours appear normal. Heart size is normal. Bones and chest wall: No suspicious bony lesions. Overlying soft tissues appear unremarkable. IMPRESSION: Moderate right-sided hydropneumothorax, and significant atelectasis of the right lung. Reviewed by: Vasu Gonzalez on 10/02/2022 12:56 PM PDT Approved by: Vasu Gonzalez on 10/02/2022 12:56 PM PDT Station ID: [id number]
[2022-10-02] MEDS ORDERED: HYDROmorphone 0.5 MG/0.5 ML SYRINGE IVP PRN (17:44)
[2022-10-02] MEDS ORDERED: ONDANSETRON 4 MG/2 ML VIAL IVP PRN (17:44)
[2022-10-02] MEDS ORDERED: SODIUM CHLORIDE FLUSH 0.9% 10 ML SYRINGE IVP PRN (17:44)
--- NOTE | 2022-10-02 18:03 | SURGERY HX AND PHYSICAL(T) ---
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 The patient has had recurrent pleural effusions for the last many months requiring thoracenteses and multiple chest tube placements. In June, the patient was transferred to [facility] and seen by a cardiothoracic surgeon who performed a VATS and pleurodesis. Lung biopsy at that time revealed stage IV non-small cell adenocarcinoma of the right lung. Unfortunately, the patient's pleural effusion did not improve after this procedure, and a Pleurx catheter was placed. His output was low, so the Pleurx was removed approximately 2 weeks ago. The patient states he has had a decreased appetite for the last couple of weeks. He has lost a significant amount of weight over the last 6 months. He initially weighed over 200 pounds, and now weighs approximately 140 pounds.He denies any nausea or vomiting. He does endorse constipation related to his chronic use of tramadol. This is controlled with stool softeners. He denies any blood in his stools or black tarry stools. For the last several days, the patient has felt increasing difficulty with breathing. Today, he states "I was huffing and puffing" and he came to the emergency department where he was found to be in respiratory distress and hemodynamically unstable. This improved markedly with placement of a chest tube. The patient's thoracic surgeon was notified and felt that there were no additional surgical interventions that would be helpful to the patient, and declined transfer. For management of the patient's chest tube, and likely placement of a Pleurx catheter later this week, the patient is being admitted. Notably, the patient was also found to be in atrial fibrillation in the emergency department (rhythm noted to be present on arrival), but the patient is now HD stable with a HR in the low 100s. He denies chest pain or feeling of palpations. - PMH/PSH/Social Hx Does the pt have a hx of MRSA?: No Neurological History: None Eyes, Ears, Nose, Throat: Chronic vision loss, Chronic hearing loss Cardiovascular: None Respiratory: Shortness of breath, Other (lung ca) Skin: Other Endocrine/Autoimmune: None Gastrointestinal: None Urinary: Renal insuffiency Musculoskeletal: Osteoarthritis Psychiatric: None PMH Other: CLL, mutliple myeloma, lung cancer General: Other Cardiothoracic: Other (VATS) Dermatologic: Other PSH Other: PAC placement Smoking Status: Former smoker Does the pt drink ETOH?: Yes Frequency: Occasional Does the pt have substance abuse?: No - Family Hx Family Hx: Other (non contributory) - Home Meds and Allergies Home Medications: Naproxen Sodium [Aleve] 220 mg PO PRN PRN 09/24/22 traMADol [Ultram] 50 mg PO QID PRN 09/24/22 Allergies/Adverse Reactions: Allergies Allergy/AdvReac Type Severity Reaction Status Date / Time No Known Drug Allergies Allergy Verified 10/02/22 11:39 - Review of Systems Constitutional: Other (A complete 10 point review of symptoms is otherwise negative except for that noted in HPI and PMH.) - Vital Signs Heart Rate: 112 Blood Pressure: 121/73 Temperature: 36.6 C Respiratory Rate: 27 O2 Saturation: 99 Weight (kg): 63.503 kg Height: 1.91 m - Physical Exam General Appearance: positive: No acute distress, Alert Eyes Bilatera: positive: Normal inspection, PERRL, EOMI ENT: positive: No signs of dehydration Neck: positive: Trachea midline Respiratory: positive: Chest non-tender, Other (R chest tube in place, to -20cm H20, 900ml serosang fluid out since placement) Cardiovascular: positive: Irregularly irregular, Tachycardia (mild), Other (L SC PAC in place) Peripheral Pulses: positive: 2+ Abdomen: positive: Non-tender, No distention. negative: Guarding, Rebound Skin: positive: Color nml Extremities: positive: Non-tender, Full ROM Neurologic/Psychiatric: positive: Oriented x3 - Patient Review Patient Review: Problems were reviewed with the patient during this visit. Medications were reviewed with the patient during this visit. Allergies were reviewed this patient during this visit. Pertinent Tests Reviewed: All pertitent test for this patient were reviewed. - Assessment & Plan Assessment and Plan: 76-year-old gentleman with 3-week history of shortness of breath, status postthoracentesis, now with persist pleural effusion and new pneumothorax, status post chest tube placement on 05/03/2022. 1. Recurrent right hydropneumothorax -R Lung is partially reexpanded on repeat chest x-ray after chest tube placement. -Chest tube is to continuous wall suction at -20 cm of water, minimal airleak with cough -HD stable since tube placed. -Plan to leave tube to suction overnight. If lung expanded on a.m. chest x-ray, plan to place tube to waterseal tomorrow morning. -Plan for chest tube removal when output has decreased and lung remains expanded when chest tube is to waterseal. If unable to remove chest tube in next 48 hours, will consider placement of PleurX catheter later this week. -I discussed the imaging findings and plan of care with the patient. He voiced understanding, his questions were answered, and he is agreeable to this plan of care. 2. Stage [place] adenocarcinoma of the lung - PAC placed last week, anticipated start of chemo this week - I spoke with the patient's oncologist, Dr. Shaun Barfield, who recommends the patient have a Pleurx placed prior to discharge. He feels the patient will likely improve with chemotherapy, but the Pleurx will allow for drainage of the recurrent effusion as long as needed without need for readmission. Patient was supposed to start chemotherapy later this week, by Dr. Barfield feels the best course of action is to delay this until after he is discharged. 3.Atrial fibrillation The patient's never been noted to be in atrial fibrillation in the past, but was noted to be in this rhythm at the time of presentation today. I will obtain a CT angiogram of the chest, TSH, and troponin I will start the patient on metoprolol 25 mg p.o. twice daily I will consult medicine for further recommendations. Given the late time in the day, they will not see him until tomorrow. I have spoken with Dr. Llanos of internal medicine appreciate her input and guidance. 3. CLL, BPH, hypertension, hyperlipidemia -home meds restarted SCDs for DVT prophylaxis Regular diet Full code The patient has been admitted as inpatient to floor.
[2022-10-02] MEDS ORDERED: PROCHLORPERAZINE 5 MG TABLET PO PRN (18:21)
[2022-10-02] MEDS ORDERED: iohexoL-300 100 ML VIAL ONE (18:42)
[2022-10-02] MEDS: NAPROXEN 250 MG TABLET PO PRN (19:49)
[2022-10-02] MEDS: traMADol 50 MG TABLET PO PRN (19:49)
[2022-10-02] MEDS ORDERED: ZINC OXIDE 20% OINT 30 GM TUBE TOP PRN (19:52)
[2022-10-02] MEDS: METOPROLOL TARTRATE 25 MG TABLET PO SCH (21:06)
--- NOTE | 2022-10-02 23:24 | CT Report ---
PROCEDURE: ANGIO CHEST W/WO INDICATIONS: r/o PE CONTRAST: omni 300 100ml TECHNIQUE: After the administration of intravenous contrast, 2 mm axial images were acquired from the pulmonary apices to the posterior costophrenic angles during the arterial phase. In addition, 1 mm lung kernel and 5 mm soft tissue kernel reconstructions were performed. 3-dimensional coronal oblique maximum int ensity projection (MIP) reformats, 8 mm axial MIP, and 5 mm coronal and sagittal MPR reformats were t hen performed through the thorax. For radiation dose reduction, the following was used: automated exp osure control, adjustment of mA and/or kV according to patient size. COMPARISON: CT chest 08/27/2022 FINDINGS: Image quality: Excellent. Pulmonary arteries: Pulmonary arteries are normal in size, and demonstrate no intraluminal filling d efects to suggest central pulmonary embolism. Evaluation of subsegmental pulmonary arteries in the ri ght lung limited due to suboptimal contrast opacification. Lower Neck: No lymphadenopathy by size criteria. Thyroid: Visualized thyroid demonstrates no discrete nodules. Axillae: No lymphadenopathy by size criteria. Chest Wall: Unremarkable. Bones: Visualized osseous structures demonstrate no suspicious lesions. Lungs and Airways: There is increased consolidation and atelectasis within the right lower lobe. Increased filling defects are demonstrated within the right mainstem bronchus extending into the bron chus intermedius as well as the right lower and middle lobe bronchi. There is a small amount of eccen tric mucus in the left mainstem bronchus. The left lung demonstrates mild dependent atelectasis. Pleura: Right chest tube is similar in position, with the tip there is a medially in the right lung b ase. There is a persistent large right hydropneumothorax with interval decrease in the fluid componen t with increase in the gas component. No associated leftward midline shift to suggest tension. Heart: Heart size is normal. No pericardial effusion. Thoracic Vessels: The aorta and pulmonary arteries are normal in size. Mediastinum and [place]: No lymphadenopathy by size criteria. Esophagus: No wall thickening. No hiatal hernia. Abdomen: Visualized upper abdomen redemonstrates mild thickening of the adrenal glands bilaterally. IMPRESSION: 1. No evidence of central pulmonary embolism. Evaluation of subsegmental branches in the right lung l imited due to suboptimal contrast opacification. 2. Large right hydropneumothorax redemonstrated without evidence of tension. There is interval decrea se in the fluid component with corresponding increase in the gas component. Right chest tube appears similar in position. 3. Slightly increased consolidation and atelectasis within the right lung including likely postobstru ctive atelectasis due to increased mucus within the right mainstem bronchus and more distal bronchial structures. The findings suggest sequelae of aspiration. Reviewed by: Elder Brian MD on 10/02/2022 11:35 PM PDT Approved by: Elder Brian MD on 10/02/2022 11:35 PM PDT Station ID: [id number]
[2022-10-02] MEDS: ACETAMINOPHEN 325 MG TABLET PO PRN (23:38)
[2022-10-02] MEDS: SODIUM CHLORIDE FLUSH 0.9% 10 ML SYRINGE IVP SCH (23:39)
[2022-10-03 05:31] LABS: HGB - HEMOGLOBIN 10.7 g/dL (14.0-18.0); MEAN CORPUSCULAR HEMOGLOBIN 30.2 pg (27.0-31.0); MEAN CORPUSCULAR HGB CONC 31.5 g/dL (32.0-36.0); MEAN PLATELET VOLUME 8.6 fL (7.4-11.4); RED BLOOD COUNT 3.54 10^6/uL (4.70-6.10); RED CELL DISTRIBUTION WIDTH 13.9 % (12.0-15.0); WHITE BLOOD COUNT 11.8 x10^3/uL (4.8-10.8)
[2022-10-03] MEDS: traMADol 50 MG TABLET PO PRN ×3 (05:41→18:38)
[2022-10-03] MEDS: NAPROXEN 250 MG TABLET PO PRN ×2 (05:41→14:21)
[2022-10-03 05:42] LABS: CALCIUM 8.4 mg/dL (8.5-10.3); CREATININE 1.1 mg/dL (0.6-1.2); POTASSIUM 4.4 mmol/L (3.5-5.0)
--- NOTE | 2022-10-03 07:06 | PROVIDER PROGRESS NOTE ---
Subjective - General Admit Date: 10/02/22 Procedure Date: 10/02/22 Post Op Days: 1 Procedure Performed: Right chest tube placement - Review of Systems Drain Type: R chest tube Drain Output Description: serous Approximate mls Output: 300mL since 1700 yesterday - Other Other Information/Narrative: Patient states he is feeling much better this morning. He is breathing and speaking without difficulty. He is not needing oxygen. He has some pain at the chest tube insertion site, but this is well controlled with his home pain medication regimen. He denies f/c, chest pain, n/v. No acute events overnight. Objective - Patient Data Reviewed Vital Signs: Yes Vital Signs: Vital Signs x48h Temp Pulse Resp BP Pulse Ox 10/03/22 05:41 36.8 C 84 18 100/55 L 96 10/03/22 00:00 36.6 C 89 18 103/56 L 94 Weight: Weight 10/01/22 10/02/22 10/03/22 23:59 23:59 23:59 Weight (kg) 62.5 kg 61.5 kg Intake & Output: Intake and Output Totals x24h 10/01/22 10/02/22 10/03/22 23:59 23:59 23:59 Intake Total 1100 400 Output Total 460 520 Balance 640 -120 - Lab Results Lab Results: 10/03/22 05:17 10/03/22 05:17 Other Lab Results: Lab Results x24hrs 10/03/22 10/03/22 10/02/22 Range/Units 05:17 05:17 18:57 WBC 11.8 H (4.8-10.8) x10^3/uL RBC 3.54 L (4.70-6.10) 10^6/uL Hgb 10.7 L (14.0-18.0) g/dL Hct 34.0 L (42.0-52.0) % MCV 96.0 H (80.0-94.0) fL MCH 30.2 (27.0-31.0) pg MCHC 31.5 L (32.0-36.0) g/dL RDW 13.9 (12.0-15.0) % Plt Count 405 (130-450) 10^3/uL MPV 8.6 (7.4-11.4) fL Neut # (Auto) (1.5-6.6) 10^3/uL Lymph # (Auto) (1.5-3.5) 10^3/uL Carver # (Auto) (0.0-1.0) 10^3/uL Eos # (Auto) (0.0-0.7) 10^3/uL Baso # (Auto) (0.0-0.1) 10^3/uL Absolute Nucleated RBC x10^3/uL Nucleated RBC % /100WBC PT (9.9-12.6) secs INR (0.8-1.2) Sodium 139 (135-145) mmol/L Potassium 4.4 (3.5-5.0) mmol/L Chloride 102 (101-111) mmol/L Carbon Dioxide 31 (21-32) mmol/L Anion Gap 6.0 (6-13) BUN 24 H (6-20) mg/dL Creatinine 1.1 (0.6-1.2) mg/dL Estimated GFR (MDRD) 65 L (>89) Glucose 109 H (70-100) mg/dL Calcium 8.4 L (8.5-10.3) mg/dL Troponin I High Sens (2.3-19.7) ng/L TSH 1.36 (0.34-5.60) uIU/mL SARS-CoV-2 (PCR) 10/02/22 10/02/22 10/02/22 Range/Units 18:57 12:50 11:49 WBC (4.8-10.8) x10^3/uL RBC (4.70-6.10) 10^6/uL Hgb (14.0-18.0) g/dL Hct (42.0-52.0) % MCV (80.0-94.0) fL MCH (27.0-31.0) pg MCHC (32.0-36.0) g/dL RDW (12.0-15.0) % Plt Count (130-450) 10^3/uL MPV (7.4-11.4) fL Neut # (Auto) (1.5-6.6) 10^3/uL Lymph # (Auto) (1.5-3.5) 10^3/uL Carver # (Auto) (0.0-1.0) 10^3/uL Eos # (Auto) (0.0-0.7) 10^3/uL Baso # (Auto) (0.0-0.1) 10^3/uL Absolute Nucleated RBC x10^3/uL Nucleated RBC % /100WBC PT (9.9-12.6) secs INR (0.8-1.2) Sodium 133 L (135-145) mmol/L Potassium 3.9 (3.5-5.0) mmol/L Chloride 97 L (101-111) mmol/L Carbon Dioxide 29 (21-32) mmol/L Anion Gap 7.0 (6-13) BUN 25 H (6-20) mg/dL Creatinine 1.2 (0.6-1.2) mg/dL Estimated GFR (MDRD) 59 L (>89) Glucose 148 H (70-100) mg/dL Calcium 8.4 L (8.5-10.3) mg/dL Troponin I High Sens 8.9 (2.3-19.7) ng/L TSH (0.34-5.60) uIU/mL SARS-CoV-2 (PCR) NOT DETECTED 10/02/22 10/02/22 Range/Units 11:49 11:49 WBC 14.0 H (4.8-10.8) x10^3/uL RBC 3.93 L (4.70-6.10) 10^6/uL Hgb 12.0 L (14.0-18.0) g/dL Hct 37.2 L (42.0-52.0) % MCV 94.7 H (80.0-94.0) fL MCH 30.5 (27.0-31.0) pg MCHC 32.3 (32.0-36.0) g/dL RDW 13.6 (12.0-15.0) % Plt Count 434 (130-450) 10^3/uL MPV 8.7 (7.4-11.4) fL Neut # (Auto) 12.5 H (1.5-6.6) 10^3/uL Lymph # (Auto) 0.5 L (1.5-3.5) 10^3/uL Carver # (Auto) 0.8 (0.0-1.0) 10^3/uL Eos # (Auto) 0.0 (0.0-0.7) 10^3/uL Baso # (Auto) 0.0 (0.0-0.1) 10^3/uL Absolute Nucleated RBC 0.00 x10^3/uL Nucleated RBC % 0.0 /100WBC PT 13.5 H (9.9-12.6) secs INR 1.2 (0.8-1.2) Sodium (135-145) mmol/L Potassium (3.5-5.0) mmol/L Chloride (101-111) mmol/L Carbon Dioxide (21-32) mmol/L Anion Gap (6-13) BUN (6-20) mg/dL Creatinine (0.6-1.2) mg/dL Estimated GFR (MDRD) (>89) Glucose (70-100) mg/dL Calcium (8.5-10.3) mg/dL Troponin I High Sens (2.3-19.7) ng/L TSH (0.34-5.60) uIU/mL SARS-CoV-2 (PCR) - Imaging Results Radiology Imaging: positive: Final report received Imaging Results Comments: CTA negative for PE - Current Medications Current Medications: Current Medications Generic Name Dose Route Start Last Admin Trade Name Freq PRN Reason Stop Dose Admin Acetaminophen 650 mg 10/02/22 17:44 10/02/22 23:38 Acetaminophen 325 Mg Tablet PO 650 mg Q4HR PRN Administration Pain 1 to 4, or Fever Metoprolol Tartrate 25 mg 10/02/22 21:00 10/02/22 21:06 Metoprolol Tartrate 25 Mg Tablet PO 25 mg BID AYANNA Administration Naproxen 250 mg 10/02/22 18:20 10/03/22 05:41 Naproxen 250 Mg Tablet PO 250 mg TID PRN Administration NEEDED PER PROVIDER ORDERS Sodium Chloride 10 ml 10/03/22 01:00 10/02/22 23:39 Sodium Chloride Flush 0.9% 10 Ml Syringe IVP 10 ml 0100,0900,1700 AYANNA Administration Tramadol HCl 50 mg 10/02/22 17:52 10/03/22 05:41 Tramadol 50 Mg Tablet PO 50 mg QID PRN Administration Moderate Pain (Level 4-6) - Physical Exam Wound/Incisions: positive: Drainage (serous) General Appearance: positive: No acute distress, Alert Eyes Bilateral: positive: PERRL, EOMI ENT: positive: No signs of dehydration Neck: positive: Trachea midline Respiratory: positive: No respiratory distress, Other (R chest tube in place, 1+ air leak with cough) Cardiovascular: positive: Irregularly irregular. negative: Tachycardia Abdomen: positive: Non-tender, No distention. negative: Guarding, Rebound Skin: positive: Color nml, No rash Extremities: positive: Non-tender Neurologic/Psychiatric: positive: Oriented x3 Impression/Plan - Problem List Problem List: 77-year-old gentleman with: 1. Recurrent right hydropneumothorax -R Lung is partially reexpanded on repeat chest x-ray after chest tube placement. -Chest tube is to continuous wall suction at -20 cm of water, 1+ airleak with cough -HD stable since tube placed. -If lung expanded on a.m. chest x-ray, plan to place tube to waterseal today. -Likely placement of Pleurx catheter tomorrow. -I discussed the imaging findings and plan of care with the patient. He voiced understanding, his questions were answered, and he is agreeable to this plan of care. 2. Stage Edmond adenocarcinoma of the lung - PAC placed last week, anticipated start of chemo this week - I spoke with the patient's oncologist, Dr. Shaun Barfield, who recommends the patient have a Pleurx placed prior to discharge. He feels the patient will likely improve with chemotherapy, but the Pleurx will allow for drainage of the recurrent effusion as long as needed without need for readmission. Patient was supposed to start chemotherapy later this week, by Dr. Barfield feels the best course of action is to delay this until after he is discharged. 3.Atrial fibrillation The patient's never been noted to be in atrial fibrillation in the past, but was noted to be in this rhythm at the time of presentation to ED yesterday. CT angiogram negative for PE, TSH, and troponin are wnl I have started metoprolol 25 mg p.o. twice daily Medicine consult for a fib recommendations. I have spoken with Dr. Llanos of internal medicine appreciate her input and guidance. 3. CLL, BPH, hypertension, hyperlipidemia -home meds restarted SCDs for DVT prophylaxis Regular diet Full code The patient has been admitted as inpatient to floor. He will need home fox for Pleurx catheter teaching and supplies. Plan for every other day drainage. SW consult ordered. I would like him to follow up with me in clinic in 2 weeks.
[2022-10-03] MEDS: SODIUM CHLORIDE FLUSH 0.9% 10 ML SYRINGE IVP SCH ×2 (08:43→16:32)
[2022-10-03] MEDS: METOPROLOL TARTRATE 25 MG TABLET PO SCH ×2 (08:43→21:50)
--- NOTE | 2022-10-03 09:40 | XRAY Report ---
PROCEDURE: Chest 1 View X-Ray INDICATIONS: f/o r hydropneumothorax TECHNIQUE: One view of the chest was acquired. COMPARISON: CT chest 10/02/2022 FINDINGS: Surgical changes and devices: Right chest tube is present projecting over the right lower lobe. Lungs and pleura: There is a persistent appearance of right hydropneumothorax relatively with mild d ecreased right basilar opacity, compared to prior exam. Mediastinum: Mediastinal contours appear normal. Heart size is enlarged. Bones and chest wall: No suspicious bony lesions. Overlying soft tissues appear unremarkable. IMPRESSION: Right chest tube with persistent hydropneumothorax. Slight decreased opacity is noted in the right ba se possibly related to decreased fluid. Reviewed by: Jade Enciso MD on 10/03/2022 9:38 AM PDT Approved by: Jade Enciso MD on 10/03/2022 9:38 AM PDT Station ID: [id number]
[2022-10-03] MEDS: LIDOCAINE/PRILOCAINE 2.5% CREAM 5 GM TUBE TOP SCH (10:31)
--- NOTE | 2022-10-03 12:48 | PHARMACY PROGRESS NOTE ---
- Best Possible Medication History Admit Date and Time: 10/02/22 9350 Processed by: Pharmacy Medication History completed: Yes Patient Interview: Completed Secondary Source(s): Pharmacy records As the person ultimately responsible for medication therapy, providers are able to order a medication from an existing home medication list in [facility] via the "Reconcile Routine" prior to Confirmation of that medication by application support manager. Such practice is discouraged except when the physician, in their clinical judgment, deems that a medical need exists for a medication without regard to previous use.
[2022-10-03] MEDS ORDERED: iohexoL-300 100 ML VIAL IV ONE (16:10)
[2022-10-03] MEDS: ACETAMINOPHEN 325 MG TABLET PO PRN (18:38)
--- NOTE | 2022-10-03 21:00 | CONSULTATION NOTE ---
Referring Provider Name of Referring Provider:: Dr. Mendez Consult Date: 10/03/22 Chief Complaint - Chief Complaint Chief Complaint: new onset atrial fib History of Present Illness - Admitted From Admitted From:: home - History Obtained From Records Reviewed: [facility] History obtained from: Dr. Mendez Exam Limitations: none - History of Present Illness HPI Comment/Other: This is a gentleman who has chronic lower back pain with occasional back spasms, sciatica, CLL since May 2019, and multiple myeloma on labs since November 2019. The former is being monitored, and the latter was treated with Revlimid without Velcade since December 2021. He subsequently developed a right lung collapse and pleural effusion for months. He then required chest tube placement in June 2022. He underwent a VATS procedure and pleurodesis and biopsy of the lung pleura was positive for lung adenocarcinoma. Is considered a stage Edmond. Complication of this lung cancer has also been hypercalcemia that is being monitored. And spite of the pleural effusion, CAT scan imaging shows him to have relatively low tumor burden. And a port was inserted September 27 with the plan of having therapy with carboplatinum, pemetrexed, and pembrolizumab. Chemo is supposed to start in a few weeks once he is healed from having his chest tube removed for the pleural effusion. Chest tube was removed a couple of weeks ago. He then developed shortness of breath and pleuritic chest pain in the right side of his chest. It started a few days before he was seen in the emergency room. He had a chest x-ray done October 01. The new left-sided Port-A-Cath was in place. And he had a large right hydropneumothorax and no chest tube. He was asked to go to the emergency room and he was seen October 02. Continue to have the same x-ray findings and general surgery was consulted. He also had a chest tube placed in the emergency room. This improved his shortness of breath and chest pain tremendously. But while this was being done he was found to be in new onset atrial fibrillation. He has no previous history of atrial fibrillation. An echo in June 2022 showed sinus tachycardia, normal ejection fraction, normal right ventricular size, and normal right and left atrial sizes. He had a second echocardiogram done in August 2022 for a postchemotherapy cardiac assessment. Underlying rhythm was sinus, premature atrial contractions evident. Systolic function was again normal at 55 to 60%. Sigmoidal shaped septum with focal hypertrophy of the basal septum. Right ventricle was again normal. Atrial sizes were again normal. Although he has moderate aortic valve sclerosis there is no aortic stenosis or regurgitation. It is unclear when he started being in atrial fibrillation. The patient gives a history of intermittent shortness of breath, chest discomfort that is been ongoing for weeks in association with the pleural effusion and the lung cancer diagnosis. These 2 previous echoes did not show atrial fibrillation. But we felt uncomfortable cardioverting him immediately. And assess the patient has been rate controlled with metoprolol at my suggestion. General surgery is asked me to see the patient to monitor his atrial fibrillation and adjust medications through the course of this acute episode of care for chest tube placement, and management of his pleural fluid. I did asked that a troponin be done when he was seen in the ER. Troponin was 8.9. I also a sked for a TSH and it was 3.38 with a free T4 of 1.07. CT of chest was done to make sure he was not having a pulmonary emboli and none were present. He has increased consolidation and atelectasis within the right lower lobe. Increased filling defects demonstrated within the right mainstem bronchus extending into the bronchus intermedius as well as the right lower lobe and middle lobe bronchi. There is a small amount of eccentric mucus in the left mainstem bronchus. Right chest tube was now in place. He had a persistent large right hydropneumothorax with interval decrease in the fluid component and increased in the gas component. No associated left mid shift. History - Past Medical History Cardiovascular: reports: None Respiratory: reports: Shortness of breath, Other Neuro: reports: None Endocrine/Autoimmune: reports: None GI: reports: None : reports: Renal insuffiency HEENT: reports: Chronic vision loss, Chronic hearing loss Psych: reports: None Musculoskeletal: reports: Osteoarthritis, Chronic back pain (From 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 multiple myeloma and lower T-spine and upper L-spine) Derm: reports: Other MRSA Hx?: No Other Past Medical History: CLL, mutliple myeloma, lung cancer, pleural effusion - Past Surgical History General: reports: Other Cardiovascular: reports: Other (VATS and chest tube placements) Derm: reports: Other Other past surgical history: PAC placement - Family & Social History Family History: Mother: (there were six children, 4 alive, one brother has "bone cancer"), Father: , Sister: , Brother: Living arrangement: At home Living Situation: Alone Social History Notes: he has been 4 times, does have son whom he does not want involved in his care, [place], he does stay in contact with his daughter Abigail, and sees his granddaughter Delmi who is the apple of his eye. He is very much estranged from his son. He also has a daughter in [place], whom he is in contact with whom he finds most supportive is his stepdaughter Meg, who is also the executor for his will. He would also like her to be his healthcare DPOA, as well as to finish putting his affairs in order.Patient has had a long and colorful life, has been in construction, has been able to go around the world, reports he is been in movies, and feels like he has lived a good life. He does not perceive himself as depressed. He has some very good friends, who are quite supportive and will continue to support him through his current process. He does though live alone, has had more trouble meeting his care needs, mostly this is related to his dyspnea and progressive weakness. He has had functional decline. - Substance History Use: Uses substance without health or social issues: NONE - POLST Patient has POLST: No POLST Status: DNR (Advance care directive in appropriate tab in EMR) Meds/Allgy - Home Medications Home Medications: Ambulatory Orders Medication Instructions Recorded Confirmed Naproxen Sodium [Aleve] 220 mg PO QID PRN 09/24/22 10/03/22 traMADol [Ultram] 50 mg PO QID PRN 09/24/22 10/03/22 Lidocaine/Prilocain 2.5% Cream 5 applic TOP UD #1 each 10/01/22 10/03/22 [Emla 2.5% Cream] Acyclovir 1 tab PO BID 10/03/22 10/03/22 Albuterol Sulfate [Proventil Hfa] 2 puffs PO QID PRN 10/03/22 10/03/22 Multivitamin W/Minerals [Theragran 1 tab PO DAILY 10/03/22 10/03/22 M] - Allergies Allergies/Adverse Reactions: Allergies Allergy/AdvReac Type Severity Reaction Status Date / Time No Known Drug Allergies Allergy Verified 10/02/22 11:39 Review of Systems - Constitutional Constitutional: reports: Fatigue, Weakness, Poor appetite, Weight loss - Eyes Eyes: reports: Field loss. denies: Pain, Irritation - Ears, Nose & Throat Ears, Nose & Throat: reports: Ear pain, Hearing loss, Hearing aids - Cardiovascular Cariovascular: reports: Irregular heart rate, Chest pain, Exertional dyspnea, Decr. exercise tolerance, Other (Sleeps in a recliner) - Respiratory Respiratory: reports: Cough, Sputum production, Wheezing, SOB at rest, SOB with exertion - Gastrointestinal Gastrointestinal: reports: Bloating, Poor appetite. denies: Abdominal pain, Abdominal distention, Constipation, Diarrhea - Genitourinary Genitourinary: reports: Urgency, Nocturia. denies: Dysuria, Frequency, Hematuria - Musculoskeletal Musculoskeletal: reports: Back pain, Muscle aches. denies: Muscle pain, Gout, Joint pain - Integumentary Integumentary: denies: Rash, Pruritis - Neurological Neurological: reports: General weakness. denies: Focal weakness, Headache, Dizziness - Psychiatric Psychiatric: denies: Depression, Anxiety, Suicidal - Endocrine Endocrine: reports: Intolerance to cold. denies: Polyuria, Polydypsia, Polyphagia - Hematologic/Lymphatic Hematologic/Lymphatic: reports: Anemia. denies: Bruising, Petechiae Exam - Vital Signs Reviewed Vital Signs: Yes Vital Signs: Vital Signs x48h Temp Pulse Resp BP Pulse Ox 10/03/22 16:10 37.0 C 89 18 95/51 L 96 10/03/22 13:00 36.6 C 86 18 101/46 L 97 - Physical Exam General Appearance: positive: No acute distress, Alert, Other (Well-groomed, hair slipped back, arms above his head in a relaxed posture as he lays in bed to watch TV.Very thin.) Eyes Bilateral: positive: PERRL, EOMI ENT: positive: No signs of dehydration, Other (Bilateral temporal wasting, prominent zygomatic arches) Neck: positive: No JVD. negative: Stiff neck Respiratory: positive: No respiratory distress, Rhonchi (Right lung, chest tube in place) Cardiovascular: positive: Regular rate & rhythm (His admission EKG confirmed atrial fibrillation. I am hearing a regular rate and rhythm.), Systolic murmur Abdomen: positive: Non-tender, No organomegaly, Nml bowel sounds, No distention Skin: positive: Warm, Dry Extremities: positive: Full ROM, No pedal edema Neurologic/Psychiatric: positive: Oriented x3, CN's nml (2-12), Motor nml Conclusion/Plan - Problem List (1) New onset atrial fibrillation Conclusion/Plan: At this time my goal is rate control. Once he is done with his procedures with regards to his pleural effusion, chest tube, etc. I can start him on anticoagulation. General surgery and I have discussed the timing of anticoagulation. We did discuss starting Lovenox tonight but he is due to have a Pleurx catheter placement tomorrow. However, I am hearing a sinus rhythm on my exam tonight. I do not really feel the need to repeat an EKG at this late hour, and will ask an EKG be done tomorrow morning. The work-up for atrial fibrillation is already been done in that he has had 2 echocardiograms recently. I do not feel the need to repeat them. I do think that the source of his atrial fibrillation is most likely cardiac irritation fro m pleural effusions. He shows no evidence of ischemia, thyroid disease, PE, valvular heart disease, or dilated atria. If the EKG confirms sinus rhythm tomorrow, as still may anticoagulate him for a month. He may be having paroxysmal atrial fibrillation. (2) Recurrent pleural effusion Conclusion/Plan: Due to adenocarcinoma. In palliative care notes there is suggestion that there may be a GI source. In any case, he is being followed closely by oncology and treatment will be instituted and followed by them. - Lab Results Lab results reviewed: Yes Fish Bones: 10/03/22 05:17 10/03/22 05:17 - Diagnostic Imaging Results Diagnostic Imaging Results: positive: Final report reviewed
[2022-10-04] MEDS: SODIUM CHLORIDE FLUSH 0.9% 10 ML SYRINGE IVP SCH ×3 (01:00→16:35)
[2022-10-04] MEDS: traMADol 50 MG TABLET PO PRN ×3 (04:24→17:41)
[2022-10-04] MEDS: NAPROXEN 250 MG TABLET PO PRN ×2 (04:24→17:41)
[2022-10-04] MEDS: METOPROLOL TARTRATE 25 MG TABLET PO SCH ×2 (08:34→20:33)
--- NOTE | 2022-10-04 10:06 | XRAY Report ---
PROCEDURE: Chest 1 View X-Ray INDICATIONS: F/U HYDROPNEUMOTHORAX TECHNIQUE: One view of the chest was acquired. COMPARISON: None. FINDINGS: Surgical changes and devices: Right sided chest tube and left-sided central venous catheter remain i n stable and unchanged position. Lungs and pleura: Since the prior examination the moderate sized right pneumothorax remains a relati vely stable appearance from prior examination. There is appear to be less pleural effusion at the pat ient's right lung base. Right lung consolidation remains stable. Mediastinum: Mediastinal contours appear normal. Heart size is normal. Bones and chest wall: No suspicious bony lesions. Overlying soft tissues appear unremarkable. IMPRESSION: 1. Stable appearance of moderate sized right pneumothorax. 2. Improvement in the amount of pleural fluid present at the patient's right lung base. 3. Stable consolidation of the right lung. Reviewed by: Rogelio Bennett MD on 10/04/2022 10:05 AM PDT Approved by: Rogelio Bennett MD on 10/04/2022 10:05 AM PDT Station ID: [id number]
[2022-10-04] MEDS: LIDOCAINE/PRILOCAINE 2.5% CREAM 5 GM TUBE TOP SCH (11:31)
[2022-10-04] MEDS: ACETAMINOPHEN 325 MG TABLET PO PRN (11:35)
--- NOTE | 2022-10-04 12:46 | PROVIDER PROGRESS NOTE ---
Subjective - Prog Note Date Prog Note Date: 10/04/22 Prog Note Time: 12:45 - Subjective Subjective: Patient states that there is no shortness of breath, palpitations. EKG confirms that he converted to sinus between admission and yesterday. General surgery is still working with him on his Pleurx catheter and the outpatient management of the catheter with his supplies. Current Medications - Current Medications Current Medications: Active Medications Acetaminophen (Acetaminophen 325 Mg Tablet) 650 mg PO Q4HR PRN PRN Reason: Pain 1 to 4, or Fever Last Admin: 10/04/22 11:35 Dose: 650 mg Hydromorphone HCl (Hydromorphone 0.5 Mg/0.5 Ml Syringe) 0.5 mg IVP Q2H PRN PRN Reason: Pain 8 to 10 Lidocaine/Prilocaine (Lidocaine/Prilocaine 2.5% Cream 5 Gm Tube) 5 applic TOP UD [facility] Last Admin: 10/04/22 11:31 Dose: Not Given Metoprolol Tartrate (Metoprolol Tartrate 25 Mg Tablet) 25 mg PO BID [facility] Last Admin: 10/04/22 08:34 Dose: 25 mg Multi-Ingredient Ointment (Zinc Oxide 20% Oint 30 Gm Tube) 1 applic TOP PRN PRN PRN Reason: Skin Care Naproxen (Naproxen 250 Mg Tablet) 250 mg PO TID PRN PRN Reason: NEEDED PER PROVIDER ORDERS Last Admin: 10/04/22 04:24 Dose: 250 mg Ondansetron HCl (Ondansetron 4 Mg/2 Ml Vial) 4 mg IVP Q6HR PRN PRN Reason: Nausea / Vomiting Prochlorperazine Maleate (Prochlorperazine 5 Mg Tablet) 10 mg PO Q6HR PRN PRN Reason: Nausea / Vomiting Sodium Chloride (Sodium Chloride Flush 0.9% 10 Ml Syringe) 10 ml IVP PRN PRN PRN Reason: NEEDED PER PROVIDER ORDERS Sodium Chloride (Sodium Chloride Flush 0.9% 10 Ml Syringe) 10 ml IVP 0100,0900,1700 [facility] Last Admin: 10/04/22 08:37 Dose: 10 ml Tramadol HCl (Tramadol 50 Mg Tablet) 50 mg PO QID PRN PRN Reason: Moderate Pain (Level 4-6) Last Admin: 10/04/22 11:08 Dose: 50 mg Naproxen Sodium [Aleve] 220 mg PO QID PRN 09/24/22 traMADol [Ultram] 50 mg PO QID PRN 09/24/22 Acyclovir 1 tab PO BID 10/03/22 Albuterol Sulfate [Proventil Hfa] 2 puffs PO QID PRN 10/03/22 Multivitamin W/Minerals [Theragran M] 1 tab PO DAILY 10/03/22 Objective - Vital Signs/Intake & Output Reviewed Vital Signs: Yes Vital Signs: Vital Signs x48h Temp Pulse Resp BP BP Pulse Ox 10/04/22 08:41 36.6 C 87 17 113/55 L 94 10/04/22 08:34 115/61 10/04/22 05:00 36.6 C 77 16 108/64 97 Intake & Output: Intake & Output 10/01/22 10/02/22 10/03/22 10/04/22 23:59 23:59 23:59 23:59 Intake Total 1100 1600 300 Output Total 460 3150 800 Balance 640 -1550 -500 - Objective General Appearance: positive: Alert, Mild distress (From pain with the chest tube. But he feels like he is comfortable and abdomen, other joints, back), Other (Thin white male, alert, interactive) Eyes Bilateral: positive: PERRL, EOMI ENT: positive: No signs of dehydration Neck: positive: No JVD. negative: Stiff neck Respiratory: positive: No respiratory distress, Rhonchi (Right lung). negative: Wheezes, Rales Cardiovascular: positive: Regular rate & rhythm, Systolic murmur Abdomen: positive: Non-tender, No organomegaly, Nml bowel sounds, No distention, Other (Scaphoid. Nutrition services comments that this gentleman has lost a lot of weight in the last 2 months) Skin: positive: Warm, Dry Extremities: positive: Full ROM, No pedal edema Neurologic/Psychiatric: positive: Oriented x3, CN's nml (2-12), Motor nml - Lab Results Fish Bones: 10/03/22 05:17 10/03/22 05:17 Assessment/Plan - Problem List (1) New onset atrial fibrillation Impression: In the emergency room he was identified as having new onset atrial fibrillation. But this is in context of a gentleman who has recurrent pleural effusions. He is already had a VATS and Pleurx catheter and that was unsuccessful. Pleural effusion has recurred. It is in that context with the recurrence of the pleural effusion that atrial fibrillation was identified. In looking at all of his data from previous admissions and ER evaluations he is always been in sinus. It is unclear when this patient went into atrial fibrillation. It is also unclear if he goes in and out. Plan: I would start him on anticoagulation in the form of Eliquis. Continue the anticoagulation and the time it takes says to do an event monitor to establish if he is going in and out of atrial fibrillation. If the month goes by and there is no A-fib, we can stop the anticoagulation. He should be followed up with his primary care provider to follow-up on this at discharge. (2) Recurrent pleural effusion Impression: Due to lung cancer. He is getting ready to start chemotherapy next week once the question of this pleural effusion is addressed.
[2022-10-04] MEDS ORDERED: LIDOCAINE MPF 2%-EPI 1:200000 20 ML VIAL ONE (14:13)
[2022-10-04] MEDS ORDERED: BUPIVACAINE 0.5% PF 30 ML VIAL ONE (14:13)
--- NOTE | 2022-10-04 14:20 | PROVIDER PROGRESS NOTE ---
Subjective - General Admit Date: 10/02/22 Procedure Date: 10/02/22 Post Op Days: 2 Procedure Performed: Right chest tube placement - Review of Systems Wound/Incisions: positive: Drainage (serous) Drain Type: R chest tube Drain Output Description: serous Approximate mls Output: 200mL out in last 24 hours - Other Other Information/Narrative: Patient is in good spirits. He feels like his breathing is doing well. He denies chest pain, SOA, f/c. He tolerated a regular diet yesterday without issue, and is currently NPO for his procedure today. Objective - Patient Data Reviewed Vital Signs: Yes Vital Signs: Vital Signs x48h Temp Pulse Resp BP BP Pulse Ox 10/04/22 13:00 36.4 C L 74 17 99/53 L 80 L 10/04/22 08:41 36.6 C 87 17 113/55 L 94 10/04/22 08:34 115/61 Weight: Weight 10/02/22 10/03/22 10/04/22 23:59 23:59 23:59 Weight (kg) 62.5 kg 61.5 kg 62 kg Intake & Output: Intake and Output Totals x24h 10/02/22 10/03/22 10/04/22 23:59 23:59 23:59 Intake Total 1100 1600 300 Output Total 460 3150 800 Balance 640 -4710 -500 - Lab Results Lab Results: 10/03/22 05:17 10/03/22 05:17 - Imaging Results Radiology Imaging: positive: Final report received Imaging Results Comments: CXR shows stable PTX, improved fluid after CT to waterseal for greater than 12 hours. - Current Medications Current Medications: Current Medications Generic Name Dose Route Start Last Admin Trade Name Freq PRN Reason Stop Dose Admin Acetaminophen 650 mg 10/02/22 17:44 10/04/22 11:35 Acetaminophen 325 Mg Tablet PO 650 mg Q4HR PRN Administration Pain 1 to 4, or Fever Lidocaine/Prilocaine 5 applic 10/03/22 09:00 10/04/22 11:31 Lidocaine/Prilocaine 2.5% Cream 5 Gm Tube TOP Not Given UD AYANNA Metoprolol Tartrate 25 mg 10/02/22 21:00 10/04/22 08:34 Metoprolol Tartrate 25 Mg Tablet PO 25 mg BID AYANNA Administration Naproxen 250 mg 10/02/22 18:20 10/04/22 04:24 Naproxen 250 Mg Tablet PO 250 mg TID PRN Administration NEEDED PER PROVIDER ORDERS Sodium Chloride 10 ml 10/03/22 01:00 10/04/22 08:37 Sodium Chloride Flush 0.9% 10 Ml Syringe IVP 10 ml 0100,0900,1700 AYANNA Administration Tramadol HCl 50 mg 10/02/22 17:52 10/04/22 11:08 Tramadol 50 Mg Tablet PO 50 mg QID PRN Administration Moderate Pain (Level 4-6) - Physical Exam Wound/Incisions: positive: Drainage (serous) General Appearance: positive: No acute distress, Alert Eyes Bilateral: positive: Normal inspection Respiratory: positive: No respiratory distress, Other (R CT to waterseal) Cardiovascular: positive: Regular rate & rhythm Abdomen: positive: Non-tender, No distention. negative: Guarding, Rebound Skin: positive: Color nml, No rash Extremities: positive: Non-tender, Full ROM Neurologic/Psychiatric: positive: Oriented x3 Impression/Plan - Problem List Problem List: 77-year-old gentleman with: 1. Recurrent right hydropneumothorax -R Lung is partially reexpanded, stable on repeat CXR with CT to waterseal. -HD stable since tube placed. -Planning for placement of Pleurx catheter today. Plan in place for teaching re Pleurx tomorrow AM. Supplies ordered and will discharge with some supplies. Plan for discharge in AM. I greatly appreciate the assistance of the CM/SW team. -I discussed the imaging findings and plan of care with the patient. He voiced understanding, his questions were answered, and he is agreeable to this plan of care. 2. Stage Edmond adenocarcinoma of the lung - PAC placed last week, planning to start chemo next week 3.Atrial fibrillation patient spontaneously converted to NSR I plan to discharge on metoprolol and Eliquis. He will need an event monitor to determine the duration of anticoagulation. - I have spoken with Dr. Llanos of internal medicine appreciate her input and guidance. 3. CLL, BPH, hypertension, hyperlipidemia -home meds restarted SCDs for DVT prophylaxis NPO for procedure DNR code status The patient has been admitted as inpatient to floor. I would like him to follow up with me in clinic in 2 weeks.
--- NOTE | 2022-10-04 14:29 | ANESTHESIA ---
Pre-Anesthesia VS, & Labs - Diagnosis malignant pleural effusion - Procedure pleural catheter placement Vital Signs: Temp Pulse Resp BP Pulse Ox O2 Flow Rate 36.4 C L 74 17 99/53 L 80 L 2 10/04/22 13:00 10/04/22 13:00 10/04/22 13:00 10/04/22 13:00 10/04/22 13:00 10/02/22 20:00 Height: 6 ft 3 in Weight (kg): 62 kg Body Mass Index: 17.0 BMI Classification: Underweight - NPO >8 hours - Lab Results Current Lab Results: Laboratory Tests 10/03/22 05:17: Sodium 139, Potassium 4.4, Chloride 102, Carbon Dioxide 31, Anion Gap 6.0, BUN 24 H, Creatinine 1.1, Estimated GFR (MDRD) 65 L, Glucose 109 H, Calcium 8.4 L 10/03/22 05:17: WBC 11.8 H, RBC 3.54 L, Hgb 10.7 L, Hct 34.0 L, MCV 96.0 H, MCH 30.2, MCHC 31.5 L, RDW 13.9, Plt Count 405, MPV 8.6 10/02/22 18:57: TSH 1.36 10/02/22 18:57: Troponin I High Sens 8.9 10/02/22 11:49: Sodium 133 L, Potassium 3.9, Chloride 97 L, Carbon Dioxide 29, Anion Gap 7.0, BUN 25 H, Creatinine 1.2, Estimated GFR (MDRD) 59 L, Glucose 148 H, Calcium 8.4 L 10/02/22 11:49: PT 13.5 H, INR 1.2 10/02/22 11:49: WBC 14.0 H, RBC 3.93 L, Hgb 12.0 L, Hct 37.2 L, MCV 94.7 H, MCH 30.5, MCHC 32.3, RDW 13.6, Plt Count 434, MPV 8.7, Neut # (Auto) 12.5 H, Lymph # (Auto) 0.5 L, Motley # (Auto) 0.8, Eos # (Auto) 0.0, Baso # (Auto) 0.0, Absolute Nucleated RBC 0.00, Nucleated RBC % 0.0 Fish Bones: 10/03/22 05:17 10/03/22 05:17 Home Medications and Allergies Home Medications: Ambulatory Orders Acyclovir 1 tab PO BID 10/03/22 Albuterol Sulfate [Proventil Hfa] 2 puffs PO QID PRN 10/03/22 Multivitamin W/Minerals [Theragran M] 1 tab PO DAILY 10/03/22 Active Medications Acetaminophen (Acetaminophen 325 Mg Tablet) 650 mg PO Q4HR PRN PRN Reason: Pain 1 to 4, or Fever Last Admin: 10/04/22 11:35 Dose: 650 mg Hydromorphone HCl (Hydromorphone 0.5 Mg/0.5 Ml Syringe) 0.5 mg IVP Q2H PRN PRN Reason: Pain 8 to 10 Lidocaine/Prilocaine (Lidocaine/Prilocaine 2.5% Cream 5 Gm Tube) 5 applic TOP UD [facility] Last Admin: 10/04/22 11:31 Dose: Not Given Metoprolol Tartrate (Metoprolol Tartrate 25 Mg Tablet) 25 mg PO BID [facility] Last Admin: 10/04/22 08:34 Dose: 25 mg Multi-Ingredient Ointment (Zinc Oxide 20% Oint 30 Gm Tube) 1 applic TOP PRN PRN PRN Reason: Skin Care Naproxen (Naproxen 250 Mg Tablet) 250 mg PO TID PRN PRN Reason: NEEDED PER PROVIDER ORDERS Last Admin: 10/04/22 04:24 Dose: 250 mg Ondansetron HCl (Ondansetron 4 Mg/2 Ml Vial) 4 mg IVP Q6HR PRN PRN Reason: Nausea / Vomiting Prochlorperazine Maleate (Prochlorperazine 5 Mg Tablet) 10 mg PO Q6HR PRN PRN Reason: Nausea / Vomiting Sodium Chloride (Sodium Chloride Flush 0.9% 10 Ml Syringe) 10 ml IVP PRN PRN PRN Reason: NEEDED PER PROVIDER ORDERS Sodium Chloride (Sodium Chloride Flush 0.9% 10 Ml Syringe) 10 ml IVP 0100,0900,1700 [facility] Last Admin: 10/04/22 08:37 Dose: 10 ml Tramadol HCl (Tramadol 50 Mg Tablet) 50 mg PO QID PRN PRN Reason: Moderate Pain (Level 4-6) Last Admin: 10/04/22 11:08 Dose: 50 mg Naproxen Sodium [Aleve] 220 mg PO QID PRN 09/24/22 traMADol [Ultram] 50 mg PO QID PRN 09/24/22 Acyclovir 1 tab PO BID 10/03/22 Albuterol Sulfate [Proventil Hfa] 2 puffs PO QID PRN 10/03/22 Multivitamin W/Minerals [Theragran M] 1 tab PO DAILY 10/03/22 Allergies/Adverse Reactions: Allergies Allergy/AdvReac Type Severity Reaction Status Date / Time No Known Drug Allergies Allergy Verified 10/02/22 11:39 Anes History & Medical History - Anesthetic History Anesthesia Complications: reports: No previous complications Family history of Anesthesia Complications: Denies Family history of Malignant Hyperthermia: Denies - Medical History Cardiovascular: reports: Atrial fibrillation Pulmonary: reports: Shortness of breath, Other (lung CA, recent VATS, R chest tube) Gastrointestinal: reports: None Urinary: reports: Renal insuffiency Neuro: reports: None Musculoskeletal: reports: Osteoarthritis, Chronic back pain (From 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 multiple myeloma and lower T-spine and upper L-spine) Endocrine/Autoimmune: reports: None Blood Disorders: reports: None Skin: reports: Other Smoking Status: Former smoker History of Cancer?: Yes Other Past Medical History: CLL, mutliple myeloma, lung cancer, pleural effusion - Surgical History General: reports: Other (port) Cardiothoracic: reports: Other (VATS and chest tube placements) Dermatologic: reports: Other Other Past Surgical History: PAC placement Exam General: Alert, Oriented x3, Cooperative Dental: WNL Mouth Openin Fingerbreadth Neck Mobility: Normal Mallampati classification: I Thyromental Distance: 4-6 cm Respiratory: Lungs clear, Decreased breath sounds Plan Anesthesia Type: General, Total IV Consent for Procedure(s) Verified and Reviewed: Yes Code Status: Do Not Attempt Resuscitation ASA classification: 4-Incapacitating disease Is this case an emergency?: No
[2022-10-04] MEDS ORDERED: MIDAZOLAM 2 MG/2 ML VIAL ONE (14:41)
[2022-10-04] MEDS ORDERED: PROPOFOL 200 MG/20 ML VIAL IVP ONE ×2 (14:44→14:46)
[2022-10-04] MEDS ORDERED: ceFAZolin 1 GM VIAL ONE (15:09)
[2022-10-04] MEDS ORDERED: ePHEDrine 50 MG/ML VIAL IVP ONE (15:18)
[2022-10-04] MEDS ORDERED: LIDOCAINE MPF 2%-EPI 1:200000 10 ML VIAL ID ONE ×2 (15:24)
--- NOTE | 2022-10-04 16:21 | ANESTHESIA POST OP EVALUATION ---
Anesthesia Post Eval - Post Anesthesia Eval Vitals: Last Vital Signs Temp 36.4 C L 10/04/22 13:00 Pulse 74 10/04/22 13:00 Resp 17 10/04/22 13:00 BP 99/53 L 10/04/22 13:00 Pulse Ox 80 L 10/04/22 13:00 O2 Flow Rate 2 10/02/22 20:00 CV Function Including HR & BP: Stable Pain Control: Satisfactory Nausea & Vomiting: Negative Mental Status: Baseline Respiratory Status: Airway Patent Hydration Status: Satisfactory Anesthesia Complications: None
[2022-10-04] MEDS ORDERED: CYANOCOBALAMIN 1,000 MCG/ML VIAL IM ONE (16:23)
--- NOTE | 2022-10-04 16:37 | XRAY Report ---
PROCEDURE: Chest 2 View X-Ray INDICATIONS: tube placement TECHNIQUE: 2 views of the chest were acquired. COMPARISON: Chest x-ray 10/04/2022 FINDINGS: Surgical changes and devices: Interval right chest tube placement overlying the right apex. Left Por t-A-Cath. Lungs and pleura: There is complete opacification of the right hemithorax likely related to previous ly identified pleural effusion. Small residual opacity overlies the apex. Mediastinum: Mediastinal contours appear normal. Heart size is normal. Bones and chest wall: No suspicious bony lesions. Overlying soft tissues appear unremarkable. IMPRESSION: Interval left chest tube placement with near complete although small residual pneumothorax. Underlyin g hydropneumothorax cannot be definitively excluded given presence of effusion. Reviewed by: Jade Enciso MD on 10/04/2022 4:36 PM PDT Approved by: Jade Enciso MD on 10/04/2022 4:36 PM PDT Station ID: [id number]
--- NOTE | 2022-10-04 17:08 | OPERATIVE REPORT ---
Operative Report - General Admit Date: 10/02/22 Procedure Date: 10/04/22 Planned Procedure: placement of R pleurx catheter, removal of right chest tube Pre-Op Diagnosis: recurrent, malignant pleural effusion Procedure Performed: placement of R pleurx catheter, removal of right chest tube Post Op Diagnosis: recurrent, malignant pleural effusion - Procedure Note Primary Surgeon: Dr. Charlotte Mendez Anesthesia Provider: Koki Villatoro CRNA Anesthesia Technique: Local, MAC Estimated Blood Loss (mL): 5 Drain/Tube Type: Other (Pleurx, R chest) Indications: The patient has had a recurrent right-sided pleural effusion since April of last year. He has had a failed pleurodesis and continues to have recurrent effusions. He had a pleural biopsy which revealed stage Edmond adenocarcinoma of the lung. He had a long-term chest tube which was removed about 2 weeks ago. Since that time, he has had slow buildup of fluid and presented to the emergency department hemodynamically unstable. A new chest tube was placed. The elizabeth ent's symptoms improved. I discussed options with the patient including trialing removal of the tube again versus placement of a Pleurx catheter which would allow him to drain the fluid as needed. We discussed the risks, benefits, and alternatives of placement of the Pleurx catheter including bleeding, infection, damage to surrounding structures, dysfunction of the tube, and the possible need for further surgeries or procedures. The patient voiced understanding, his questions were answered, and he wished to proceed. A consent was signed by the patient prior to surgery. Findings: 1. Right chest tube removed, intact 2. Patient desatted with attempted use of Pleurx catheter Complications: Desaturation with attempted use of Pleurx catheter. The O2 sat probe was not in excellent position, and when it was replaced, the patient's sats were noted to be improved. - Other Other Information/Narrative: The procedure was performed in the operative suite. Preoperative antibiotics were given. The patient was prepped and draped in the usual sterile fashion. A preop surgical timeout was performed. Once anesthesia was induced to the appropriate level of consciousness, the previously placed right chest tube was removed and noted to be intact. Next, location was chosen for the Pleurx catheter and a second location approximately 5 cm away where it would exit the skin. Both locations were numbed with local anesthesia as well as the tract through which the catheter would be tunneled. A Cook needle was used to gain access to the pleural space making sure to go just over a rib and avoid the neurovascular bundle. Air was withdrawn. A guidewire was placed through the needle with no significant resistance. The needle was removed leaving only the catheter in place. The Pleurx catheter was tunneled under the skin. A dilator and sheath was passed over the guidewire. The dilator was removed. The catheter was passed through the sheath and the sheath was removed. Care was taken to ensure that the catheter was not kinked. The catheter was then hooked up to the Pleurx drainage canister. Upon injection to the cath canister, the patient desatted into the low 80s. His O2 sat probe was placed on a different finger and a good waveform was obtained. The patient's sats rapidly improved at this time. It is unclear if the desaturation was a function of a poorly placed O2 sat probe or an indication that the Pleurx catheter is not in a good position. An immediate chest x-ray in the operating room is not of sufficient quality to clarify the position of the tube. Postoperative imaging is pending at this time. Upon waking in the operating room, the patient states that he feels "much better" than prior to the procedure. He was transferred to radiology awake and in stable condition.
[2022-10-05] MEDS: SODIUM CHLORIDE FLUSH 0.9% 10 ML SYRINGE IVP SCH ×2 (00:01→09:03)
[2022-10-05] MEDS: NAPROXEN 250 MG TABLET PO PRN ×2 (06:15)
[2022-10-05] MEDS: traMADol 50 MG TABLET PO PRN ×2 (06:16)
[2022-10-05 07:47] VITALS: BP 98/48
--- NOTE | 2022-10-05 08:03 | Discharge Plan ---
Discharge Plan Problem Reviewed?: Yes Disposition: Home, Self Care Condition: Good Prescriptions: Apixaban [Eliquis] 2.5 mg PO BID #60 tab Metoprolol Tartrate [Lopressor] 25 mg PO BID 30 Days #60 tab Diet: Regular Activity Restrictions: No Restrictions Shower Restrictions: No Driving Restrictions: No Weight Bearing: Full Weight Instruction Topics: Effusion Pleural, Tube Chest Ch Additional Instructions or Follow Up instructions: Follow up with Dr. Banerjee. You will need a cardiac event montior for 30 days to determine how long you need to be on the Eliquis (blood thinner). [place] [facility] [place] You will be starting chemotherapy. Bring a drainage kit for your Pleurx with you to this appointment. Do NOT drain Pleurx prior to your appointment next Saturday. If you are having increased trouble breathing before next Saturday, come to the ED. Do NOT do first drainage at home alone. If [place] goes well [place] [facility] future drainage can be done at home. [place] Care[place] [facility] [place] Medical No Smoking: If you smoke, Please STOP! Call for help. Follow-up with: Vince Banerjee MD [Primary Care Provider] - Henrik Mendez MD [Provider Admit Priv/Credential] -
[2022-10-05] MEDS ORDERED: APIXABAN 2.5 MG TABLET PO SCH (09:00)
[2022-10-05] MEDS: METOPROLOL TARTRATE 25 MG TABLET PO SCH (09:03)
[2022-10-05] MEDS: LIDOCAINE/PRILOCAINE 2.5% CREAM 5 GM TUBE TOP SCH (09:03)
--- NOTE | 2022-10-05 09:33 | CT Report ---
PROCEDURE: CHEST WO INDICATIONS: verify tube position TECHNIQUE: Noncontrast 1mm axial images were acquired from the pulmonary apices to the posterior costophrenic an gles. Axial 5 mm soft tissue kernel reconstructions were performed as well as 8 mm axial MIP and cor onal and sagittal 5 mm reformations. For radiation dose reduction, the following was used: automate d exposure control, adjustment of mA and/or kV according to patient size. COMPARISON: X-ray 10/04/2022 FINDINGS: Image quality: Excellent. Lungs and pleura: Right-sided large bore chest tube is present. The tip terminates in the right lung apex and the side-port is within the gas component. There is a complex right-sided hydropneumothorax, with heterogeneous attenuation and pleural thickening. Complete atelectasis of the right upper lobe. Debris within the right central airway. Peripheral reticulation in the lung bases. No honeycombing. Mild paraseptal emphysema. Mediastinum: Heart size is normal. No pericardial effusions. No mediastinal adenopathy by size criter ia. No large vessel abnormality. Three-vessel coronary calcifications. Chest wall and lower neck: Thyroid is unremarkable. No axillary or supraclavicular adenopathy by size . Bones: Osteoporosis. Compression deformity of the T12, L1 and L2 vertebral bodies, without endplate r etropulsion. These are chronic. Upper Abdomen: Unremarkable. IMPRESSION: Properly positioned chest tube, with the tip terminating in the right lung apex and the side port ter minating within the gaseous component of the complex after pneumothorax. Complex right-sided hydropneumothorax, containing internal heterogeneous debris and pleural thickenin g. Empyema not excluded based on this appearance. Reviewed by: Vasu Gonzalez on 10/05/2022 9:31 AM PDT Approved by: Vasu Gonzalez on 10/05/2022 9:31 AM PDT Station ID: [id number]
--- NOTE | 2022-10-05 10:57 | PROVIDER PROGRESS NOTE ---
Progress Note October 05, 2022 10:50 AM His palliative care provider came by to see him today. Joselyn Hernández. We updated each other on what is going on with Mr. Salamanca. He continues to be comfortable. No chest pain, coughing, palpitations. He has been in sinus rhythm since the day of admission. EKG confirmed sinus. He has had a successful placement of his Pleurx catheter. General surgery has worked with case management about getting the appropriate supplies. Training the patient. Tubing, bottles, etc. Temperature is 36.6. Blood pressure 98/48. (I started him on metoprolol for A- fib) heart rate in the 80s. O2 sat is 94% on room air. Very thin gentleman, almost cachectic. Coarse upper airway sounds right lung. Diminished breath sounds at the bases left lung. But no increased respiratory effort or respiratory distress. Pleurx catheter in place. When he gets up and walks in the room he gets mildly dyspneic. He has a cough but it is weak. Nonproductive. Regular rate and rhythm with a systolic ejection murmur Abdomen is soft, nontender, normal bowel sounds with a bowel movement today. Extremities without edema Neurologically he is alert, oriented, mildly deaf, able to get up on his own without any assistance, ataxia. Lab: Last BMP was normal on October 03. He did not need daily labs. Last CBC on October 03 had a white cell count of 11.8, hemoglobin 10.7. Assessment/plan 1. New onset atrial fibrillation. TSH negative, troponin negative, CT pulmonary angiogram for PE negative. I feel most likely that his atrial fibri llation is from irritation from low pleural effusions. His echocardiogram shows normal atrial size. Normal ventricular size and function without segmental wall abnormalities. No elevated pulmonary pressures. And no valvular heart disease. I would recommend that he be on anticoagulation for at least a month. In that month he should have an event monitor or monitoring device. We need to verify that he is not going in and out of atrial fibrillation. If after a month there is no atrial fibrillation, I would think he could safely go off Eliquis. As for his metoprolol, this was started for rate control. It has resulted in mild hypotension in this gentleman. We have given him parameters to hold for blood pressure and pulse. However, he should follow-up with his primary care provider to make sure we have him follow through on this plan. 2. Stage IV lung cancer. Being managed by [facility] oncology. Complication has been that of recurrent pleural effusion that has not responded to a previous Pleurx catheter, VATS procedure. Now has a new Pleurx catheter. His palliative care provider was here to see him today. She will also follow him in the outpatient setting to help him with pain, nutrition, and logistics of living alone. 3. Severe protein calorie malnutrition. He has significant muscle wasting, loss of subcutaneous fat. He eats less than 50% of recommended intake for weeks now. This is resulted in increasing shortness of breath. He is lost 50 pounds in the last year. Started out at 187 pounds and is now 136 pounds. He is lost approximately 27% of his weight. BMI is now 16.9. Nutrition services is consulted with him. They have gone over some tricks about increasing his caloric intake and putting on some weight. This is emphasized to him in face of someone who is about to start chemotherapy in the next 2 to 3 weeks for his lung cancer.
--- NOTE | 2022-10-05 21:16 | DISCHARGE SUMMARY ---
Discharge Summary Admit Date: 10/02/22 Discharge Date: 10/05/22 Discharging Provider: Dr. Charlotte Mendez Primary Care Provider: Dr. Ann Code Status: Do Not Attempt Resuscitation Condition at Discharge: Good Discharge Disposition: 01 Home, Self Care - DIAGNOSES Admission Diagnoses: recurrent malignant pleural effusion, acute exacerbation Discharge Diagnoses with Status of Each Condition: 1. recurrent malignant pleural effusion, stable, improved 2. stage IV a lung ca, stable 3. multiple myeloma, stable 4. CLL, stable 5. 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 The patient has had recurrent pleural effusions for the last many months requiring thoracenteses and multiple chest tube placements. In June, the patient was transferred to [facility] and seen by a cardiothoracic surgeon who performed a VATS and pleurodesis. Lung biopsy at that time revealed stage IV non-small cell adenocarcinoma of the right lung. Unfortunately, the patient's pleural effusion did not improve after this procedure, and a Pleurx catheter was placed. His output was low, so the Pleurx was removed approximately 2 weeks ago. The patient states he has had a decreased appetite for the last couple of weeks. He has lost a significant amount of weight over the last 6 months. He initially weighed over 200 pounds, and now weighs approximately 140 pounds.He denies any nausea or vomiting. He does endorse constipation related to his chronic use of tramadol. This is controlled with stool softeners. He denies any blood in his stools or black tarry stools. For the last several days, the patient has felt increasing difficulty with breathing. Today, he states "I was huffing and puffing" and he came to the emergency department where he was found to be in respiratory distress and hemodynamically unstable. This improved markedly with placement of a chest tube. The patient's thoracic surgeon was notified and felt that there were no additional surgical interventions that would be helpful to the patient, and declined transfer. For management of the patient's chest tube, and likely place ment of a Pleurx catheter later this week, the patient is being admitted. Notably, the patient was also found to be in atrial fibrillation in the emergency department (rhythm noted to be present on arrival), but the patient is now HD stable with a HR in the low 100s. He denies chest pain or feeling of palpations. - CONSULTS | PROCEDURES Consultations: Medicine (Dr. Llanos) for a fib management Procedures: placement and subsequent removal of R chest tube placement of right sided pleurx catheter - HOSPITAL COURSE Hospital Course: After having a chest tube placed in the ED, the patient's thoracic surgeon was contacted and felt no additional treatment was needed for the patient's effusio n. He was admitted to the surgical service and medicine was consulted for his newly diagnosed atrial fibrillation. Workup was negative for PE and ACS. The patient spontaneously converted to NSR. After discussion with the patient's oncologist, it was felt the best way to manage his effusion terminal make up operator (which has not previously improved after VATS and pleurodesis) was to place a PleurX catheter. This will allow the patient to intermittently drain his recurrent effusion at home. The PleurX was placed. The patient desatted in the OR on initial drainage attempt using the PleurX so imaging was used to confirm correct positioning of the tube. It is felt the desaturation event was more likely related to sedation medications and poor perfusion of the finger which the O2 probe was on as his sats quickly improved when the probe was changed to another digit. Postoperatively, the patient returned to the floor and did well, including satting well on RA, tolerating a diet, and having good pain control with PO meds. He was felt stable for discharge to home with plan for close f/u with PCP for event monitor to determine the duration of anticoagulation and with the MAC for chemotherapy to treat his lung cancer. He is to follow up with Dr. Mendez in two weeks. - ALLERGIES Allergies/Adverse Reactions: Allergies Allergy/AdvReac Type Severity Reaction Status Date / Time No Known Drug Allergies Allergy Verified 10/02/22 11:39 - MEDICATIONS Home Medications: Ambulatory Orders Medication Instructions Recorded Confirmed traMADol [Ultram] 50 mg PO QID PRN 09/24/22 10/03/22 Lidocaine/Prilocain 2.5% Cream 5 applic TOP UD #1 each 10/01/22 10/03/22 [Emla 2.5% Cream] Albuterol Sulfate [Proventil Hfa] 2 puffs PO QID PRN 10/03/22 10/03/22 Multivitamin W/Minerals [Theragran 1 tab PO DAILY 10/03/22 10/03/22 M] Acetaminophen [Tylenol] 650 mg PO Q4HR PRN tab 10/05/22 Apixaban [Eliquis] 2.5 mg PO BID #60 tab 10/05/22 Metoprolol Tartrate [Lopressor] 25 mg PO BID 30 Days #60 tab 10/05/22 Prochlorperazine [Compazine] 10 mg PO Q6HR PRN tab 10/05/22 Zinc Oxide 20% Oint [Zinc Oxide] 1 applic TOP PRN PRN each 10/05/22 - PHYSICAL EXAM AT DISCHARGE General Appearance: positive: No acute distress, Alert Eyes Bilateral: positive: Normal inspection ENT: positive: No signs of dehydration Neck: positive: Trachea midline Respiratory: positive: Other (appropriate incisional ttp. Incisions c/d/i with suture in place. Pleurx dressing c/d/i.) Cardiovascular: positive: Regular rate & rhythm Peripheral Pulses: positive: 2+ Abdomen: positive: Non-tender Skin: positive: Color nml, No rash Extremities: positive: Non-tender, Full ROM Neurologic/Psychiatric: positive: Oriented x3 - LABS Result Diagrams: 10/03/22 05:17 10/03/22 05:17 - DIAGNOSTIC IMAGING Diagnostic Imaging Results: Final report reviewed Diagnostic Imaging Results Comments: I personally reviewed the images and reports from the patient's CXR and CT yesterday. - SEPSIS Current Stage of Sepsis: Ruled out - FOLLOW UP Follow Up: Dr. Marissa Mendez
== END 2022-10-05 10:45 | disposition home or self-care (01) | DRG 181 ==
LOC: ED 11:31 → MS2 17:45
PROVIDERS: ADMIT Surgery; ATTEND Surgery
PROC: 0WP930Z Removal of Drainage Device from Right Pleural Cavity, Percutaneous Approach (ICD-10-PCS; 2022-10-04)
PROC: 0W9930Z Drainage of Right Pleural Cavity with Drainage Device, Percutaneous Approach (ICD-10-PCS; principal; 2022-10-04 14:45)
DX: C34.91 Malignant neoplasm of unspecified part of right bronchus or lung (principal); C34.90 Malignant neoplasm of unspecified part of unspecified bronchus or lung; J93.83 Other pneumothorax; C90.00 Multiple myeloma not having achieved remission; Z20.822 Contact with and (suspected) exposure to COVID-19; R09.02 Hypoxemia; J91.0 Malignant pleural effusion; C91.10 Chronic lymphocytic leukemia of B-cell type not having achieved remission; I48.91 Unspecified atrial fibrillation; Z68.1 Body mass index [BMI] 19.9 or less, adult; J94.8 Other specified pleural conditions; I48.0 Paroxysmal atrial fibrillation; R63.0 Anorexia; K59.03 Drug induced constipation; T40.425A Adverse effect of tramadol, initial encounter; G89.29 Other chronic pain; M54.50 Low back pain, unspecified; Z87.891 Personal history of nicotine dependence; M54.6 Pain in thoracic spine; Z66 Do not resuscitate; R39.15 Urgency of urination; R35.1 Nocturia; R53.1 Weakness; E78.5 Hyperlipidemia, unspecified; I95.2 Hypotension due to drugs; T44.7X5A Adverse effect of beta-adrenoreceptor antagonists, initial encounter; Y92.239 Unspecified place in hospital as the place of occurrence of the external cause; R63.4 Abnormal weight loss; I10 Essential (primary) hypertension
CPT/HCPCS: 32551; 36415; 71045; 71250; 71275; 80048; 84443; 84484; 85025; 85027; 85610; 87635; 93005; 93306; 96361; 96365; 96375; 99152; 99285; A9270; J3490; 94770

== ENCOUNTER 2022-10-31 10:09 | Outpatient (CLI) | payer OTHER | END 2022-10-31 23:59 | disposition critical access hospital (66) | LOC: EMS 10:09 | DX: R06.02 Shortness of breath (principal); R53.83 Other fatigue; Z99.81 Dependence on supplemental oxygen | CPT/HCPCS: A0425; A0429 ==

== ENCOUNTER 2022-10-31 10:31 | Emergency (ER) | payer OTHER ==
--- NOTE | 2022-10-31 10:42 | ED Physician Documentation ---
PD HPI DYSPNEA - Stated complaint Stated Complaint: SOA - Chief complaint Chief Complaint: Resp - History obtained from History obtained from: Patient, Caregiver, Other (heard from his palliative care as well as Dr. Mendez, surgery that patient was coming to ER. suggested to try dependent position (on side, trendelenburg) to position fluid toward the pleurevac tubing.) - History of Present Illness Timing - onset: Chronic (he has lung cancer with persistent pleural effusion that had been drained several times and subsequently had pleurevac drain placed with intermittent home draining to vacuum seal bottle. Does it every 5-6 days and gets about 300-500 ml each time. Did not get any fluid out with drain attempt yest.) Timing - onset during: Light activity (increasing dyspnea the past several days in particular and feels there is fluid accumulated to lung space and not able to drain it.) Timing - details: Gradual onset Review of Systems Constitutional: denies: Fever, Chills Nose: denies: Rhinorrhea / runny nose, Congestion Throat: denies: Sore throat Cardiac: denies: Chest pain / pressure, Palpitations Respiratory: reports: Dyspnea, Cough, Wheezing GI: denies: Abdominal Pain Musculoskeletal: denies: Extremity swelling PD PAST MEDICAL HISTORY - Past Medical History Cardiovascular: Atrial fibrillation Respiratory: Shortness of breath, Other (lung CA, recent VATS, R chest tube) Neuro: None Endocrine/Autoimmune: None GI: None : Renal insuffiency HEENT: Chronic vision loss, Chronic hearing loss Psych: None Musculoskeletal: Osteoarthritis, Chronic back pain (From 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 multiple myeloma and lower T-spine and upper L-spine) Derm: Other - Past Surgical History Past Surgical History: No General: Other (port) Cardiovascular: Other Derm: Other - Present Medications Home Medications: Ambulatory Orders Medication Instructions Recorded Confirmed traMADol [Ultram] 50 mg PO QID PRN 09/24/22 10/17/22 Lidocaine/Prilocain 2.5% Cream 5 applic TOP UD #1 each 10/01/22 10/17/22 [Emla 2.5% Cream] Albuterol Sulfate [Proventil Hfa] 2 puffs PO QID PRN 10/03/22 10/17/22 Multivitamin W/Minerals [Theragran 1 tab PO DAILY 10/03/22 10/17/22 M] Acetaminophen [Tylenol] 650 mg PO Q4HR PRN tab 10/05/22 10/17/22 Apixaban [Eliquis] 2.5 mg PO BID #60 tab 10/05/22 10/17/22 Metoprolol Tartrate [Lopressor] 25 mg PO BID 30 Days #60 tab 10/05/22 10/17/22 Prochlorperazine [Compazine] 10 mg PO Q6HR PRN tab 10/05/22 10/17/22 Zinc Oxide 20% Oint [Zinc Oxide] 1 applic TOP PRN PRN each 10/05/22 10/17/22 - Allergies Allergies/Adverse Reactions: Allergies Allergy/AdvReac Type Severity Reaction Status Date / Time No Known Drug Allergies Allergy Verified 10/31/22 10:36 - Social History Does the pt smoke?: Yes Smoking Status: Former smoker Does the pt drink ETOH?: Yes Does the pt have substance abuse?: No - Immunizations Immunizations are current?: No - POLST Patient has POLST: No PD ED PE NORMAL - Vitals Vital signs reviewed: Yes - General General: Alert and oriented X 3. No: Well developed/nourished (frail and thin appearing, with left chest port and right chest pleurevac tubing from chest. No redness purulence at eatiher of these. ) - Neck Neck: Supple, no meningeal sign, No adenopathy - Cardiac Cardiac: No murmur. No: RRR (regular but tachycardic. ) - Respiratory Respiratory: No: Clear bilaterally (wheezing diffusely. Coarse wet sounds and much diminished right side. ) - Abdomen Abdomen: Soft, Non tender - Derm Derm: Warm and dry - Extremities Extremities: No edema, No calf tenderness / cord Results - Vitals Vitals: Vital Signs - 24 hr 10/31/22 10/31/22 10/31/22 10:37 10:41 12:17 Temperature 36.9 C Heart Rate 119 H 115 H 108 H Respiratory 30 H 25 H 36 H Rate Blood Pressure 113/66 110/65 110/66 O2 Saturation 94 92 100 If not protocol 5 5 : Oxygen Flow, liters/minute 10/31/22 10/31/22 10/31/22 12:30 13:00 13:30 Temperature Heart Rate 116 H 110 H 117 H Respiratory 26 H 22 26 H Rate Blood Pressure 97/56 L 131/83 H 99/70 O2 Saturation 96 95 94 If not protocol 5 4 4 : Oxygen Flow, liters/minute 10/31/22 10/31/22 10/31/22 14:00 14:30 14:58 Temperature Heart Rate 119 H 116 H Respiratory 23 16 16 Rate Blood Pressure 111/98 H 101/61 O2 Saturation 97 96 If not protocol 4 4 : Oxygen Flow, liters/minute 10/31/22 15:31 Temperature Heart Rate 67 Respiratory 17 Rate Blood Pressure O2 Saturation If not protocol 4 : Oxygen Flow, liters/minute Oxygen O2 Source Nasal cannula Oxygen Flow Rate 5 - Rads (name of study) chest with decubitus views Relevant Findings:: Prelim report reviewed, EMP independent interpretation of test (large effusion and pneumohemothorax, similar to recent CT and other CXRs. Decub ivews show free layering of the fluid to either side. ), See rad report PD Medical Decision Making - ED course Complexity details: re-evaluated patient (patient placed right side down and in trendelenberg bed position, then drainage to vacutainer attempted and readily drained up to about 600 ml. Once sitting back up, the patient said he did feel some improvement in breathing. He is still baselinee dyspnea. Repeat CXR showed much decreased effusion.), considered differential (recurring effusion and his pleural drain is not draining yesterday. Referred to ER by surgery. CXR shows it does layer easily, not loculated. ), d/w patient, d/w jewelry consultant (Dr. Mendez, surgery.) ED course: after draining fluid, he states he did have dyspne of course. Repeat CXR post showed less fluid. There is consolidation/atelectasis of riht lung. Given Albuterol neb and incentive spirometry exercise by RT and he says felt better. He had come without portable oxygen. RT was able to arrange him with oxygen tank for getting home that will get returned by his home oxygen service provider. Departure - Departure Disposition: 01 Home, Self Care Clinical Impression: Pleural effusion, malignant, Lung cancer Condition: Stable Record reviewed to determine appropriate education?: Yes Follow-Up: Joselyn Hernández ARNP [Provider Admit Priv/Credential] - Henrik Mendez MD [Provider Admit Priv/Credential] - Comments: You have drained a fair amount from your Pleur-evac. Your chest x-ray relatively looks much better. Obviously there is still a lot of abnormality on that side but the fluid amount is visibly decreased as well. Continue follow-up with ino Hernández and also your oncologist. With subsequent drainage attempts, it may require you to get a similar positioning in order to drain out better. Return to the ER if needed. I did talk with Dr. Mendez for surgery who had suggested these maneuvers to try to improve drainage. She was pleased that it did allow for better drainage. Discharge Date/Time: 10/31/22 15:40
--- NOTE | 2022-10-31 12:13 | XRAY Report ---
PROCEDURE: Chest 4 Views X-Ray INDICATIONS: effusions; has drain; decub views ? loculated TECHNIQUE: 4 views of the chest were acquired. COMPARISON: Chest CT, 10/04/2022. Chest x-ray, 10/04/2022 FINDINGS: Surgical changes and devices: There is a thoracostomy tube on the right. Lungs and pleura: Large right hydropneumothorax. There is interstitial infiltrates in left lung, com patible with pulmonary edema. Mediastinum: Mediastinal contours are normal. Heart size is normal. Bones and chest wall: No suspicious bony abnormalities. Soft tissues appear unremarkable. IMPRESSION: 1. Large right hydropneumothorax. No findings to suggest tension pneumothorax. 2. Diffuse interstitial infiltrates left lung suspicious for pulmonary edema. Reviewed by: Sen Hallman MD on 10/31/2022 12:11 PM PDT Approved by: Sen Hallman MD on 10/31/2022 12:11 PM PDT Station ID: [id number]
--- NOTE | 2022-10-31 14:22 | XRAY Report ---
PROCEDURE: Chest 1 View X-Ray INDICATIONS: chest pain TECHNIQUE: One view of the chest was acquired. COMPARISON: Study from the same day and 10/04/2022. FINDINGS: Surgical changes and devices: Right-sided chest tube is again seen. Left chest wall Port-A-Cath tip is in SVC. Lungs and pleura: There is interval decrease in size of patient's earlier noted large right-sided hy dropneumothorax. No left-sided pneumothorax. No significant left-sided pleural effusion. Mediastinum: Mediastinal contours appear normal. Heart size is normal. Bones and chest wall: No suspicious bony lesions. Overlying soft tissues appear unremarkable. IMPRESSION: Interval decrease in size of patient's known right-sided hydropneumothorax. Diffuse interstitial lung disease unchanged from previous studies. Reviewed by: Dion Curry MD on 10/31/2022 2:20 PM PDT Approved by: Dion Curry MD on 10/31/2022 2:20 PM PDT Station ID: [id number]
[2022-10-31 14:37] VITALS: BP 101/61
[2022-10-31] MEDS ORDERED: ALBUTEROL NEB 2.5 MG/3 ML INH STA (15:09)
== END 2022-10-31 15:40 | disposition home or self-care (01) ==
LOC: EDBD → ED 10:31
DX: C34.90 Malignant neoplasm of unspecified part of unspecified bronchus or lung (principal); J91.0 Malignant pleural effusion; I48.91 Unspecified atrial fibrillation; Z79.01 Long term (current) use of anticoagulants; Z79.899 Other long term (current) drug therapy; Z87.891 Personal history of nicotine dependence
CPT/HCPCS: 94640; 99284; 99285

== ENCOUNTER 2022-11-02 14:00 | Outpatient (CLI) | payer OTHER | END 2022-11-02 23:59 | disposition E | LOC: EMS 14:00 ==